=== PATIENT | male | born 1965 | race Caucasian/White ===

== ENCOUNTER → 2020-03-17 08:30 | Outpatient (CLI) | payer OTHER, SELFPAY ==
--- NOTE | ~2020-03-17 | MR_ITS ---
EXAMINATION: MR knee RT wo con DATE: 03/17/2020 09:20 INDICATION: Generalized right knee pain TECHNIQUE: Magnetic resonance imaging (MRI) of the right knee was performed without intravenous contr ast. Sequences included coronal PD-weighted FSE, coronal PD-weighted FS FSE, sagittal T2-weighted FS E, sagittal PD-weighted FS FSE and axial PD weighted fat saturated FSE. COMPARISON: None. FINDINGS: Medial compartment: Complex tear at the posterior body and medial side of the posterior horn of the medial meniscus. Sepa rate small radial tear involving the inner third of the more lateral posterior horn. Chondral surface regularity and shallow fissuring without degenerative subarticular changes at the central aspect of the medial tibial plateau. Cartilage along the weightbearing medial femoral condyle appears normal. Lateral compartment: Partial-thickness chondral fissure extending anteroposteriorly across the central aspect of the later al tibial plateau. Cartilage along the weightbearing lateral femoral condyle appears normal.. Patellofemoral compartment: Deep chondral fissuring which appears near full-thickness without degenerative subarticular changes a t the site of the lateral patellar facet along side the apical ridge. Additional chondral fissuring i nvolving greater than 50% the cartilage thickness at the medial facet. Trochlear cartilage appears no rmal. Ligaments and tendons: Anterior and posterior cruciate ligaments are normal. The medial collateral ligament and fibular adrian ateral ligament complex are normal. The extensor mechanism is normal. The visualized medial and later al hamstring tendons as well as the iliotibial band are normal. Fluid: Minimal right knee joint effusion. No loose osteochondral bodies identified. Small Marie's cyst. Osseous/other: Bone alignment is normal. Normal marrow signal with no fracture or pathologic marrow replacing proces s. There is edema in the superficial suprapatellar fat pad which can be seen with fat pad impingement syndrome. IMPRESSION: 1. Complex medial meniscal tear. 2. Mild tricompartmental osteoarthritis with regions of moderate grade chondromalacia in all 3 compar tments. 3. Edema in the superficial suprapatellar fat pad which can be seen with fat pad impingement syndrome . 4. Minimal right knee joint effusion and small Marie's cyst. Reviewed, dictated and finalized at location A. IMPRESSION: 1. Complex medial meniscal tear. 2. Mild tricompartmental osteoarthritis with regions of moderate grade chondrom alacia in all 3 compartments. 3. Edema in the superficial suprapatellar fat pad which can be seen with fat pa d impingement syndrome. 4. Minimal right knee joint effusion and small Marie's cyst.
== END ==
PROVIDERS: PCP Family Medicine; Visit Provider Nurse Practitioner Family
DX: M25.561 Pain in right knee (principal); M17.11 Unilateral primary osteoarthritis, right knee; S83.231A Complex tear of medial meniscus, current injury, right knee, initial encounter; X58.XXXA Exposure to other specified factors, initial encounter
CPT/HCPCS: 73721

== ENCOUNTER 2020-04-19 12:32 | Outpatient (CLI) | payer OTHER, SELFPAY ==
--- NOTE | 2020-04-19 12:37 | ECG_ITS ---
Measurements Intervals [place] Rate: 78 P: 61 OR: 205 QRS: 71 QRSD: 95 T: 35 QT: 340 QTc: 389 Interpretive Statements SINUS RHYTHM BORDERLINE ST ABNORMALITY- INFERIOR LEADS BORDERLINE ECG Electronically Signed On 04-19-2020 13:07:00 CDT by Naeem Montes D.O.
[2020-04-19 13:21] LABS: Anion Gap 10.8 mmol/L (7-16); Blood Urea Nitrogen 21 mg/dL (9-20); Calcium 9.5 mg/dL (8.4-10.2); Carbon Dioxide 29 mmol/L (22-30); Chloride 100 mmol/L (98-107); Estimated Glomerular Filt Rate > 60; Glucose 104 mg/dL (75-110); Potassium 3.8 mmol/L (3.4-5.0); Sodium 136 mmol/L (137-145)
== END 2020-04-19 12:33 | disposition home or self-care (01) ==
LOC: ANHSURGERY 12:37
PROVIDERS: Anesthesiology; PCP Family Medicine; Visit Provider Orthopaedic Surgery
DX: Z01.818 Encounter for other preprocedural examination (principal); I10 Essential (primary) hypertension
CPT/HCPCS: 36415; 80048; 93005

== ENCOUNTER 2020-04-26 00:27 | Outpatient (CLI) | payer OTHER, SELFPAY ==
[2020-04-26 18:53] LABS: SARS-CoV-2 RNA PCR Negative
== END 2020-04-26 00:28 | disposition home or self-care (01) ==
LOC: ANHCOVIDDT 00:27
PROVIDERS: PCP Family Medicine; Visit Provider Orthopaedic Surgery
DX: Z01.812 Encounter for preprocedural laboratory examination (principal); Z11.59 Encounter for screening for other viral diseases
CPT/HCPCS: 87635; C9803; U0003

== ENCOUNTER 2020-04-28 00:05 | Day surgery (SDC) | payer OTHER, SELFPAY ==
[2020-04-18 10:04] VITALS: BMI 28.6
--- NOTE | 2020-04-20 12:36 | PM.IMHP ---
H&P: HPI History of Present Illness Chief complaint: right medial meniscus tear Narrative: Radames Newell is a 55 year old male Knee Pain Involved knee: right Onset: gradual Location of pain: medial Pain scale (0-10): 8 Character: throbbing, dull ache and shooting Timing of pain: intermittent Exacerbated by: weight bearing, stairs and prolonged activity Relieved by: elevation, ice, rest and NSAIDs Associated symptoms: Reports instability History of occupational/recreational activity with repetitive motion: No History of prior knee injury: No Review of Systems Review of Systems: All systems reviewed & are unremarkable except as noted in HPI and below Constitutional: Constitutional: Denies headache(s) and Denies weakness Eyes: Eyes: Denies blurry vision, Denies change in vision and Denies loss of vision ENT: Denies dizziness, Denies dry mouth, Denies headache(s) and Denies nasal congestion Cardiovascular: Cardiovascular: Denies chest pain, Denies syncope, Denies leg edema and Denies dyspnea on exertion Respiratory: Respiratory: Denies cough and Denies dyspnea on exertion Gastrointestinal: Gastrointestinal: Denies abdominal pain, Denies constipation and Denies diarrhea Genitourinary: Genitourinary: Denies urinary frequency Musculoskeletal: Musculoskeletal: Reports as per HPI and Denies numbness Integumentary/Breasts: Skin/Breast: Reports system reviewed and no additional complaints, except as docu Neurologic: Denies dizziness, Denies syncope, Denies headache(s), Denies loss of vision, Denies numbness and Denies weakness Psychiatric: Psychiatric: Reports no additional psychiatric complaints Endocrine: Endocrine: Reports no additional endocrine complaints Hematologic/Lymphatic: Hematologic/Lymphatic: Reports no additional hematologic/lymphatic complaints [facility] Past Medical History Medical History Depression Fusion of carpal bone, congenital HLD (hyperlipidemia) HTN (hypertension) Medial meniscus tear Right knee pain Vision abnormalities Family History Family History Unknown Cardiovascular disease Diabetes mellitus Hypertension Cancer Nerve disorder Arthritis Social History Social History Smoking packs per day: 1 Smoking cigarettes per day: 20.0 Years smoked: 20 Smoking pack-years: 20.00 Smoking status: Former smoker Tobacco type: cigarettes Additional smoking assessment comments: QUIT 20 YEARS AGO Alcohol intake: current Drinks per week: 3 Substance use: former Substance use type: marijuana 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 [employer] Gender identity (if verbalized by the patient): Male Spiritual care concerns: No Meds Home Medications and Allergies Home Medications Medication Instructions Recorded Confirmed Type amlodipine 10 mg tablet 10 mg PO DAILY 03/20/20 04/18/20 History diazepam 10 mg tablet 20 mg PO HS tablet 03/20/20 04/18/20 History fenofibrate 50 mg capsule 50 mg PO DAILY 03/20/20 04/18/20 History hydrochlorothiazide 12.5 mg tablet 12.5 mg PO DAILY 03/20/20 04/18/20 History omeprazole 20 mg capsule,delayed 20 mg PO DAILY 03/20/20 04/18/20 History release phentermine 37.5 mg capsule 37.5 mg PO DAILY 03/20/20 04/18/20 History trazodone 100 mg tablet 200 mg PO HS PRN tablet 03/20/20 04/18/20 History chlorhexidine gluconate 4 % 1 applic TOPICAL ONCE #237 ml 03/21/20 04/18/20 Rx topical liquid omega 8-quq-rqo-fish oil [Fish Oil] 1 cap PO DAILY 04/18/20 04/18/20 History testosterone cypionate 400 mg IM 2XW 04/18/20 04/18/20 History Allergies Allergy/AdvReac Type Severity Reaction Status Date / Time ESCITALOPRAM OXALATE Allergy Intermediate SEVERE Uncoded 04/18/20 08:49 MOOD SWINGS Exam Narrative: Exam Narrative: Yvan
--- NOTE | 2020-04-27 10:40 | WPDANESEPPF ---
Anes - Initial Pre Proc Eval Procedure: Operation Date: 04/28/20 08:30 Proposed Procedures p Right Knee Arthroscopy, Proceed As Indicated - Travis Hutchinson MD Date/Time: 04/27/20 10:40 Surgeon: Travis Hutchinson MD Pre Op Diagnosis: right medial meniscus tear Patient Data Age: 55 Gender: M Height: 1.85 m Weight: 98.43 kg Allergies Allergy/AdvReac Type Severity Reaction Status Date / Time ESCITALOPRAM OXALATE Allergy Intermediate SEVERE Uncoded 04/28/20 07:00 MOOD SWINGS Home Medications Medication Instructions Recorded Confirmed Type amlodipine 10 mg tablet 10 mg PO DAILY 03/20/20 04/28/20 History diazepam 10 mg tablet 20 mg PO HS tablet 03/20/20 04/28/20 History fenofibrate 50 mg capsule 50 mg PO DAILY 03/20/20 04/28/20 History hydrochlorothiazide 12.5 mg tablet 12.5 mg PO DAILY 03/20/20 04/28/20 History omeprazole 20 mg capsule,delayed 20 mg PO DAILY 03/20/20 04/28/20 History release phentermine 37.5 mg capsule 37.5 mg PO DAILY 03/20/20 04/28/20 History trazodone 100 mg tablet 200 mg PO HS PRN tablet 03/20/20 04/28/20 History chlorhexidine gluconate 4 % 1 applic TOPICAL ONCE #237 ml 03/21/20 04/28/20 Rx topical liquid omega 4-brc-wtl-fish oil [Fish Oil] 1 cap PO DAILY 04/18/20 04/28/20 History testosterone cypionate 400 mg IM 2XW 04/18/20 04/28/20 History Patient hx anesthesia problems: none Family hx anesthesia problems: none PMFSH Past Medical History Medical History (Updated 04/27/20 @ 10:39 by Juan C Verma DO) Anxiety Depression Fusion of carpal bone, congenital HLD (hyperlipidemia) HTN (hypertension) Medial meniscus tear Right knee pain Vision abnormalities Family History Family History Unknown Cardiovascular disease Diabetes mellitus Hypertension Cancer Nerve disorder Arthritis Social History Social History Smoking packs per day: 1 Smoking cigarettes per day: 20.0 Years smoked: 20 Smoking pack-years: 20.00 Smoking status: Former smoker Tobacco type: cigarettes Additional smoking assessment comments: QUIT 20 YEARS AGO Alcohol intake: current Drinks per week: 3 Substance use: former Substance use type: marijuana 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 [employer] Gender identity (if verbalized by the patient): Male Spiritual care concerns: No Anes - Eval Final PreProcedure Day of Procedure 04/27/20 10:40 Patient weight: overweight Heart: regular rate and rhythm Lungs: clear to auscultation and normal air movement Airway: Mallampati scale class II Neurological: alert and oriented Last oral intake: >/= 8 hours ASA classification: III Emergent: no Anesthetic plan: proceed Anesthesia type and monitoring: general LMA and standard monitoring Informed Consent: The patient's anesthetic plan and its attendant risks and benefits were discussed with the patient/family/POA. Questions were solicited and answers provided to the satisfaction of the patient/family/POA.
[2020-04-28] VITALS (9 sets, daily range): BP systolic 130–144; BP diastolic 58–85; PULSE 66–76; RESP 8–20; TEMP 36.1–36.8; O2SAT 95–98
--- NOTE | 2020-04-28 07:27 | WPDHPUPDATE1 ---
History and Physical Update Update Date/Time: 04/28/20 07:27 History and Physical has been reviewed, including an updated exam of the patient. There are NO changes in the patient's condition. Risks, benefits, and alternatives have been discussed and questions answered. Patient agrees to proceed with procedure.
[2020-04-28] MEDS: LACTATED RINGERS 1,000 ML 30 ML IV CONT (07:29)
[2020-04-28] MEDS: CELECOXIB 200 MG CAPSULE PO (07:29)
[2020-04-28] MEDS: ACETAMINOPHEN 500 MG TABLET 1000 MG PO (07:29)
[2020-04-28] MEDS: ceFAZolin 2 GM/D5W 50 ML 2 GM/50 ML BAG IVPB (08:33)
[2020-04-28] MEDS: KETOROLAC 30 MG/ML VIAL (*BKC) 15 MG IV PUSH (09:22)
--- NOTE | 2020-04-28 09:28 | PM.OP ---
Procedure Note - Brief Procedure Note - Brief Date of procedure: 04/28/20 Pre-op diagnosis: right medial meniscus tear Post-op diagnosis: same Procedure performed: R KNEE SCOPE Anesthesia: GLMA Surgeon: Travis Hutchinson MD Estimated blood loss (mL): 5 Complications: No immediate complications Condition: stable Disposition: PACU
--- NOTE | 2020-04-28 10:11 | SUR.PHASEI ---
CRUTCHES ORDERED FOR PT. PT DENIES HAVING CRUTCH TRAINING IN PREOP; PREOP SAYS HE DENIED NEEDING IT.
--- NOTE | 2020-04-28 10:50 | OP_ITS ---
DATE OF PROCEDURE: 04/28/2020 PREOPERATIVE DIAGNOSIS: Right knee medial meniscus tear. POSTOPERATIVE DIAGNOSIS: Right knee medial meniscus tear. PROCEDURE: Right knee arthroscopy with partial medial meniscectomy and major synovectomy. ANESTHESIA: General. COMPLICATIONS: None. INDICATIONS: This is a 55-year-old male who has a large tear of the medial meniscus. He was indicated for right knee arthroscopy. DESCRIPTION OF PROCEDURE: The patient was taken to the operating room in stable condition, placed in the supine position. General anesthesia was induced and then, the right lower extremity was prepped and draped sterilely from the toes to the thigh. Superomedial portal was used for an outflow cannula. Inferolateral portal was used for the camera. The camera was introduced. The patella had grade 2 chondromalacia. The trochlea had minimal chondromalacia. There was significant synovitis in Hoffa synovium and the medial compartment. The medial compartment then was entered. There was a large complex tear of the posterior horn of the medial meniscus. This was approximately 30% of the meniscus involved. A medial portal was established. A biter and shaver were introduced at separate times to resect the medial meniscus tear until that was smoothed down to a stable base. The minimal chondroplasty was performed on the medial femoral condyle and on the tibial plateau. Next, the ACL was identified, it was intact. The lateral compartment was entered. There was no evidence of a lateral meniscus tear and there was no significant chondromalacia. Synovectomy was performed in the lateral compartment due to impinging synovium. Next, Hoffa synovium underwent synovectomy and the superomedial compartment as well. Next, the patella then underwent chondroplasty. The knee joint was irrigated thoroughly. The instruments were removed. The wounds were approximated with 4-0 nylon suture. Sterile dressings were applied. D I MT: Brian
--- NOTE | 2020-04-28 11:35 | SUR.PHASEII ---
PT present for crutch training
== END 2020-04-28 12:09 | disposition home or self-care (01) ==
PROVIDERS: PCP Family Medicine; Visit Provider Orthopaedic Surgery
PROC: (CPT 29870; principal; 2020-04-28 08:30)
DX: M23.321 Other meniscus derangements, posterior horn of medial meniscus, right knee (principal); M22.41 Chondromalacia patellae, right knee; M65.861 Other synovitis and tenosynovitis, right lower leg; I10 Essential (primary) hypertension; E78.5 Hyperlipidemia, unspecified; F41.8 Other specified anxiety disorders; Z87.891 Personal history of nicotine dependence
CPT/HCPCS: 29881; 29876; 87635; 97116; 97161; A9270; J0690; J1100; J1885; J2250; J2405; J2704; J3010; J7120; U0003

== ENCOUNTER 2020-07-04 09:56 | Outpatient (CLI) | payer OTHER, SELFPAY ==
--- NOTE | ~2020-07-04 | US_ITS ---
EXAMINATION: US venous doppler LE RT DATE: 07/04/2020 11:25 INDICATION: Right calf pain. TECHNIQUE: Grayscale ultrasound images without and with compression and Doppler ultrasound images of the right lower extremity veins were obtained. COMPARISON: None. FINDINGS: The visualized portions of right common femoral vein, profunda (deep) femoral vein, femoral vein, pop liteal vein, peroneal veins, posterior tibial veins, and greater saphenous vein outflow are patent. IMPRESSION: 1. No deep venous thrombosis. Reviewed, dictated and finalized at location A.
== END 2020-07-04 09:57 | disposition home or self-care (01) ==
LOC: ANHIMG 09:57
PROVIDERS: PCP Family Medicine; Visit Provider Orthopaedic Surgery
DX: M79.661 Pain in right lower leg (principal)
CPT/HCPCS: 93971

== ENCOUNTER 2022-05-02 14:56 | Emergency (ER) | payer OTHER, SELFPAY ==
--- NOTE | ~2022-05-02 | CT_ITS ---
EXAMINATION: CT abdomen pelvis wo con DATE: 05/02/2022 15:38 INDICATION: Left lower quadrant pain. History of kidney stones. TECHNIQUE: Computed tomography (CT) of the abdomen and pelvis was performed without intravenous contr ast. The dose-length product was 504.86 mGy-cm. Automated exposure control and iterative reconstructi on technique were employed. COMPARISON: CT dated 10/30/2014. FINDINGS: Lung bases are unremarkable. There are calcified right hilar lymph nodes, consistent with c hronic granulomatous disease. No significant pleural or pericardial effusion. There are nonobstructin g bilateral renal stones. There is asymmetric enlargement of the left kidney with moderate perinephri c stranding. There is mild left hydroureteronephrosis with at least 2 stones identified at the left U VJ. Bladder is decompressed. There are multiple pelvic phleboliths. No right ureteral stones or hydro nephrosis. The liver, spleen, pancreas, adrenal glands are unremarkable. Gallbladder is present. Nonobstructive bowel gas pattern. Normal appendix. IMPRESSION: 1. At least 2 partially obstructing left UVJ stones with associated hydroureteronephrosis and perinep hric edema. 2: Nonobstructing bilateral nephrolithiasis. Reviewed, dictated and finalized at location A. IMPRESSION: 1. At least 2 partially obstructing left UVJ stones with associated hydroureter onephrosis and perinephric edema. 2: Nonobstructing bilateral nephrolithiasis.
--- NOTE | ~2022-05-02 | XR_ITS ---
XR abdomen/kub 1V 05/02/2022 15:44 Indication: Left flank pain Procedure: KUB Comparison: CT dated 05/02/2022 Findings: There are bilateral renal stones. There are calcifications in the left pelvis which likely correspond to left UVJ stone seen on CT. Bowel gas pattern nonobstructive. Impression: 1: Left UVJ and bilateral renal stones. Reviewed, dictated and finalized at location A. Impression: 1: Left UVJ and bilateral renal stones.
[2022-05-02 15:01] VITALS: BP 156/88; PULSE 89; RESP 25; O2SAT 99
--- NOTE | 2022-05-02 15:20 | ED.MALEGU ---
HPI - Male Genitourinary General Chief complaint: Urogenital-Male Stated complaint: kidney stones Time Seen by Provider: 05/02/22 15:07 Source: patient and RN notes reviewed Mode of arrival: ambulatory Limitations: no limitations History of Present Illness HPI Narrative: This is a 57 year old male with history of kidney stones who presents for evaluation of left lower abdominal pain since this morning. He has had constant left lower abdominal pain that radiates to his back. He has associate bloating so he has attempted to make himself vomiting. He denies nausea and vomiting. He is also complaining increased urinary urgency and frequency today. He states he had similar episode 1 month ago but he did not seek medical treatment at that time. He had a kidney stone a couple years ago that required lithotripsy. He has appointment with Dr. Mei tomorrow. He took 2 old oxycodone this morning without relief of his pain. He rates his pain 10/10. Related Data Home Medications Medication Instructions Recorded Confirmed amlodipine 10 mg tablet 10 mg PO DAILY 03/20/20 07/06/20 diazepam 10 mg tablet 20 mg PO HS 03/20/20 07/06/20 fenofibrate 50 mg capsule 50 mg PO DAILY 03/20/20 07/06/20 hydrochlorothiazide 12.5 mg tablet 12.5 mg PO DAILY 03/20/20 07/06/20 omeprazole 20 mg capsule,delayed 20 mg PO DAILY 03/20/20 07/06/20 release phentermine 37.5 mg capsule 37.5 mg PO DAILY 03/20/20 07/06/20 trazodone 100 mg tablet 200 mg PO HS PRN insomnia 03/20/20 07/06/20 omega 2-kco-bsr-fish oil 1,000 mg 1 cap PO DAILY 04/18/20 07/06/20 (120 mg-180 mg) capsule (Fish Oil) testosterone cypionate 200 mg/mL 400 mg IM 2XW 04/18/20 07/06/20 intramuscular oil Allergies Allergy/AdvReac Type Severity Reaction Status Date / Time ESCITALOPRAM OXALATE Allergy Intermediate SEVERE Uncoded 07/06/20 10:44 MOOD SWINGS Review of Systems Review of Systems: All systems reviewed & are unremarkable except as noted in HPI and below Constitutional: Constitutional: Denies chills, Denies fatigue and Denies fever(s) Cardiovascular: Cardiovascular: Denies chest pain Respiratory: Respiratory: Denies chest congestion and Denies cough Gastrointestinal: Gastrointestinal: Reports abdominal pain and Reports bloating Genitourinary: Genitourinary: Denies hematuria and Reports urinary frequency Musculoskeletal: Musculoskeletal: Reports back pain [facility] Past Medical History Medical History (Updated 05/02/22 @ 17:44 by Evelin Veronica MD) Anxiety Depression Fusion of carpal bone, congenital HLD (hyperlipidemia) HTN (hypertension) Medial meniscus tear Right knee pain Vision abnormalities Family History Family History Unknown Cardiovascular disease Diabetes mellitus Hypertension Cancer Nerve disorder Arthritis Social History Social History Smoking packs per day: 1 Smoking cigarettes per day: 20.0 Years smoked: 20 Smoking pack-years: 20.00 Smoking status: Former smoker Tobacco type: cigarettes Additional smoking assessment comments: QUIT 20 YEARS AGO Alcohol intake: current Drinks per week: 3 Substance use: former Substance use type: marijuana 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 HENMT: Head: normal to inspection Face and sinus: normal facial exam Eyes: EOM: EOMs intact bilaterally Chest: Chest palpation & inspection: normal inspection of the chest Resp: Effort & Inspection: normal respiratory effort Auscultation: clear to auscultation bilaterally Cardio: Rate: regular rate Rhythm: regular rhythm Heart s
[2022-05-02] MEDS: HYDROmorphone HCL INJ (*CRX) 1 MG/ML SYR IV PUSH (15:26)
[2022-05-02] MEDS: ONDANSETRON INJ 4 MG/2 ML VIAL IV PUSH (15:26)
[2022-05-02 15:29] LABS: Basophils Percent Auto 0.2 % (0.2-1.2); Eosinophils Absolute Auto 0.1 K/mm3 (0-0.3); Eosinophils Percent Auto 0.4 % (0-4.4); Hematocrit 45.5 % (42.0-52.0); Hemoglobin 15.1 g/dL (14.0-18.0); Immature Granulocyte Absolute 0.08 K/mm3 (0.00-0.031); Immature Granulocyte Percent A 0.4 % (0-0.5); Lymphocytes Absolute Auto 2.91 K/mm3 (0.9-3.2); Lymphocytes Percent Auto 14.9 % (18.3-44.2); Mean Corpuscular HGB Conc 33.2 g/dl (32-36); Mean Corpuscular Hemoglobin 30.2 pg (26-34); Mean Platelet Volume 8.9 fl (7.4-10.4); Monocytes Absolute Auto 1.7 K/mm3 (0.1-0.6); Monocytes Percent Auto 8.5 % (2.6-8.5); Neutrophils Absolute Auto 14.8 K/mm3 (1.3-6.7); Neutrophils Percent Auto 75.6 % (45.5-73.1); Platelet Count Result 370 k/mm3 (150-375); Red Cell Distribution Width 14.1 % (11.5-14.5); White Blood Count 19.5 K/mm3 (4.5-10.0)
[2022-05-02 15:39] LABS: Alanine Aminotransferase 40 U/L (6-50); Albumin Level 4.5 g/dL (3.5-5.1); Alkaline Phosphatase 52 U/L (38-126); Anion Gap 7 mmol/L (8-16); Aspartate Amino Transferase 37 U/L (17-59); Bilirubin,Total 0.5 mg/dL (0.2-1.3); Blood Urea Nitrogen 19 mg/dL (9-20); Calcium 9.5 mg/dL (8.4-10.2); Carbon Dioxide 31 mmol/L (22-30); Chloride 97 mmol/L (98-107); Estimated CRCL calculation 62 ml/min; Estimated Glomerular Filt Rate 57; Glucose 125 mg/dL (65-110); Potassium 3.9 mmol/L (3.4-5.0); Sodium 135 mmol/L (137-145)
[2022-05-02] MEDS: SODIUM CHLORIDE 0.9% IV 1,000 ML 999 ML IV CONT (15:40)
[2022-05-02 15:41] LABS: Appearance Urine Cloudy (Clear); Bilirubin Urine Negative (Negative); Color Urine Yellow (Yellow); Glucose Urine UA Negative (Negative); Ketones Urine Negative (Negative); Leukocyte Esterase Ur Negative LEU/UL (Negative); Nitrate Urine Negative (Negative); Protein Urine Negative (Negative); Urobilinogen Urine 0.2 mg/dL (<2.0)
[2022-05-02 15:45] LABS: Add Urine Microscopic? YES; Blood Urine Trace-Intact (Negative)
[2022-05-02 15:47] VITALS: BP 137/79; PULSE 73; RESP 18; O2SAT 95
[2022-05-02 16:03] LABS: Lactic Acid Reflex 0.9 mmol/L (0.7-2.0)
[2022-05-02 16:15] LABS: Amorphous Sediment Urine Few; Bacteria Urine Trace /hpf; Mucus Urine Rare /lpf; Squamous Epithelial Cell Urine Rare /hpf (Few); WBC Urine 0-3 /hpf
[2022-05-02 16:20] VITALS: PULSE 73; RESP 18; O2SAT 98
[2022-05-02 16:28] VITALS: BP 141/76
[2022-05-02] MEDS: TAMSULOSIN HCL 0.4 MG CAPSULE PO (16:51)
[2022-05-02] MEDS: KETOROLAC 30 MG/ML VIAL (*BKC) IV PUSH (16:51)
[2022-05-02 17:43] VITALS: BP 151/55; PULSE 70; TEMP 36.3; O2SAT 100
== END 2022-05-02 18:03 | disposition home or self-care (01) ==
PROVIDERS: Emergency Medicine; Emergency Provider General Practice; PCP Family Medicine
DX: N13.2 Hydronephrosis with renal and ureteral calculous obstruction (principal); E78.5 Hyperlipidemia, unspecified; I10 Essential (primary) hypertension; F32.A Depression, unspecified; F41.9 Anxiety disorder, unspecified; Z87.891 Personal history of nicotine dependence
CPT/HCPCS: 36415; 74018; 74176; 80053; 81001; 83605; 85025; 96361; 96374; 96375; 99284; A9270; J1170; J1885; J2405; J7030

== ENCOUNTER 2022-05-07 09:59 | Outpatient (CLI) | payer OTHER, SELFPAY ==
--- NOTE | ~2022-05-07 | XR_ITS ---
EXAMINATION: XR abdomen/kub 1V INDICATION: Left ureteral stone follow-up TECHNIQUE: Supine views of the abdomen were obtained on 2 radiographs. COMPARISON: 05/02/2022 FINDINGS: There is a stable 8 mm stone at the left ureterovesicular junction. There is a 3 mm stone o f the left kidney. Bowel contents project over the right limiting sensitivity for known renal stones. The bowel gas pattern is normal. There are phleboliths of the pelvis. Mild osteoarthritis is noted i n the hips. IMPRESSION: 1. Stable 8 mm stone at the left ureterovesicular junction. Reviewed, dictated and finalized at location A.
== END 2022-05-07 10:00 | disposition home or self-care (01) ==
PROVIDERS: PCP Family Medicine; Visit Provider Urology
DX: N20.1 Calculus of ureter (principal)
CPT/HCPCS: 74018

== ENCOUNTER 2022-05-10 01:10 | Day surgery (SDC) | payer OTHER, SELFPAY ==
[2022-05-09 09:32] VITALS: BMI 30.3
--- NOTE | 2022-05-09 09:49 | PC.NURSE ---
Report to the Outpatient Waiting Room, entrance under the green pavilion located off [facility], at time ___30____ on date __05/10/22 . OR Time: ___1029 . - You and your visitor will be asked to self-screen and do not enter if you have any COVID symptoms. - Only one visitor and NO children visitors are allowed at this time. - The patient visitor is requested to leave or wait in car when not with patient due to restrictions. - A mask is required within the hospital. Patients may have clear liquids (water, carbonated beverages, clear teas, apple juice) until 3 hours prior to surgery with a maximum of 20 ounces. - No food from midnight until time of surgery Take the following medications with a SIP of water the morning of surgery: ____Amlodipine Medications to discontinue per physician Date to take last dose Please no make-up, nail citizen of [place], hairspray, perfume, deodorant, or body powder the day of surgery. No jewelry (including any body piercings) or valuables the day of surgery, leave them at home. Please take a shower or bath the night before, or the morning of, surgery with an antibacterial soap. Wear comfortable, loose fitting clothing. - Jewelry must be removed prior to entering the operating room. Rings and piercings that are not removed may be cut off. - The hospital will not accept responsibility for valuables. - Please leave all valuables, including medications, at home the day of surgery. If you are going home after surgery, a licensed local company tanker driver must drive you home. - NO public transportation without another adult. - We recommend that an adult stay with you for 24 hours following discharge. - We also recommend that you do not drive, make important decision, drink alcoholic beverages, or take any drugs that were not prescribed by your health care provider for at least 24 hours after your discharge time. Follow any additional instructions given to you from your surgeon. If you or anyone in your household have experienced Covid symptoms in the past week, please notify your surgeon or the nurse liaison at the phone number below for possible testing. Telephone instructions given to ___patient and asked if any additional questions and then verbalized understanding. Patient advised to call surgeon office or pre surgery nurse liaison [phone] if any additional questions.
--- NOTE | 2022-05-09 14:09 | WPDANESEPPF ---
Anes - Initial Pre Proc Eval Procedure: Operation Date: 05/10/22 13:00 Proposed Procedures p Cystoscopy, Left Ureteroscopy, Left Retrograde Pyelogram, Left Stone Extraction, Possible Left Stent Placement, Possible Holmium Laser Procedure - Albin Mei MD Date/Time: 05/09/22 14:09 Surgeon: Albin Mei MD Pre Op Diagnosis: left ureteral kidney stone Patient Data Age: 57 Gender: M Height: 1.85 m Weight: 104.33 kg Allergies Allergy/AdvReac Type Severity Reaction Status Date / Time escitalopram Allergy Intermediate altered Verified 05/10/22 11:48 mood changes Home Medications Medication Instructions Recorded Confirmed Type amlodipine 10 mg tablet 10 mg PO DAILY 03/20/20 05/10/22 History diazepam 10 mg tablet 20 mg PO HS 03/20/20 05/10/22 History fenofibrate 50 mg capsule 50 mg PO DAILY 03/20/20 05/10/22 History hydrochlorothiazide 12.5 mg tablet 12.5 mg PO DAILY 03/20/20 05/10/22 History omeprazole 20 mg capsule,delayed 20 mg PO DAILY 03/20/20 05/10/22 History release phentermine 37.5 mg capsule 37.5 mg PO DAILY 03/20/20 05/10/22 History trazodone 100 mg tablet 200 mg PO HS PRN insomnia 03/20/20 05/10/22 History omega 2-gys-ceu-fish oil 1,000 mg 1 cap PO DAILY 04/18/20 05/10/22 History (120 mg-180 mg) capsule (Fish Oil) hydrocodone 5 mg-acetaminophen 325 1 tablet PO Q6H PRN pain #10 tabs 05/02/22 05/10/22 Rx mg tablet ketorolac 10 mg tablet 10 mg PO Q6H PRN pain #10 tabs 05/02/22 05/10/22 Rx tamsulosin 0.4 mg capsule (Flomax) 0.4 mg PO DAILY #7 caps 05/02/22 05/10/22 Rx Patient hx anesthesia problems: none Family hx anesthesia problems: none Results Review: All pre-operative results and documents have been reviewed as part of the pre-operative evaluation. [facility] Past Medical History Medical History (Updated 05/03/22 @ 00:00 by Background Daemon) Anxiety Depression Fusion of carpal bone, congenital HLD (hyperlipidemia) HTN (hypertension) Medial meniscus tear Right knee pain Vision abnormalities Family History Family History Unknown Cardiovascular disease Diabetes mellitus Hypertension Cancer Nerve disorder Arthritis Social History Social History Smoking packs per day: 1 Smoking cigarettes per day: 20.0 Years smoked: 20 Smoking pack-years: 20.00 Smoking status: Former smoker Tobacco type: cigarettes Smoking end date: 05/09/02 Additional smoking assessment comments: QUIT 20 YEARS AGO Alcohol intake: current Drinks per week: 3 Alcohol use details: RARE Substance use: former Substance use type: marijuana Other substance usage details: [employer] AND [employer] Living arrangements: with family 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 Gender identity (if verbalized by the patient): Male Spiritual care concerns: No Anes - Eval Final PreProcedure Day of Procedure 05/09/22 14:09 Patient weight: obese Heart: regular rate and rhythm Lungs: clear to auscultation Airway: Mallampati scale class II Neurological: alert and oriented Last oral intake: >/= 8 hours ASA classification: III Emergent: no Anesthetic plan: proceed Anesthesia type and monitoring: general LMA and standard monitoring Results Review: All pre-operative results and documents have been reviewed as part of the pre-operative evaluation. Informed Consent: The patient's anesthetic plan and its attendant risks and benefits were discussed with the patient/family/POA. Questions were solicited and answers provided to the satisfaction of the patient/family/POA.
[2022-05-10] VITALS (10 sets, daily range): BP systolic 123–133; BP diastolic 69–82; PULSE 55–73; RESP 12–18; TEMP 36.2–36.5; O2SAT 97–100
--- NOTE | ~2022-05-10 | XR_ITS ---
EXAMINATION: XR retrograde pyelo w/stent LT DATE: 05/10/2022 12:45 INDICATION: Left internal ureteral stent placement TECHNIQUE: Fluoroscopic images from a left internal ureteral stent placement are submitted for review . 24 seconds of fluoroscopy time. 8 fluoroscopic images. FINDINGS: There is a left double-J internal ureteral stent projecting in expected position, with proximal [place] loop at the level of the renal pelvis and distal loop in the pelvis within the bladder lumen. IMPRESSION: 1. Left internal ureteral stent placement. Please refer to real-time procedural findings for detail s. Reviewed, dictated and finalized at location B. IMPRESSION: 1. Left internal ureteral stent placement. Please refer to real-time procedur al findings for details.
--- NOTE | 2022-05-10 08:54 | ECG_ITS ---
Measurements Intervals May Rate: 68 P: 47 SD: 221 QRS: 68 QRSD: 92 T: 42 QT: 362 QTc: 386 Interpretive Statements SINUS RHYTHM WITH FIRST DEGREE AV BLOCK COMPARED TO ECG 04/19/2020 13:15:53 NO SIGNIFICANT DIFFERENCE Electronically Signed On 05-10-2022 12:07:41 CDT by Bong Phillips M.D.
--- NOTE | 2022-05-10 10:57 | WPDHPUPDATE1 ---
History and Physical Update Update Date/Time: 05/10/22 10:57 History and Physical has been reviewed, including an updated exam of the patient. There are NO changes in the patient's condition. Risks, benefits, and alternatives have been discussed and questions answered. Patient agrees to proceed with procedure. Proceed with cystoscopy, left retrograde pyelogram, left ureteroscopy with stone extraction, possible laser, stent placement
[2022-05-10] MEDS: LACTATED RINGERS 1,000 ML 30 ML IV CONT (12:06)
[2022-05-10] MEDS: ceFAZolin 2 GM/D5W 50 ML 2 GM/50 ML BAG IVPB (12:10)
--- NOTE | 2022-05-10 12:43 | P.OP_ITS ---
Procedure Note - Detailed Date of Procedure 05/10/22 Pre-op Diagnosis left ureteral stone 8-9 mm Post-op Diagnosis Same Procedure Performed Cystoscopy, left retrograde pyelogram, left ureteroscopy with holmium laser, stone extraction, left ureteral stent placement 4.8 [place] contour Surgeon Albin Mei MD Anesthesia General Description of Procedure Patient was taken to the operative suite correctly identified. Once anesthesia was obtained was placed in dorsal lithotomy position and prepped and draped usual sterile fashion. Twenty-two Guatemalan scope was inserted the bladder. There was no tumors noted. Left ureteral orifice was cannulated with guidewire. It was dilated with an 8/10 dilator. Rigid ureteral scope was then inserted. The stone was visualized. It was too large to remove in 1 piece. Using a 272 micron fiber we fragmented stone in multiple small pieces. Larger fragments wer e sent for analysis. Pyelogram was then performed to confirm placement of the stent. 4.8 [place] contour stent was then placed with the proximal end coiled in the left renal pelvis and the distal in the bladder. Bladder was drained. 2% viscous lidocaine was inserted into the urethra patient is taken recovery stable condition. He will follow-up in approximately 1 week for cystoscopy with stent removal. Estimated Blood Loss 0 Drains Yes Packing No Pathology Yes Complications No immediate complications Condition Stable Disposition PACU
[2022-05-10] MEDS: LIDOCAINE HCL 2% GEL UROJET 10 ML PKG MUCOUS MEM (12:47)
[2022-05-10] MEDS: oxyCODONE HCL (*CRX) 5 MG TAB IR PO (14:06)
== END 2022-05-10 15:05 | disposition home or self-care (01) ==
PROVIDERS: PCP Family Medicine; Visit Provider Urology
PROC: (CPT 52352; principal; 2022-05-10 13:00)
DX: N20.1 Calculus of ureter (principal); I10 Essential (primary) hypertension; E78.5 Hyperlipidemia, unspecified; F41.9 Anxiety disorder, unspecified; F32.A Depression, unspecified; Z87.891 Personal history of nicotine dependence; E66.9 Obesity, unspecified; Z68.30 Body mass index [BMI] 30.0-30.9, adult
CPT/HCPCS: 52356; 74420; 82365; 88300; 93005; A9270; C1758; C1769; C2617; J0690; J1100; J2405; J2704; J3010; J7120; Q9966

== ENCOUNTER 2024-12-16 20:48 | Observation (INO) | payer BC, SELFPAY ==
--- NOTE | ~2024-12-16 | CT_ITS ---
CT abdomen pelvis w con Ordering provider: Anisa Tiwari MD History: 59 years Male with . R sided flank pain; c/f stones (hx of) . Comparison: Technique: CT abdomen and pelvis with IV and without oral contrast. Automated exposure control and it erative reconstruction technique were employed. The dose-length product was 1050.03 mGy-cm. 100 mL Om nipaque 350 was given IV. Findings: VISUALIZED LOWER CHEST: Normal. UPPER ABDOMINAL ORGANS: Liver: Normal. Gallbladder: Normal. Spleen: Normal. Stomach/duodenum: Normal. Pancreas: Normal. Slightly prominent pancreatic duct. Adrenals: Normal. Kidneys: Stone in the right upper ureter with hydronephrotic changes. This stone measures 8 mm. 4 mm Stone also seen in the may ureter. Tiny stone in the right kidney midpole. PELVIC ORGANS: The bladder shows slightly thickened wall. BOWEL AND MESENTERY: Colon: No evidence of diverticulitis.. Normal appendix. Small Bowel: Normal. No obstruction. Peritoneum/mesentery: No free air or free fluid. No mesenteric lymphadenopathy. RETROPERITONEUM: Mild atheromatous disease of the abdominal aorta. No retroperitoneal lymphadenopat hy. MUSCULOSKELETAL: Superficial soft tissues: 2 Defects are seen in the anterior abdominal wall suggestive of hernia with fat content. Fat stranding is seen in these 2 areas. Otherwise, The superficial soft tissues are nor mal. Bones: Age appropriate degenerative changes of the spine. IMPRESSION: 1. 2 stones in the right ureter with right hydronephrotic changes. Tiny stone in the right kidney mi dpole. 2. No evidence of appendicitis, diverticulitis or intestinal obstruction. Reviewed, dictated and finalized at location A. IMPRESSION: 1. 2 stones in the right ureter with right hydronephrotic changes. Tiny stone in the right kidney midpole. 2. No evidence of appendicitis, diverticulitis or intestinal obstruction.
--- OUTSIDE RECORDS SUMMARY | 2024-12-16 20:50 | XMS_ITS | Clinical Summary ---
Author Organization [facility] Address [address] [place] [address] Care Team Providers Care Truck Manager Name Role Phone Maribel Caceres MD Primary Care Provider + Allergies Active Allergy Reactions Criticality Noted Date Comments Escitalopram Anxiety,Unknown Low 05/25/2024 Fluoxetine Unknown 05/25/2024 Medications diclofenac EC (VOLTAREN) 75 MG tablet Take 1 tablet (75 mg total) by mouth 2 (two) times daily with meals. 4 Active [place]-3 Fatty Acids (OMEGA-3 FISH OIL) 1200 MG Cap Active omeprazole EC 20 MG Tab EC tablet Act yumiko buPROPion XL (WELLBUTRIN XL) 150 MG 24 hr tabletIndications: Moderate episode of recurrent major depressive disorder (CMS/HCC) Take 1 tablet (150 mg total) by mouth daily. 90 tablet 3 4 08/24/20 25 Active prazosin (MINIPRESS) 2 MG capsuleIndications :Sleep terror Take 1 capsule (2 mg total) by mouth nightly at bedtime. 90 capsule 3 5 03/27/20 25 Active sildenafil (VIAGRA) 100 MG tabletIndications: Erectile dysfunction, unspecified erectile dysfunction type Take 1 tablet (100 mg total) by mouth daily as needed. 10 tablet 3 5 Active amLODIPine (NORVASC) 5 MG tabletIndications: Essential hypertension Take 1 tablet (5 mg total) by mouth daily. 90 tablet 1 5 05/21/20 25 Active hydroCHLOROthiazid e (HYDRODIURIL) 25 MG tabletIndications: Essential hypertension Take 1 tablet (25 mg total) by mouth daily. 90 tablet 1 5 05/21/20 25 Active Fenofibrate Micronized (LOFIBRA) 200 MG Cap capsuleIndications :Mixed hyperlipidemia Take 1 capsule (200 mg total) by mouth every morning. 90 capsule 1 5 05/21/20 25 Active lisinopril (PRINIVIL) 40 MG tabletIndications: Essential hypertension Take 1 tablet (40 mg total) by mouth daily. 90 tablet 1 5 05/21/20 25 Active pravastatin (PRAVACHOL) 80 MG tabletIndications: Mixed hyperlipidemia Take 1 tablet (80 mg total) by mouth daily. 90 tablet 1 5 05/21/20 25 Active traZODone (DESYREL) 100 MG tabletIndications: Primary insomnia Take 2 tablets (200 mg total) by mouth nightly at bedtime. 180 tablet 1 5 05/21/20 25 Active diazePAM (VALIUM) 5 MG tabletIndications: Primary insomnia Take 1 tablet (5 mg total) by mouth nightly as needed. 90 tablet 5 Active Fenofibrate Micronized (LOFIBRA) 200 MG Cap capsuleIndications :Mixed hyperlipidemia Take 1 capsule (200 mg total) by mouth every morning. 90 capsule 1 4 11/23/19 25 Discontin ued(Reord er) diazePAM (VALIUM) 5 MG tabletIndications: Primary insomnia Take 1 tablet (5 mg total) by mouth nightly as needed. May fill 09/11/24 90 tablet 4 11/23/19 25 Discontin ued(Reord er) lisinopril (PRINIVIL) 40 MG tabletIndications: Essential hypertension Take 1 tablet (40 mg total) by mouth daily. 90 tablet 1 5 11/23/19 25 Discontin ued(Reord er) hydroCHLOROthiazid e (HYDRODIURIL) 25 MG tabletIndications: Essential hypertension Take 1 tablet (25 mg total) by mouth daily. 90 tablet 1 5 11/23/19 25 Discontin ued(Reord er) pravastatin (PRAVACHOL) 80 MG tabletIndications: Mixed hyperlipidemia Take 1 tablet (80 mg total) by mouth daily. 90 tablet 1 5 11/23/19 25 Discontin ued(Reord er) amLODIPine (NORVASC) 5 MG tabletIndications: Essential hypertension Take 1 tablet (5 mg total) by mouth daily. 90 tablet 1 5 11/23/19 25 Discontin ued(Reord er) traZODone (DESYREL) 100 MG tabletIndications: Primary insomnia Take 2 tablets (200 mg total) by mouth nightly at bedtime. 180 tablet 1 5 11/23/19 25 Discontin ued(Reord er) diazePAM (VALIUM) 5 MG tabletIndications: Primary insomnia Take 1 tablet (5 mg total) by mouth nightly as needed. 90 tablet 5 11/27/19 25 Discontin ued(Reord er) Active Problems Problem Noted Date Diagnosed Date Moderate episode of recurrent major depressive d isorder 08/24/2024 Overview (09/28/2024): Reports symptoms are doing much better, but still notes panic attacks which recur his PTSD symptoms. He did notice improvement with prazosin and wonders about an adjustment. He continues with diazepam 5 mg nightly and every once in a while he will take an extra dose but prefers not to since it does cause significant lethargy the following day. He would like to continue reducing the dose but does note some increased stress with work recently which may prevent him from being able to do so. Assessment & Plan (09/28/2024 9:05 AM PIECE WORKER): Chronic. Relatively controlled though PTSD symptoms are not. We will increase his prazosin to 2 mg nightly. He will continue with the diazepam 5 mg as needed. Encouraged him to periodically trial 2.5 mg during the day and if necessary could take an extra 2.5 mg in the evening instead of full dose which may help with the lethargy side effects the following morning. Assessment & Plan (08/24/2024 12:09 PM PIECE WORKER): Not previously formally identified or diagnosed. Suspect this will be chronic but manageable with medication and counseling. 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 Discussed options of medication management as well. Will trial Wellbutrin 150 mg daily. Essential hypertension 05/25/2024 Overview (05/25/2024): Takes lisinopril, HCTZ, amlodipine. Recently lisinopril was increased to 40 mg. Was drinking propel- 5000 mg sodium daily. Has been told potassium is high. Assessment & Plan (05/25/2024 1:21 PM CDT): Could well. Continue lisinopril, hydrochlorothiazide, amlodipine. Ordered CMP. Mixed hyperlipidemia 05/25/2024 Overview (11/22/2024): Takes pravastatin and fenofibrate. Patient discontinued the high meat diet and has started a high-fiber diet. He reports feeling much better on this. Assessment & Plan (11/22/2024 11:40 AM PIECE WORKER): He would like to see what changes to cholesterol since making dietary changes. Ordered lipid panel. Continue fenofibrate and pravastatin for now. Assessment & Plan (05/25/2024 1:21 PM CDT): Ordered lipid panel. Discussed lifestyle changes which would improve cholesterol perhaps reducing the need for 2 medications to help manage. Gastroesophageal reflux disease 05/25/2024 Overview (05/25/2024): Patient takes omeprazole. Insomnia 05/25/2024 Overview (11/22/2024): Takes trazodone and diazepam. A lot of trauma, night terrors. Has tried ambien. Had a sleep study. Night terrors improved with prazosin. He is no longer having these. He has been able to slowly reduce diazepam and is down to 5 mg nightly but reports that when he is traveling he often uses a second 5 mg tablet. Most recently 90 tablets lasted 2 months which was surprising to him. Assessment & Plan (11/22/2024 11:39 AM PIECE WORKER): Recommend reducing diazepam to 2.5 mg nightly when he is at home and may continue 5 mg with occasional extra 5 mg dose while traveling. UDS and contract today. Assessment & Plan (05/25/2024 1:24 PM CDT): Discussed concerns over long-term diazepam use. He is also interested in reducing or even eliminating diazepam but is concerned about how to go about this. He has been able to reduce diazepam down from 20 mg down to 10 mg. For now we will leave his diazepam and trazodone at current doses but we will slowly work on titrating down. He will trial taking 7.5 mg of diazepam along with his trazodone and we will add prazosin to see if this helps with some of his night terrors. Erectile dysfunction 01/30/2023 Type 2 diabetes mellitus wit hout complication, without long-term current use of insulin ([facility]) 01/24/2023 Overview (11/22/2024): Diet controlled. He is improved his diet substantially. Reports that now he is eating a vegan/primarily [employer] plant-based diet. A1c today 6.4%. Tried ozempic and wegovy. Terrible acid reflux. Assessment & Plan (11/22/2024 11:41 AM PIECE WORKER): Controlled. Continue with diet changes alone. Reviewed dietary recommendations. Foot exam completed 11/2024. Repeat A1c in 6 months. Assessment & Plan (05/25/2024 1:27 PM CDT): A1c 6.1%. For now we will remain off medication. He is controlled. Will check urine micro. Discussed increasing high-fiber foods which will help not only his diabetes but also his cholesterol. Encounters Date Type Department Care Team Description 11/26/2024 Telephone [facility] Family [facility] [address] [place] [address] Maribel Caceres MD Medication 11/22/2024 9:10 AM PIECE WORKER Office Visit [facility] - [place] [address] [place] [address] Maribel Caceres MD Medication Check (Here to for med ck. He is decreasing his diazapam dose. Last dose was 9 pm yest. ) 11/22/2024 Travel 11/08/[address] [place] [address] Maribel Caceres MD Refill Request 10/12/2024 MyChart Message Enc [address] [place] [address] Maribel Caceres MD PSA result 09/28/2024 7:50 AM PIECE WORKER Office Visit [address] [place] [address] Maribel Caceres MD Follow Up (1 month follow up) 09/28/2024 Travel 09/24/[address] [place] [address] Maribel Caceres MD Refill Request from Last 3 Months Immunizations Name Administration Dates Next Due Shingrix 07/05/2020,11/22/2019 Tdap (Boostrix) 06/22/2024 Tdap (Generic) 12/27/2014 Family History Medical History Relation Comments Alcohol Abuse Brother 1 Asthma Brother 1 Drug Abuse Brother 1 Early Brother 1 Hypertension Brother 1 Mental Health Brother 1 Alcohol Abuse Brother 2 Depression Brother 2 Drug Abuse Brother 2 Hypertension Brother 2 Alcohol Abuse Father Arthritis Father Cancer Father Diabetes Father Heart Disease Father Hypertension Father Stroke Father Alcohol Abuse Mother Cancer Mother Depression Mother Hypertension Mother Mental Health Mother Vision loss Paternal Grandmother Immaculate degeneration Relation Status Comments Brother 1 Brother 2 Father Mother Paternal Grandmother Social History Tobacco Use Types Packs/Day Years Used Date Smoking Tobacco: Former Cigarettes 2 20 1 977 - 1996 Smokeless Tobacco: Never Tobacco Cessation:Counseling Given: No Comments:I quit over 20 years ago Alcohol Use Standard Drinks/Week Comments Yes 0 (1 standard drink = 0.6 oz pur e alcohol) rare/occasional PHQ-2 Answer Date Recorded Patient Health Questionnaire-2 Score 0 11/22/2024 Sex and Gender Information Value Date Recorded Sex Assigned at Not on file Legal Sex Male 7:54 PM CDT Gender Identity Not on file Sexual Orientation Not on file Last Filed Vital Signs Vital Sign Reading Time Taken Comments Blood Pressure 111/76 11/22/2024 9:14 AM PIECE WORKER Pulse 73 11/22/2024 9:14 AM PIECE WORKER Temperature 36.3 C (97.4 F) 11/22/2024 9:14 AM PIECE WORKER Respiratory Rate 16 09/28/2024 8:00 AM PIECE WORKER Oxygen Saturation 97% 11/22/2024 9:14 AM PIECE WORKER Inhaled Oxygen Concentration - - Weight 103.7 kg (228 lb 9.6 oz) 11/22/2024 9:14 AM PIECE WORKER Height 182.9 cm (6') 11/22/2024 9:14 AM PIECE WORKER Body Mass Index 31 11/22/2024 9:14 AM PIECE WORKER Plan of Treatment Upcoming Encounters Date Type Department Care Team (Late st Contact Info) Description 05/24/2025 7:40 AM CDT Allied Health/Nurse Visit [facility] Family Medicine [address] [address] Maribel Caceres MD [address] [address] 05/27/2025 9:30 AM CDT Office Visit [facility] - [address] [address] Maribel Caceres MD [address] [address] Health Maintenance Due Date Last Done Comments Pneumococcal Vaccine: Pediatrics (0 to 5 Years) and At-Risk Patients (6 to 64 Years) (1 of 2 - PCV) 1969 Diabetes: Retinopathy Eye Exam 1981 Hepatitis C 1981 COVID-19 Vaccine ( - 2023-2 5 season) 2024 Influenza Adult (#1) 2024 Hemoglobin A1C 05/25/2025 11/22/2024, 05/25/2024 Kidney Health Evaluation 05/28/2025 05/28/2024 Annual Physical 06/22/2025 06/22/2024 Lipid Panel 11/22/2025 11/22/2024, 05/28/2024 Colorectal Cancer Screening Colonoscopy (10 Years) 02/22/2029 02/22/2019 DTaP, Tdap and Td Vaccines ( 3 - Td or Tdap) 06/22/2034 06/22/2024, 12/27/2014 RSV Immunization or 60+ Years (1 - 1-dose 75+ series) 2038 Zoster Vaccines Completed 07/05/2020, 11/22/2019 PHQ-2 (Physician [place]) Completed 11/22/2024 Meningococcal B Vaccine Aged Out No l onger eligible based on patient's age to complete this topic Meningococcal Vaccine Aged Out No yossi kevin eligible based on patient's age to complete this topic RSV Immunizations Under 20 Months Aged Out No longer eligible b ased on patient's age to complete this topic Procedures Procedure Name Priority Date/Time Associated Diagnosis Comments MG/PCCL UDS SCREEN Routine 11/22/2024 10 :33 AM PIECE WORKER Medication management Therapeutic drug monitoring COLLECTION VENOUS BLOOD VENIPUNCTURE Routine 11/22/2024 10:15 AM PIECE WORKER Essential hypertension Mixed hyperlipidemia Type 2 diabetes mellitus without complication, without long-term current use of insulin ([facility]) LIPID PANEL Routine 11/22/2024 10:15 AM PIECE WORKER Mixed hyperlipidemia HEMOGLOBIN, GLYCOSYLATED Routine 11/22/2024 Type 2 diabetes mellitus without complication, without long-term current use of insulin ([facility]) PROSTATE SPECIFIC ANTIGEN,SCREENING Today 10/11/2024 10:15 AM PIECE WORKER Special screening for malignant neoplasm of prostate POTASSIUM, SERUM Routine 10/11/2024 10:1 3 AM PIECE WORKER Hyperkalemia TESTOSTERONE, FREE & TOTAL Routine 09/23/2024 8:44 AM PIECE WORKER Other fatigue COMPREHENSIVE METABOLIC PANEL Today 09/23/2024 8:44 AM PIECE WORKER Other fatigue CBC W/DIFF AUTOMATED Routine 09/23/2024 8:44 AM PIECE WORKER Other fatigue TSH W/REFLEX Today 09/23/2024 8:44 AM PIECE WORKER Other fatigue COLONOSCOPY GENERIC (SCAN ORDER) 02/22/2019 from Last 3 Months or Most Recently Relevant to Health Maintenance Results * (ABNORMAL) MG/PCCL UDS SCREEN (11/22/2024 10:33 AM PIECE WORKER) FENTANYL SCREEN (U) NEGATIVE <0.5 ng/mL [facility] Comment: See Note A See Note A MORPHINE (U) NEGATIVE <10 ng/mL [facility] Comment: See Note A See Note A AMPHETAMINES PM NEGATIVE <500 ng/mL [facility] Comment: See Note A See Note A BARBITURATES PM (U) NEGATIVE <300 ng/mL [facility] Comment: See Note A See Note A BENZODIAZEPINES PM (U) POSITIVE(A) <100 ng/mL [facility] Comment: See Note A See Note A COCAINE METABOLITE PM (U) NEGATIVE <150 ng/mL [facility] Comment: See Note A See Note A MARIJUANA METABOLITE PM (U) NEGATIVE <20 ng/mL [facility] Comment: See Note A See Note A METHADONE PM (U) NEGATIVE <100 ng/mL [facility] Comment: See Note A See Note A OPIATES PM (U) NEGATIVE <100 ng/mL [facility] Comment: See Note A See Note A OXYCODONE PM (U) NEGATIVE <100 ng/mL [facility] Comment: See Note A See Note A CREATININE RANDOM (U) 51.5 > or = 20.0 mg/dL [facility] pH PM (U) 7.2 4.5 - 9.0 [facility] OXIDANT NEGATIVE <200 mcg/mL [facility] NOTE [facility] Comment: This drug testing is for medical treatment only. Analysis was performed as non-forensic testing and these results should be used only by healthcare providers to render diagnosis or treatment, or to monitor progress of medical conditions. Note A: The results are presumptive; based only on screening methods, and they have not been confirmed by a definitive method. LDT Notes: Confirmation tests were developed and their analytical performance characteristics have been determined by [facility]. It has not been cleared or approved by the FDA. This assay has been validated pursuant to the CLIA regulations and is used for clinical purposes. Healthcare Providers needing Interpretation assistance, please contact us at [phone] ( ) M-F, 8am to 10pm EST URINE SPECIMEN / Unknown 11/22/2024 10:33 AM PIECE WORKER 11/23/2024 1:13 AM PIECE WORKER Narrative Resulting Agency Comment Performing Organization Information: Site ID: [id number] [facility] Address: [address] [place] [address] Director: Cash Holley Site ID: [id number] Name: [facility] Address: [id number] [place] [phone] Director: Sherwin Hillman MD Maribel Caceres MD URINE ORDERABLES Final R esult [facility] Patient Feed [facility] [address] [place] [address] Patient Feed [facility] [address] [place], [place] [address] * LIPID PANEL (11/22/2024 10:15 AM PIECE WORKER) CHOLESTEROL 171 <200 MG/DL 11/22/2024 3:45 PM PIECE WORKER [facility] TRIGLYCERIDES 137 <150 MG/DL 11/22/2024 3:45 PM PIECE WORKER [facility] HDL 57 >40 MG/DL 11/22/2024 3:45 PM PIECE WORKER [facility] LDL-C 87 <100 MG/DL 11/22/2024 3:45 PM PIECE WORKER [facility] VLDL CALCULATION 27 5 - 28 MG/DL 11/22/2024 3:45 PM PIECE WORKER [facility] CHOL/HDL RATIO 3.0 0.0 - 4.0 11/22/2024 3:45 PM PIECE WORKER [facility] LDL/HDL 1.5 0.41 - 2.13 11/22/2024 3:45 PM PIECE WORKER [facility] NON HDL CHOLESTEROL 114 <140 MG/DL 11/22/2024 3:45 PM PIECE WORKER [facility] 11/22/2024 10:1 5 AM PIECE WORKER Maribel Caceres MD LABORATORY Final Re sult [facility] [address] [place] [address], * A1C (BACK OFFICE) (11/22/2024) HGB A1C 6.4 % [address] [place] 11/22/2024 Maribel Caceres MD LABORATORY Final Re sult [address] [place] [address] [place] [address], * (ABNORMAL) PROSTATE SPECIFIC ANTIGEN,SCREENING (10/11/2024 10:15 AM PIECE WORKER) PSA TOTAL 2.68(H) < OR = 2.50 ng/mL Patient Feed [facility] Comment: The total PSA value from this assay system is standardized against the WHO standard. The test result will be approximately 20% lower when compared to the equimolar-standardized total PSA (Marie Sarah). Comparison of serial PSA results should be interpreted with this fact in mind. This test was performed using the Siemens chemiluminescent method. Values obtained from different assay methods cannot be used interchangeably. PSA levels, regardless of value, should not be interpreted as absolute evidence of the presence or absence of disease. 10/11/2024 10:1 5 AM PIECE WORKER 10/11/2024 10:16 AM PIECE WORKER Narrative Resulting Agency Comment Performing Organization Information: Site ID: [place] Name: [facility] Address: [address] [place] [phone] Director: Sherwin Hillman MD us Maribel Caceres MD LABORATORY Final Re sult [facility] [address] [place] [address], [place] * POTASSIUM, SERUM (10/11/2024 10:13 AM PIECE WORKER) POTASSIUM S/P/B 4.8 3.5 - 5.3 mmol/L [facility] 10/11/2024 10:1 3 AM PIECE WORKER 10/11/2024 10:14 AM PIECE WORKER Narrative Resulting Agency Comment Performing Organization Information: Site ID: [id number] Name: [facility] Address: [address] [place] [phone] Director: Sherwin Hillman MD us Maribel Caceres MD LABORATORY Final Re sult Performing Organization Address [facility]/ZIP Co de Phone Number [facility] [id number] [place] [address], [place] * TSH W/REFLEX (09/23/2024 8:44 AM PIECE WORKER) TSH 1.63 0.40 - 4.50 mIU/L [facility] 09/23/2024 8:44 AM PIECE WORKER 09/23/2024 8:45 AM PIECE WORKER Narrative Resulting Agency Comment Performing Organization Information: Site ID: [id number] Name: [facility] Address: [address] [place] [phone] Director: Sherwin Hillman MD us Maribel Caceres MD LABORATORY Final Re sult [facility] [id number] [place] [address], [place] * TESTOSTERONE, FREE & TOTAL (09/23/2024 8:44 AM PIECE WORKER) Pathologist [facility] TESTOSTERONE TOTAL 464 250 - 1,100 ng/dL [facility] Comment: For additional information, please refer to https://education.[employer]/faq/NRO941 (This link is being provided for informational/educational purposes only.) (Note) This test was developed and its analytical performance characteristics have been determined by [employer]. It has not been cleared or approved by the FDA. This assay has been validated pursuant to the CLIA regulations and is used for clinical purposes. TESTOSTERONE FREE 81.5 35.0 - 155.0 pg/mL [facility] Comment: (Note) This test was developed and its analytical performance characteristics have been determined by [employer]. It has not been cleared or approved by the FDA. This assay has been validated pursuant to the CLIA regulations and is used for clinical purposes. [facility] [address] [place] [address],[place] [address] Raegan Guerrero MD, PhD 09/23/2024 8:44 AM PIECE WORKER 09/23/2024 8:45 AM PIECE WORKER Narrative Resulting Agency Comment Performing Organization Information: Site ID: [id number] Name: [facility] Address: [address] [place] [address], [address] [phone] Director: Raegan Guerrero MD,PhD us Maribel Caceres MD LABORATORY Final Re sult [facility] [facility] [address] [place] [address], [place] [phone], * (ABNORMAL) COMPREHENSIVE METABOLIC PANEL (09/23/2024 8:44 AM PIECE WORKER) [facility] GLUCOSE 128(H) 65 - 99 mg/dL Patient Feed [facility] Comment: Fasting reference interval For someone without known diabetes, a glucose value >125 mg/dL indicates that they may have diabetes and this should be confirmed with a follow-up test. BUN 29(H) 7 - 25 mg/dL Patient Feed [facility] CREATININE S/P/B 1.10 0.70 - 1.35 mg/dL [facility] GFR ESTIMATE 76 > OR = 60 mL/min/1.7 3m2 Patient Feed [facility] BUN CREATININE RATIO 26(H) 6 - 22 (calc) Patient Feed [facility] SODIUM S/P/B 139 135 - 146 mmol/L Patient Feed [facility] POTASSIUM S/P/B 5.4(H) 3.5 - 5.3 mmol/L Patient Feed [facility] CHLORIDE S/P/B 104 98 - 110 mmol/L Patient Feed [facility] CO2 31 20 - 32 mmol/L Patient Feed [facility] CALCIUM S/P/B 10.0 8.6 - 10.3 mg/dL Patient Feed [facility] TOTAL PROTEIN S/P/B 6.5 6.1 - 8.1 g/dL Patient Feed [facility] ALBUMIN S/P/B 4.3 3.6 - 5.1 g/dL Patient Feed [facility] GLOBULIN 2.2 1.9 - 3.7 g/dL (calc) Patient Feed [facility] ALBUMIN/GLOBULIN RATIO 2.0 1.0 - 2.5 (calc) Patient Feed [facility] BILIRUBIN TOTAL S/P/B 0.3 0.2 - 1.2 mg/dL Patient Feed [facility] ALKALINE PHOSPHATASE S/P/B 43 35 - 144 U/L Patient Feed [facility] AST 13 10 - 35 U/L Patient Feed [facility] ALT 15 9 - 46 U/L Patient Feed [facility] 09/23/2024 8:44 AM PIECE WORKER 09/23/2024 8:45 AM PIECE WORKER Narrative Resulting Agency Comment Performing Organization Information: Site ID: [place] Name: [facility] Address: [address] [place] [address] Director: Sherwin Hillman MD us Maribel Caceres MD LABORATORY Final Re sult [facility] [address] [place] [address], * CBC W/DIFF AUTOMATED (09/23/2024 8:44 AM PIECE WORKER) WBC 6.7 3.8 - 10.8 Thousand/u L Patient Feed [facility] RBC 4.50 4.20 - 5.80 Million/uL [facility] HGB 13.9 13.2 - 17.1 g/dL [facility] HCT 42.1 38.5 - 50.0 % [facility] MCV 93.6 80.0 - 100.0 fL [facility] MCH 30.9 27.0 - 33.0 pg [facility] MCHC 33.0 32.0 - 36.0 g/dL [facility] Comment: For adults, a slight decrease in the calculated MCHC value (in the range of 30 to 32 g/dL) is most likely not clinically significant; however, it should be interpreted with caution in correlation with other red cell parameters and the patient's clinical condition. RDW 12.4 11.0 - 15.0 % [facility] PLT 316 140 - 400 Thousand/u L [facility] MPV 9.7 7.5 - 12.5 fL [facility] ABS. NEUTROPHILS 2,660 1,500 - 7,800 cells/uL [facility]. LYMPHOCYTES 3,223 850 - 3,900 cells/uL [facility]. MONOCYTES 590 200 - 950 cells/uL [facility]. EOSINOPHILS 181 15 - 500 cells/uL [facility]. BASOPHILS 47 0 - 200 cells/uL [facility] SEG NEUTROPHILS 39.7 % [facility] LYMPHOCYTES 48.1 % [facility] MONOCYTES 8.8 % [facility] EOSINOPHILS 2.7 % [facility] BASOPHILS 0.7 % [facility] 09/23/2024 8:44 AM PIECE WORKER 09/23/2024 8:45 AM PIECE WORKER Narrative Resulting Agency Comment Performing Organization Information: Site ID: [place] Name: [facility] Address: [address] [id number] Director: Sherwin Hillman MD Maribel Caceres MD LABORATORY Final Re sult [facility] Newsle [facility] [address] [address], [place] * COLONOSCOPY GENERIC (SCAN ORDER) (02/22/2019) 02/22/2019 [facility] Scanned SCANNING Final Resu lt from Last 3 Months or Most Recently Relevant to Health Maintenance Insurance [facility] Care Teams Truck Manager Relationship Specialty Start Date End Date Maribel Caceres MD [address] [place] [id number] PCP - General FAMILY PRACTICE 05/19/24
--- OUTSIDE RECORDS SUMMARY | 2024-12-16 20:50 | XMS_ITS | CONTINUITY OF CARE DOCUMENT ---
Author Name chelle corbett Address Unknown Organization [facility] Address [address] [place] [address] [address] [place] [address] Phone [phone] Care Team Providers Care Rug Repairer Name Role Phone Pan CARUSO, Evelyn Unavailable [phone] PHYLLIS CARUSO, RUNDA Unavailable PHYLLIS CARUSO, RUNDA Unavailable PROBLEMS Condition Status Date Provider Notes SHORTNESS OF BREATH active Chyna Stephen CHEST PAIN-11/30 CATH NEG EF 60 active ? Josh ucrrie RN ABNORMAL STRESS ECHO active - KEVIN RICO NP ABNORMAL ROUTINE STRESS-11/30 active ? Josh barry RN HYPERCHOLESTEROLEMIA SARAH L HYPERTRIGLYCERIDEMIA active Evelyn Perla MD ENCOUNTERS Date Type Provider Location Encounter Diag nosis - In-person encounter Office Visit Evelyn Perla MD [facility] - In-person encounter Office Visit Evelyn Perla MD [facility] HYPERCHOLESTEROLEMIA FAMILIAL HYPERTRIGLYCERIDEMIA - In-person encounter Office Visit Evelyn Perla MD [facility] Office ABNORMAL STRESS ECHOABNORMAL ROUTINE STRESS-11/30 - In-person encounter Office Visit Evelyn Perla MD [facility] CHEST PAIN-11/30 CATH NEG EF 60 VITAL SIGNS Date Observation Value Provider blood pressure, diastolic 86 mm[Hg] Daniel Montano RN blood pressure, systolic 126 mm[Hg] Josh Montano RN pulse rate 68 /min Josh Montano RN oxygen saturation, oximetry 97 % Josh Montano RN respiratory rate E&M 18 /min Josh pembertonbreonna PADILLA Body Mass Index (Ratio) 34.30 kg/m2 Josh Montano RANDY weight in kilograms E&M 114.55 kg Josh Montano RANDY height in centimeters E&M 182.88 cm Daniel lebron Montano RANDY weight E&M 252 [lb_av] Josh Montano RANDY height E&M 72 [in_i] Josh Montano RANDY blood pressure, diastolic 69 mm[Hg] Mcgarry blood pressure, systolic 126 mm[Hg] Nigel Collado pulse rate 86 /min Isaías Collado oxygen saturation, oximetry 98 % Isaías Collado respiratory rate E&M 16 /min Isaías Collado weight E&M 233 [lb_av] Isaías Collado blood pressure, diastolic, left arm 87 mm [Hg] Loly Whitehorn MA blood pressure, systolic, left arm 128 mm [Hg] Loly Whitehorn MA blood pressure, diastolic, right arm 90 m m[Hg] Loly Whitehorn MA blood pressure, systolic, right arm 126 m m[Hg] Loly Whitehorn ME blood pressure, diastolic 90 mm[Hg] florence Smithhorn ME blood pressure, systolic 126 mm[Hg] Kayla Smithkel ME pulse rate 64 /min Tyshawnkarlee Doty rn MA oxygen saturation, oximetry 94 % Loly Whitehorn MA respiratory rate E&M 16 /min Loly Whitehorn ME weight E&M 243 [lb_av] Loly Lalitha padilla MA blood pressure, diastolic 84 mm[Hg] Ca rodgerace Dionne blood pressure, systolic 123 mm[Hg] Can dace Dionne blood pressure, diastolic 85 mm[Hg] Gonzalez Collado blood pressure, systolic 131 mm[Hg] Nigel gomez [place] pulse rate 86 /min [facility] oxygen saturation, oximetry 95 % [facility] [place] respiratory rate E&M 16 /min [facility] [place] weight E&M 244 [lb_av] [facility] RESULTS Date Observation Value Provider Reference Range Interpretation Location 0 anion gap, serum 10.0 [facility] 0 Estimated Glomerular Filtration Rate (calc) 74 mL/min/{1 .73_m2} [facility] 0 calcium, serum 9.8 mg/dL [facility] 0 blood glucose, fasting 108 mg/dL [facility] 0 creatinine, serum 1.13 mg/dL [facility] 0 urea nitrogen, blood 19 mg/dL [facility] 0 carbon dioxide, serum, total 28 mmol/L [facility] 0 chloride, serum 102 mmol/L [facility] 0 potassium, serum 4.0 mmol/L [facility] 0 sodium, serum 136 mmol/L [facility] 0 triglyceride, serum, fasting 199 mg/dL [facility] 0 HDL cholesterol, serum 38 mg/dL [facility] 0 LDL cholesterol, serum 139 mg/dL [facility] 0 cholesterol, serum 217 mg/dL [facility] 0 prothrombin time (patient) 13.3 s [facility] 0 international normalized ratio (INR) 0.99 [facility] 0 platelet count 434 10*3/uL [facility] 0 red blood cell distribution width 12.5 % [facility] 0 mean corpuscular hemoglobin concentration, RBC 35.0 g/dL [facility] 0 mean corpuscular hemoglobin, RBC 31.4 pg Yoselin Alvarado 0 mean corpuscular volume, RBC 89.5 fL Yoselin Alvarado 0 hematocrit, blood 43.7 % Yoselin Alvarado 0 hemoglobin, blood 15.3 g/dL Yoselin Alvarado 0 erythrocyte (RBC) count 4.88 10*6/mm3 Yoselin Alvarado 0 monocyte count, blood 0.63 10*3/mm3 Yoselin Alvarado 0 lymphocyte count, blood 4.57 10*3/mm3 Yoselin Alvarado 0 monocytes as percent of blood leukocytes 7.6 % Yoselin Alvarado 0 lymphocytes as percent of blood leukocytes 55.4 % Yoselin Alvarado 0 leukocyte count, blood 8.25 10*3/mm3 Yoselin Alvarado HISTORY OF MEDICATION USE Medication Status Instructions Dates Provider Indications Com ments LOVAZA 1 GM ORAL CAPSULE active Take 2 caps twice daily Josh Sarkar RN TRILIPIX 135 MG ORAL CAPSULE DELAYED RELEASE active 1 tab by mouth daily Christy O'Jeovany DIAZEPAM 10 MG ORAL TABLET active 15 mg tab by mouth daily as needed Josh Montano RN DIOVAN 320 MG ORAL TABLET active 1 tab by mouth daily Christy O'Jeovany AMLODIPINE BESYLATE 5 MG ORAL TABLET active 1 tab by mouth daily Christy O'Jeovany METOPROLOL SUCCINATE ER 50 MG ORAL TABLET EXTENDED RELEASE 24 HOUR active 1 tab by mouth daily Christy O'Jeovany HYDROCHLOROTHIAZIDE 25 MG ORAL TABLET active 1 tab by mouth daily Christy O'Jeovany SM ASPIRIN LOW DOSE 81 MG ORAL TABLET DELAYED RELEASE active 1 tab by mouth daily Christy O'Jeovany SW OMEPRAZOLE 20 MG ORAL TABLET DELAYED RELEASE active 1 tab by mouth daily Christy O'Jeovany SOCIAL HISTORY Date Observation Value Provider social history reviewed E&M reviewed Evelyn Perla MD drug use none Evelyn Perla MD passive cigarette sm hallie exposure no Josh Montano RN smoking history, tot al pack/year 30 Josh Montano RN smoking, year quit 1998 Josh ravi RN smoking status former smoker Josh Whalen social history reviewed E&M reviewed Evelyn Perla MD social history reviewed E&M reviewed KEVIN RICO NP social history E&M Marital Statu s: Andrzej kay with family/friends E thnicity: Evelyn Perla MD drug use none Evelyn Perla MD social history reviewed E&M reviewed Evelyn Perla MD physical exercise, frequency, days per week yes [employer] caffeine use, averag e drinks per day yes [facility] alcohol use, average drinks per day social basis only [employer] number of years as a smoker 10 years or m ore [facility] smoking status Quit [facility] FUNCTIONAL STATUS Date Observation Value Provider periodic limb movement index absent (0) Sadie Truong MENTAL STATUS Date Observation Value Provider assessment of judgme nt and insight E&M Alert and oriented to time, place and person. Mood and affect are normal. Evelyn Perla MD assessment of judgme nt and insight E&M Alert and oriented to time, place and person. Mood and affect are normal. Evelyn Perla MD assessment of judgme nt and insight E&M Alert and oriented to time, place and person. Mood and affect are normal. KEVIN RICO NP assessment of judgme nt and insight E&M Alert and oriented to time, place and person. Mood and affect are normal. Evelyn Perla MD INSURANCE PROVIDERS Payer name Policy type / Coverage type [facility] libertarian ID [facility] [id number] TREATMENT PLAN Date Name Performer routine: H is updated medication list for this problem includes: Sm Aspirin Low Dose 81 Mg Tbec (Aspirin) ..... 1 tab by mouth daily Hydrochlorothiazide 25 Mg Tabs (Hydrochlorothiazide) ..... 1 tab by mouth daily Metoprolol Succinate 50 Mg [id number] (Metoprolol succinate) ..... 1 tab by mouth daily Amlodipine Besylate 5 Mg Tabs (Amlodipine besylate) ..... 1 tab by mouth daily BP today: 126/86 Prior BP: 126/69 (01/08/2011) H gb: 15.3 (11/29/2010) HCT: 43.7 (11/29/2010) RBC: 4.88 (11/29/2010) WBC: 8.25 (11/29/2010) B UN: 19 (11/29/2010) Creat: 1.13 (11/29/2010) Glucose: 108 (11/29/2010) N a+: 136 (11/29/2010) K+: 4.0 (11/29/2010) Cl: 102 (11/29/2010) Anion Gap: 10.0 (11/29/2010) Calcium: 9.8 (11/29/2010) Cardiac Cath: Normal coronary arteries. Normal left ventricular systolic function. EF 60%. (11/30/2010) Evelyn Perla MD routine: H is updated medication list for this problem includes: Sm Aspirin Low Dose 81 Mg Tbec (Aspirin) ..... 1 tab by mouth daily Hydrochlorothiazide 25 Mg Tabs (Hydrochlorothiazide) ..... 1 tab by mouth daily Metoprolol Succinate 50 Mg [id number] (Metoprolol succinate) ..... 1 tab by mouth daily Amlodipine Besylate 5 Mg Tabs (Amlodipine besylate) ..... 1 tab by mouth daily Diovan 320 Mg Tabs (Valsartan) ..... 1 tab by mouth daily Orders: E KG ([id number]) BP today: 126/86 Prior BP: 126/69 (01/08/2011) C ardiac Cath: Normal coronary arteries. Normal left ventricular systolic function. EF 60%. (11/30/2010) H gb: 15.3 (11/29/2010) HCT: 43.7 (11/29/2010) RBC: 4.88 (11/29/2010) WBC: 8.25 (11/29/2010) B UN: 19 (11/29/2010) Creat: 1.13 (11/29/2010) Glucose: 108 (11/29/2010) N a+: 136 (11/29/2010) K+: 4.0 (11/29/2010) Cl: 102 (11/29/2010) Evelyn Perla MD routine: H is updated medication list for this problem includes: Sm Aspirin Low Dose 81 Mg Tbec (Aspirin) ..... 1 tab by mouth daily Metoprolol Succinate 50 Mg [id number] (Metoprolol succinate) ..... 1 tab by mouth daily Amlodipine Besylate 5 Mg Tabs (Amlodipine besylate) ..... 1 tab by mouth daily BP today: 126/86 Prior BP: 126/69 (01/08/2011) C ardiac Cath: Normal coronary arteries. Normal left ventricular systolic function. EF 60%. CH (11/30/2010) C HOL: 217 (11/29/2010) LDL: 139 (11/29/2010) HDL: 38 (11/29/2010) T (11/29/2010) H gb: 15.3 (11/29/2010) HCT: 43.7 (11/29/2010) RBC: 4.88 (11/29/2010) WBC: 8.25 (11/29/2010) B UN: 19 (11/29/2010) Creat: 1.13 (11/29/2010) Glucose: 108 (11/29/2010) N a+: 136 (11/29/2010) K+: 4.0 (11/29/2010) Cl: 102 (11/29/2010) PT: 13.3 (11/29/2010) INR: 0.99 (11/29/2010) Evelyn Perla MD routine: H is updated medication list for this problem includes: Trilipix 135 Mg Cpdr (Choline fenofibrate) ..... 1 tab by mouth daily Lovaza 1 Gm Caps (Rehdt-6-uxjf ethyl esters) ..... Take 2 caps twice daily BP today: 126/86 Prior BP: 126/69 (01/08/2011) C HOL: 217 (11/29/2010) LDL: 139 (11/29/2010) HDL: 38 (11/29/2010) T (11/29/2010) Evelyn Perla MD follow up: H is updated medication list for this problem includes: Trilipix 135 Mg Cpdr (Choline fenofibrate) ..... 1 tab by mouth daily Lovaza 1 Gm Caps (Ioaab-5-zgsg ethyl esters) ..... Take 2 caps twice daily BP today: 126/69 Prior BP: 126/90 (11/29/2010) C HOL: 217 (11/29/2010) LDL: 139 (11/29/2010) HDL: 38 (11/29/2010) T (11/29/2010) Evelyn Perla MD follow up: H is updated medication list for this problem includes: Sm Aspirin Low Dose 81 Mg Tbec (Aspirin) ..... 1 tab by mouth daily Hydrochlorothiazide 25 Mg Tabs (Hydrochlorothiazide) ..... 1 tab by mouth daily Metoprolol Succinate 50 Mg Zq43a-cal (Metoprolol succinate) ..... 1 tab by mouth daily Amlodipine Besylate 5 Mg Tabs (Amlodipine besylate) ..... 1 tab by mouth daily Diovan 320 Mg Tabs (Valsartan) ..... 1 tab by mouth daily BP today: 126/69 Prior BP: 126/90 (11/29/2010) E chocardiogram: There is hypokinesis in the mid to distal anteroseptal wall and apical septal wall. Normal left ventricular size. Normal left ventricular wall thickness. There is E to A wave reversal consistent with impaired LV relaxation. Normal E/E` 5.6. Left ventricular ejection fraction is estimated at 50%. There is trace mitral valve regurgitation. There is trace tricuspid valve regurgitation. The IVC is not well visualized. Unable to adequately assess the RVSP. C NE (11/28/2010) C ardiac Cath: Normal coronary arteries. Normal left ventricular systolic function. EF 60%. CH (11/30/2010) H gb: 15.3 (11/29/2010) HCT: 43.7 (11/29/2010) RBC: 4.88 (11/29/2010) WBC: 8.25 (11/29/2010) B UN: 19 (11/29/2010) Creat: 1.13 (11/29/2010) Glucose: 108 (11/29/2010) N a+: 136 (11/29/2010) K+: 4.0 (11/29/2010) Cl: 102 (11/29/2010) Evelyn Perla MD follow up: H is updated medication list for this problem includes: Sm Aspirin Low Dose 81 Mg Tbec (Aspirin) ..... 1 tab by mouth daily Hydrochlorothiazide 25 Mg Tabs (Hydrochlorothiazide) ..... 1 tab by mouth daily Metoprolol Succinate 50 Mg [id number]-[id number] (Metoprolol succinate) ..... 1 tab by mouth daily Amlodipine Besylate 5 Mg Tabs (Amlodipine besylate) ..... 1 tab by mouth daily Diovan 320 Mg Tabs (Valsartan) ..... 1 tab by mouth daily BP today: 126/69 P rior BP: 126/90 (11/29/2010) Prior 10 Yr Risk Heart Disease: Not enough information (11/28/2010) Labs Reviewed: C reat: 1.13 (11/29/2010) C hol: 217 (11/29/2010) HDL: 38 (11/29/2010) LDL: 139 (11/29/2010) T (11/29/2010) Evelyn Perla MD follow up: H is updated medication list for this problem includes: Sm Aspirin Low Dose 81 Mg Tbec (Aspirin) ..... 1 tab by mouth daily Metoprolol Succinate 50 Mg Bu71v-pbd (Metoprolol succinate) ..... 1 tab by mouth daily Amlodipine Besylate 5 Mg Tabs (Amlodipine besylate) ..... 1 tab by mouth daily BP today: 126/69 Prior BP: 126/90 (11/29/2010) C ardiac Cath: Normal coronary arteries. Normal left ventricular systolic function. EF 60%. CH (11/30/2010) C HOL: 217 (11/29/2010) LDL: 139 (11/29/2010) HDL: 38 (11/29/2010) T (11/29/2010) H gb: 15.3 (11/29/2010) HCT: 43.7 (11/29/2010) RBC: 4.88 (11/29/2010) WBC: 8.25 (11/29/2010) B UN: 19 (11/29/2010) Creat: 1.13 (11/29/2010) Glucose: 108 (11/29/2010) N a+: 136 (11/29/2010) K+: 4.0 (11/29/2010) Cl: 102 (11/29/2010) PT: 13.3 (11/29/2010) INR: 0.99 (11/29/2010) E chocardiogram: There is hypokinesis in the mid to distal anteroseptal wall and apical septal wall. Normal left ventricular size. Normal left ventricular wall thickness. There is E to A wave reversal consistent with impaired LV relaxation. Normal E/E` 5.6. Left ventricular ejection fraction is estimated at 50%. There is trace mitral valve regurgitation. There is trace tricuspid valve regurgitation. The IVC is not well visualized. Unable to adequately assess the RVSP. CNE (11/28/2010) Evelyn Perla MD follow up Evelyn Perla MD follow up: H is updated medication list for this problem includes: Sm Aspirin Low Dose 81 Mg Tbec (Aspirin) ..... 1 tab by mouth daily Hydrochlorothiazide 25 Mg Tabs (Hydrochlorothiazide) ..... 1 tab by mouth daily Metoprolol Succinate 50 Mg [id number] (Metoprolol succinate) ..... 1 tab by mouth daily Amlodipine Besylate 5 Mg Tabs (Amlodipine besylate) ..... 1 tab by mouth daily R eviewed previous routine stress results. Discussed w/ pt the choice of either Nuclear stress or left heart cath. Risks vs. benefits were discussed and pt would like to undergo left heart cath w/ possible intervention. Pt will be scheduled for left heart cath. KEVIN RICO NP follow up: H is updated medication list for this problem includes: Sm Aspirin Low Dose 81 Mg Tbec (Aspirin) ..... 1 tab by mouth daily Hydrochlorothiazide 25 Mg Tabs (Hydrochlorothiazide) ..... 1 tab by mouth daily Metoprolol Succinate 50 Mg [id number]-vhr (Metoprolol succinate) ..... 1 tab by mouth daily Amlodipine Besylate 5 Mg Tabs (Amlodipine besylate) ..... 1 tab by mouth daily Diovan 320 Mg Tabs (Valsartan) ..... 1 tab by mouth daily Orders: C ardiac Cath - CNE (*) KEVIN RICO NP follow up: H is updated medication list for this problem includes: Sm Aspirin Low Dose 81 Mg Tbec (Aspirin) ..... 1 tab by mouth daily Hydrochlorothiazide 25 Mg Tabs (Hydrochlorothiazide) ..... 1 tab by mouth daily Metoprolol Succinate 50 Mg [id number]-[id number] (Metoprolol succinate) ..... 1 tab by mouth daily Amlodipine Besylate 5 Mg Tabs (Amlodipine besylate) ..... 1 tab by mouth daily Diovan 320 Mg Tabs (Valsartan) ..... 1 tab by mouth daily KEVIN RICO NIKO follow up: H is updated medication list for this problem includes: Sm Aspirin Low Dose 81 Mg Tbec (Aspirin) ..... 1 tab by mouth daily Hydrochlorothiazide 25 Mg Tabs (Hydrochlorothiazide) ..... 1 tab by mouth daily Metoprolol Succinate 50 Mg [id number]-las (Metoprolol succinate) ..... 1 tab by mouth daily Amlodipine Besylate 5 Mg Tabs (Amlodipine besylate) ..... 1 tab by mouth daily Discussed w/ pt the choice of either Nuclear stress or left heart cath. Risks vs. benefits were discussed and pt would like to opt for left heart c ath. Pt will be scheduled for left heart cath. KEVIN RICO NIKO FOLLOW UP: H is updated medication list for this problem includes: Aspirin Low Dose 81 Mg Tbec (Aspirin) ..... 1 tab by mouth daily Metoprolol Succinate 50 Mg [id number]-glm (Metoprolol succinate) ..... 1 tab by mouth daily Amlodipine Besylate 5 Mg Tabs (Amlodipine besylate) ..... 1 tab by mouth daily BP today: 131/85 Prior BP: / () Evelyn Perla MD FOLLOW UP: H is updated medication list for this problem includes: Sm Aspirin Low Dose 81 Mg Tbec (Aspirin) ..... 1 tab by mouth daily Hydrochlorothiazide 25 Mg Tabs (Hydrochlorothiazide) ..... 1 tab by mouth daily Metoprolol Succinate 50 Mg [id number]-[id number] (Metoprolol succinate) ..... 1 tab by mouth daily Amlodipine Besylate 5 Mg Tabs (Amlodipine besylate) ..... 1 tab by mouth daily Diovan 320 Mg Tabs (Valsartan) ..... 1 tab by mouth daily Orders: Narayan GAONA ([id number]) BP today: 131/85 Prior BP: / () Evelyn Perla MD FOLLOW UP: H is updated medication list for this problem includes: Sm Aspirin Low Dose 81 Mg Tbec (Aspirin) ..... 1 tab by mouth daily Hydrochlorothiazide 25 Mg Tabs (Hydrochlorothiazide) ..... 1 tab by mouth daily Metoprolol Succinate 50 Mg [id number]-[id number] (Metoprolol succinate) ..... 1 tab by mouth daily Amlodipine Besylate 5 Mg Tabs (Amlodipine besylate) ..... 1 tab by mouth daily Diovan 320 Mg Tabs (Valsartan) ..... 1 tab by mouth daily BP today: 131/85 Evelyn Perla MD Date Name Cardiac Cath - CNE HISTORY OF PROCEDURES Procedure Date Procedure Name Provider Procedure Notes S tatus EKG Evelyn Perla MD completed EKG Evelyn Perla MD completed
--- OUTSIDE RECORDS SUMMARY | 2024-12-16 20:50 | XMS_ITS | Data Portability ---
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 Shots of cortisone worked for him previously he would like another 1 today therefore under sterile conditions I injected the patient's right knee joint in the office with 4 cc of 0.5% bupivacaine and 20 mg of Kenalog. Patient tolerated the procedure well. 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 The hardware appears to be well-maintained he does have osteoarthritic wear around the portions of the wrist that are not fused. I have advised him to avoid heavy weightlifting or repetitive motion with the wrist to help with his pain however he states he loves to work out and gets by with a wrist brace. I offered him a referral to a hand surgeon to talk about further surgical intervention however he declined for now. I have also recommended he start back up on diclofenac 75 mg b.i.d. with food he is going to do this. I will see him back in 3 months if necessary for another shot of cortisone in the knee if he needs it he voiced understanding agrees above plan call for any further problems difficulties or questions. Not available 02/19/2024 09:54:20 04/01/2024 04/01/2024 The patient has right elbow triceps tendinitis. We talked about treatment options today he was wondering about a shot of cortisone however I have told him we can not inject this area is it may weaken the tendon he does heavy workouts we do not want to risk him rupturing this area. He is going to back off on the amount of weight he does for awhile continue with stretching icing when necessary. He is taking diclofenac currently he will stop that for short course and we will prescribe a course of oral prednisone. We will give it a month or 2 see how he does if his symptoms continue to be significant an MRI scan may be indicated. I am going to see him back in a month for his knee we can talk about his elbow again at that time. He voiced understanding agrees above plan he will call for any further problems difficulties or questions. 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 We talked about treatment options today in detail he wanted proceed with cortisone this has worked well for him in the past his last shot was 3 months ago. Under sterile conditions I injected the patient's right knee joint in the office with for cc 0.5% bupivacaine and 20 mg of Kenalog. Patient tolerated procedure well. I will see him back as necessary we can do that again in 3 months if needed he voiced understanding and agrees with the above plan he will call for any further problems difficulties or questions. 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 We talked about treatment options today we spent a lot of time talking about knee arthroplasty, we went through knee arthroplasty options in detail including risks benefits limitations alternatives and the procedure options and what those entail, as well as the recovery time and what is involved in that. There is a slight chance he could get by with a uni-arthroplasty of the knee but it does appear he has some significant changes in the patellofemoral articulation as well likely would need a total knee arthroplasty. He wanted to see someone who does the uni-arthroplastie s just in case this might be an option for him we will have him see Dr. Holloway for consultation to discuss his surgical options. In the meantime today he did want to try to get some pain relief as it will be a few months before he could potentially get in for his surgical procedure. Therefore under sterile conditions I injected the patient's right knee joint at his request with 4 cc of 0.5% bupivacaine and 20 mg of Kenalog. Patient tolerated the procedure well. He was given the information to set up his appointment to see the surgeon. He voiced understanding agrees above plan call for any further problems difficulties or questions. Not available 08/05/2024 09:40:27 Plan of Treatment Reminders Order Date Submit Date Provider Last Modified By Organization Details Last Modified Time Details Appointments None recorded. Lab HbA1c (hemoglobin A1c), blood 2023 024 [email or web address] 2 [employer] [facility], [facility] Andre Ricci, [address] , [place], [address], 08:16:38 Referral None recorded. Procedures injection/a spiration joint/bursa (PROC) 2023 024 [email or web address] In-Office Order, Internal Use Only DO Not Attach Compendium DO Not Attach Compendium, Do Not Delete/merge, [id number] 09:02:39 injection/a spiration joint/bursa (PROC) 2023 024 [email or web address] In-Office Order, Internal Use Only DO Not Attach Compendium DO Not Attach Compendium, Do Not Delete/merge, [id number] 14:02:38 injection/a spiration joint/bursa (PROC) 2023 024 [email or web address] In-Office Order, Internal Use Only DO Not Attach Compendium DO Not Attach Compendium, Do Not Delete/merge, [id number] 09:25:03 Surgeries None recorded. Imaging XR, knee 2023 024 [email or web address] [facility] [place], [address], [place], [address], 4 11:20:57 XR, wrist 2023 024 [email or web address] [facility] [place], [address], [place], [address], 4 11:20:57 Medication Orders bupivacaine HCl 0.5 % (5 mg/mL) injection solution 2023 024 [email or web address] [address] [facility] #03489, [address] [facility] [address] [place] [address], [id number], 4 09:41:12 Kenalog 10 mg/mL suspension for injection 2023 024 [place] [address] [facility] #11741, [address] [place] [address], [id number], 4 09:41:12 bupivacaine HCl 0.5 % (5 mg/mL) injection solution 2023 024 [place] [address] [facility] #30190, [address] [facility] [address] [place] [address], [id number], 4 15:00:22 Kenalog 10 mg/mL suspension for injection 2023 024 [place] [address] [facility] #02369, [address] [place] [address], [id number], 4 15:00:22 prednisone 10 mg tablets in a dose pack 2023 024 [place] [address] [facility] #53672, [address] [address] [place] [address], [id number], 4 11:13:53 amlodipine 5 mg tablet 2023 024 [facility] #34393, [address] [facility], [place], [place], [id number], 4 16:10:18 hydrochloro thiazide 25 mg tablet 2023 024 [facility] #04428, [address] [place] [address], [id number], 4 16:10:15 lisinopril 40 mg tablet 2023 024 [email or web address] [address] [facility] #07754, [address] [facility], [place], [place], [id number], 4 19:44:05 bupivacaine HCl 0.5 % (5 mg/mL) injection solution 2023 024 [email or web address] [facility] #53873, [address] [place] [address], [id number], 4 11:20:57 Kenalog 10 mg/mL suspension for injection 2023 024 [email or web address] [facility] #65663, [address] [place] [address], [id number], 4 11:20:57 Patient TargetsNo targets recorded. Patient Instructions Encounter Date Encounter Id Patient Instructions Last Modified By Organization Details Last Modified Time 03/02/2024 [id number] recheck BP here free in 7 days [email or web address] Not available 03/18/2024 20:14:15 Reason for Referral None Reported. Results Created Date Observation Date Name Description Value Unit Range Abnormal Flag Note LastModifiedBy Organization Detail LastModifiedTime 03/02/20 24 03/03/2024 HEMOG LOBIN A1C hemoglobin A1C 6.1 %_of_ total _HGB <5.7 high For someo ne witho ut known diabe iban, a hemog lobin A1c value betwe en 5.7% and 6.4% is consi stent with predi abete s and shoul d be confi rmed with a follo w-up test. For someo ne with known diabe iban, a value <7% indic ates that their diabe iban is well contr olled . A1c targe ts shoul d be indiv idual ized based on durat ion of diabe iban, age, comor bid condi tions , and other consi derat ions. This assay resul t is consi stent with an incre ased risk of diabe iban. Curre ntly, no conse nsus exist s regar trip use of hemog lobin A1c for diagn osis of diabe iban for child rosio. This test was perfo rmed on the [employer] kierra c503 platf orm. Effec tive , a sanchez persaud in test platf orms from the [employer] to the [employer] kierra c503 may have shift ed HbA1c resul ts montserrat red to histo rical resul ts. Based on labor atory valid ation testi ng condu cted at [employer] , the [employer] platf orm relat yumiko to the [employer] platf orm had an avera ge incre ase in HbA1c value of < or = 0.3%. This diffe rence is withi n accep mason varia bilit y estab lishe d by the [facility] hemog lobin [facility] at[facility] Pro[facility] am. Note that not all indiv idual s will have had a shift in their resul ts and direc t montserrat rison s betwe en histo rical and curre nt resul ts for testi ng condu cted on diffe rent platf orms is not recom riley d. Not Available [facility] [address], [place], [address], 03/03/2024 01:17:29 02/19/20 24 XR, knee No observ ation record ed. [email or web address] [facility] [place] [address] [address], [place], [address], 02/19/2024 09:55:17 02/19/20 24 XR, wrist No observ ation record ed. [email or web address] [facility] [place] [address], [place], [address], 02/19/2024 09:56:48 Result Notes None recorded. Problems Name Problem SNOMED Code Status Onset Date Resolution Date Notes Provider Name and Address Organization Details Recorded Time Testostero ne level below reference range 838850821 Active Not Available [facility] 3 06:59:11 Acute sinusitis 57325781 Active Not Available [facility] 3 06:59:11 Wrist joint pain 543535876 Active Not Available [facility] 3 06:59:11 Sacroiliac disorder 155355631 Active Not Available [facility] 3 06:59:11 Plantar fasciitis 422766892 Active Not Available [facility] 3 06:59:11 Undifferen tiated attention deficit disorder 84862912 Active Not Available [facility] 3 06:59:11 Gastroesop hageal reflux disease 981750049 Active Not Available [facility] 3 06:59:11 Headache 58607196 Active Not Available [facility] 3 06:59:11 Uric acid renal calculus 844380778 Active Not Available [facility] 3 06:59:11 Low back pain 092564373 Active Not Available [facility] 3 06:59:11 Chest pain 44857045 Active Not Available [facility] 3 06:59:11 Otitis externa 6119947 Active Not Available [facility] 3 06:59:11 Hypertensi ve disorder 75304419 Active Not Available [facility] 3 06:59:11 Sleep disorder 31154819 Active Not Available [facility] 3 06:59:11 Obesity 739837387 Active Not Available [facility] 3 06:59:11 Anxiety 91455240 Active Not Available [facility] 3 06:59:11 Upper respirator y infection 56122616 Active Not Available [facility] 3 06:59:12 Hyperlipid emia 05447766 Active Not Available [facility] 3 06:59:12 Essential hypertensi on 62662740 Active Not Available [facility] 3 06:59:12 Bacterial overgrowth syndrome 06744650 Active Not Available [facility] 3 06:59:12 Hyperglyce steve 71536316 Active Not Available [facility] 3 06:59:12 Tinea corporis 81548223 Active Not Available [facility] 3 06:59:12 Kidney stone 83377901 Active Not Available [facility] 3 06:59:12 Pain of right knee joint 5088567499664 00 Active 2022 Not Available [facility] 3 06:59:11 Type 2 diabetes mellitus without complicati on 233517589 Active 2022 Not Available [facility] 3 06:59:11 Erectile dysfunctio n 598343046 Active 2022 Not Available [facility] 3 06:59:12 Nausea 131280472 Active 2022 Not Available [facility] 3 06:59:11 High hemoglobin A1c level 972934005 Active 2022 Not Available [facility] 3 06:59:11 Osteoarthr itis of right knee joint 3184643926207 00 Active 2022 Not Available [facility] 3 06:59:11 Acid reflux 309736844 Active 2022 Not Available [facility] 3 06:59:12 Bradycardi a 00522475 Active 2022 Not Available [facility] 3 06:59:12 Overweight 551064045 Active 2022 Not Available [facility] 3 06:59:11 Pain of right elbow joint 9503358531742 9109 Active 2023 Domi Ramirez RN null, [place] [facility] 4 10:10:48 Pain of right shoulder region Active [address]23 [address] [place] [address], [facility] [address], [place], [address] , [facility] 4 16:17:23 Lateral epicondyli tis of right humerus 5781523842493 07 Active 2023 AUDIE Austin [address], [place], [address] , [facility] 4 15:30:42 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 4 09:22:23 Osteoarthr itis of joint of right wrist 9227165714022 02 Active 2023 AUDIE Austin [address], [place], [address] , [facility] 4 09:57:05 Triceps tendinitis 196824999 Active 2023 AUDIE Austin [address], [place], [address] , [facility] 4 09:59:24 Labyrinthi tis 82298175 Active 2023 AUDIE Joe [address], [place], [address] , [facility] 4 11:53:04 Arthritis 3252337 Active 2023 REDD Gold, [facility] 4 14:10:58 Problem Notes None recorded. Procedures Surgical History Date Name Laterality Status Provider Name and Address Organization Details Recorded Time Meniscal trnspl knee w/scpe completed Not Available [facility] 11/20/2022 07:26:14 Hand completed Not Available [facility] 09/2022 07:26:14 Imaging Results Imaging Date Name Status LastModified by Organiz ation Details LastModified Time 02/19/2024 XR, knee completed [email or web address] [facility] [place] [address], [place], [address], 02/19/2024 09:55:17 02/19/2024 XR, wrist completed [email or web address] [facility] [place] [address], [place], [address], 02/19/2024 09:56:48 Procedure Notes None recorded. Medical Equipment None Reported. Allergies Allergen ID Allergen Name Allergen Category Reaction Reaction Severity Criticality Documentation Date Start Date Code Code System Note Provider Name and Address Organization Details Recorded Time 74147 Prozac medicatio n Not available Not available Not available 11/20/2022 76500 RxNorm Not Available [facility] 3 07:36:31 08674 Lexapro medicatio n Not available Not available Not available 11/20/2022 94696 1 RxNorm mood probl ems RAVIN [place], [place] [facility] 4 09:18:19 Medications Name Sig Start Date Stop Date Status Note LastModified by Organization Details LastModified Time Prescriptio n - Prior Authorizati on Request 03/05 completed Not Available Not Available Not Available cyclobenzap rine 10 mg tablet TAKE 1 TABLET BY MOUTH AT BEDTIME NEEDED. 02/18 completed Not Available Not Available Not Available prednisone 10 mg tablet active Not Available Not Available Not Available trazodone 50 mg tablet TK 1 T PO QD HS 03/11 completed Not Available Not Available Not Available sildenafil 50 mg tablet Take 1 tablet every day by oral route. 08/06 completed Not Available Not Available Not Available azithromyci n 250 mg tablet TAKE 2 TABLETS BY MOUTH FOR 1 DAY THEN TAKE 1 TABLET BY MOUTH DAILY FOR 4 DAYS active Not Available Not Available No t Available pravastatin 40 mg tablet Take 1 tablet by mouth once daily 03/20 completed Not Available Not Available Not Available metoprolol succinate ER 50 mg tablet,exte nded release 24 hr TK 1 T PO QD 02/02 completed Not Available Not Available Not Available hydrocodone 5 mg-acetamin ophen 325 mg tablet TAKE 1 TABLET BY MOUTH EVERY 6 HOURS NEEDED FOR PAIN 01/24 completed Not Available Not Available Not Available prazosin 1 mg capsule active Not Available Not Available N ot Available lisinopril 20 mg tablet TAKE 1 TABLET BY MOUTH DAILY active Not Available Not Available No t Available bupivacaine HCl 0.5 % (5 mg/mL) injection solution Take 20 mg by injection route. 2023 active Not Available Not Available Not Avai lable meclizine 12.5 mg tablet Take 1 tablet 3 times a day by oral route as needed for 30 days. 2023 active Not Available Not Available Not Avai lable phentermine 37.5 mg tablet TAKE 1 AND 1/2 TABLETS BY MOUTH EVERY DAY IN THE MORNING active Not Available Not Available No t Available amlodipine 5 mg tablet Take 1 tablet by mouth once daily 2023 active Not Available Not Available Not Avai lable ciprofloxac in 500 mg tablet active Not Available Not Available Not Available sulfamethox azole 800 mg-trimetho prim 160 mg tablet TAKE 1 TABLET BY MOUTH TWICE DAILY 01/24 completed Not Available Not Available Not Available hydrocodone 10 mg-acetamin ophen 325 mg tablet TAKE ONE TO TWO TABLETS BY MOUTH EVERY 4 TO 6 HOURS NEEDED active Not Available Not Available No t Available fenofibrate micronized 200 mg capsule TAKE 1 CAPSULE BY MOUTH EVERY DAY IN THE MORNING active Not Available Not Available No t Available tramadol 50 mg tablet TAKE 1 TABLET BY MOUTH EVERY 6 HOURS NEEDED 11/25 completed Not Available Not Available Not Available sildenafil 100 mg tablet TAKE 1 TABLET BY MOUTH DAILY NEEDED active Not Available Not Available No t Available ketorolac 10 mg tablet TAKE 1 TABLET BY MOUTH EVERY 6 HOURS NEEDED FOR PAIN 01/24 completed Not Available Not Available Not Available prednisone 10 mg tablets in a dose pack Take 1 tab by mouth, 3 times a day for 3 daysTake 1 tab by mouth 2 times a day for 2 daysTake 1 tab by mouth once a day for 1 day 2023 active Not Available Not Available Not Avai lable pravastatin 80 mg tablet Take 1 tablet(s) every day by oral route. active Not Available Not Available No t Available tamsulosin 0.4 mg capsule TAKE 1 CAPSULE BY MOUTH ONCE DAILY 30 min after dinner 01/26 completed Not Available Not Available Not Available trazodone 100 mg tablet TAKE 2 TABLETS BY MOUTH EVERY DAY AT BEDTIME 2023 active Not Available Not Available Not Avai lable Kenalog 10 mg/mL suspension for injection Take 20 mg by injection route. 2023 active [facility]: [phone]- [phone] Not Available Not Available Not Available meclizine 25 mg tablet TAKE 1 TABLET BY MOUTH THREE TIMES DAILY 01/29 completed Not Available Not Available Not Available oseltamivir 75 mg capsule Take 1 capsule every day by oral route for 10 days. active Not Available Not Available No t Available clotrimazol e-betametha sone 1 %-0.05 % topical cream APPLY TO THE AFFECTED AND SURROUNDI NG AREAS OF SKIN BY TOPICAL ROUTE 2 TIMES PER DAY IN THE MORNING AND EVENING FOR 2 WEEKS active Not Available Not Available No t Available lidocaine 5 % topical patch Apply by topical route for 30 days. 01/24 completed Not Available Not Available Not Available omeprazole 20 mg capsule,del ayed release TAKE 1 CAPSULE BY MOUTH EVERY DAY active Not Available Not Available No t Available diclofenac sodium 75 mg tablet,mayela yed release TAKE 1 TABLET BY MOUTH TWICE DAILY WITH FOOD 2023 active Not Available Not Available Not Avai lable hydrocodone 5 mg-acetamin ophen 500 mg tablet Take 1-2 TABLET EVERY 4-[address] oral rout prn. active Not Available Not Available No t Available hydrochloro thiazide 25 mg tablet TAKE 1 TABLET BY MOUTH DAILY active Not Available Not Available No t Available diazepam 10 mg tablet TAKE 1 TABLET BY MOUTH TWICE DAILY NEEDED active Not Available Not Available No t Available Cipro HC 0.2 %-1 % ear drops,suspe nsion INSTILL 3 DROPS INTO AFFECTED EARS Q 12 H active Not Available Not Available No t Available oxycodone-a cetaminophe n 7.5 mg-325 mg tablet Take 1 tablet every 4-6 hours by oral route as needed for pain. active Not Available Not Available No t Available zolpidem 10 mg tablet Take 1 tablet every day by oral route for 30 days. active Not Available Not Available No t Available lisinopril 40 mg tablet TAKE 1 TABLET BY MOUTH EVERY DAY IN THE MORNING FOR 90 DAYS active Not Available Not Available No t Available ondansetron 4 mg disintegrat ing tablet PLACE 1 TABLET 3 TIMES A DAY BY TRANSLING UAL ROUTE NEEDED FOR 30 DAYS. 01/26 completed Not Available Not Available Not Available diazepam 5 mg tablet active Not Available Not Available No t Available Asprin Ec Low Dose 81 mg tablet,mayela yed release Take 1 tablet every day by oral route. 2012 active Not Available Not Available Not Avai lable bupropion HCl XL 150 mg 24 hr tablet, extended release active Not Available Not Available Not Available Cialis 20 mg tablet TAKE 1 TABLET BY MOUTH A 1/2 HOUR BEFORE INTERCOUR SE 08/06 completed Not Available Not Available Not Available sildenafil (pulmonary hypertensio n) 20 mg tablet TAKE 1 TABLET BY MOUTH ONCE DAILY NEEDED 09/25 completed Not Available Not Available Not Available multivitami n 04/25 completed Not Available Not Available Not Available ketorolac 30 mg/mL injection solution Inject 1 mL every 6 hours by intraveno us route. active [facility]# [id number] [phone]- 01 Not Available Not Available Not Available Suprep Bowel Prep Kit 17.5 gram-3.13 gram-1.6 gram oral solution USE DIRECTED 09/10 completed Not Available Not Available Not Available Androderm 4 mg/24 hr transdermal 24 hour patch active Not Available Not Available Not Available OneTouch Verio test strips USE TO CHECK BLOOD SUGARS TWICE DAILY 02/18 completed Not Available Not Available Not Available Virtussin AC 10 mg-100 mg/5 mL oral liquid Take 10 mL every 4 hours by oral route. active Not Available Not Available No t Available ID NOW COVID-19 Test Kit TEST DIRECTED TODAY 01/24 completed Not Available Not Available Not Available Wegovy 0.25 mg/0.5 mL subcutaneou s pen injector INJECT 0.25 MG EVERY WEEK BY SUBCUTANE OUS ROUTE. 02/28 completed Not Available Not Available Not Available Wegovy 0.5 mg/0.5 mL subcutaneou s pen injector Inject 0.5 mg every week by subcutane ous route. 02/28 completed Not Available Not Available Not Available Ozempic 0.25 mg or 0.5 mg (2 mg/3 mL) subcutaneou s pen injector Inject 0.5 mg every week by subcutane ous route. 02/28 completed Not Available Not Available Not Available Vitals Date Recorded Body height Body mass index (BMI) Body weight Provider Name and Address Organization Details Last Updated DateTime 02/19/2024 182.88 cm 29.8 kg/m2 04185.32 g Heide Rodriguez [facility] [employer] [facility] 02/19/2024 09:17:37 Date Recorded Body height Body mass index (BMI) Body weight Body temperature Heart rate Oxygen saturation Oxygen saturation in Arterial blood by Pulse oximetry Respiratory rate Systolic blood pressure Diastolic blood pressure Provider Name and Address Organization Details Last Updated DateTime 182.88 cm 29.3 kg/m2 06048.9 5 g 98.3 [degF] 85 /min 95 % 95 % 16 /min 150 mm[Hg] 90 mm[Hg] Denise Perea RN [facility] 15:51:27 Date Recorded Body height Body mass index (BMI) Body weight Provider Name and Address Organization Details Last Updated DateTime 04/01/2024 182.88 cm 29.2 kg/m2 97630.36 g ROBIN Subramanian [facility] [employer] [facility] 04/01/2024 09:34:10 Date Recorded Body height Body mass index (BMI) Body weight Pain severity - 0-10 verbal numeric rating [Score] - Reported Provider Name and Address Organization Details Last Updated DateTime 05/21/2024 182.88 cm 30.5 kg/m2 357723.28 g REDD Flores [facility] [employer] [facility] 05/21/2024 13:46:54 Date Recorded Body height Body mass index (BMI) Body weight Provider Name and Address Organization Details Last Updated DateTime 08/05/2024 182.88 cm 29.8 kg/m2 62494.32 g Heide Rodriguez CNA [place] [facility] [employer] [facility] 08/05/2024 09:00:42 Social History Question Answer Notes LastModified by Organizat ion Details LastModified Time Tobacco Smoking Status Former Smoker 1.5 ppd Not Available [facility] 11/20/2022 07:26:00 What Is Your Level Of Alcohol Consumption? Occasional [id number] Information not available 11/20/2022 What Is Your Level Of Caffeine Consumption? Moderate [id number] Information not available 11/20/2022 In The 14 Days Before Symptom Onset, Have You Had Close Contact With A Laboratory-confir med COVID-19 While That Case Was Ill? No MIGRATION.[id number] Information not available 11/20/2022 In The 14 Days Before Symptom Onset, Have You Had Close Contact With A Person Who Is Under Investigation For COVID-19 While That Person Was Ill? No MIGRATION.26634 [id number] Information not available 11/20/2022 What Type Of Diet Are You Following? REGULAR High Protein MIGRATION.[id number] Information not available 11/20/2022 When Did You Quit Smoking? 16+yearssince lastcigarette 25 Yrs Ago [email or web address] Information not available 02/19/2024 At What Age Did You Start Smoking Tobacco? 10 MIGRATION.54470 [id number] Information not available 11/20/2022 Do You Feel Stressed (tense, Restless, Nervous, Or Anxious, Or Unable To Sleep At Night)? [email or web address] Information not available 02/25/2023 Do You Use Any Illicit Or Recreational Drugs? No MIGRATION.31365 87827 Information not available 11/20/2022 How Many Years Have You Smoked Tobacco? 11 MIGRATION.02382 41013 Information not available 11/20/2022 Have You Recently Traveled Abroad? No MIGRATION.01612 24612 Information not available 11/20/2022 How Many Days In The Past Year Have You Consumed 5 Or More Drinks? 0 MIGRATION.15391 04597 Information not available 11/20/2022 Sex: Unknown Functional Status Question Answer Note LastModified by Organizat ion Details LastModified Time What is your exercise level? Heavy [id number] Information not available 11/20/2022 Mental Status None recorded. Family History Relationship Description Onset Age of this Age Resolved Age Notes LastModified by Organization Details LastModified Time Brother Hypertensive disorder [id number] [id number] Not available 11/20/2022 07:26:16 Brother Hypertensive disorder MIGRATION.214 [id number] Not available 11/20/2022 07:26:16 Brother Hypertensive disorder MIGRATION.553 [id number] Not available 11/20/2022 07:26:16 Brother Hypercholest erolemia MIGRATION.124 [id number] Not available 11/20/2022 07:26:16 Brother Hypercholest erolemia MIGRATION.903 [id number] Not available 11/20/2022 07:26:16 Brother Hypercholest erolemia MIGRATION.973 [id number] Not available 11/20/2022 07:26:16 Brother Intracranial aneurysm MIGRATION.611 [id number] Not available 11/20/2022 07:26:16 Father Hypertensive disorder MIGRATION.815 [id number] Not available 11/20/2022 07:26:16 Father Hypercholest erolemia MIGRATION.319 [id number] Not available 11/20/2022 07:26:16 Father Family history of stroke MIGRATION.162 [id number] Not available 11/20/2022 07:26:16 Sister Hypertensive disorder MIGRATION.499 [id number] Not available 11/20/2022 07:26:16 Sister Hypercholest erolemia MIGRATION.116 [id number] Not available 11/20/2022 07:26:16 Paternal Aunt Diabetes mellitus MIGRATION.709 [id number] Not available 11/20/2022 07:26:16 Maternal Uncle Diabetes mellitus MIGRATION.333 [id number] Not available 11/20/2022 07:26:16 Paternal Uncle Diabetes mellitus MIGRATION.305 [id number] Not available 11/20/2022 07:26:16 Brother Heart disease [email or web address] Not available 2023 09:20:51 Mother Family history of malignant neoplasm [email or web address] Not available 2023 09:21:03 Medical History Condition Response ARTHRITIS Y DIABETES, TYPE Y HYPERTENSION Y Immunizations Vaccine Type Date Status Note Provider Nam e and Address Organization Details Recorded Time zoster recombinant 0 completed Not Available [facility] 07/09/2023 06:59:12 zoster recombinant 0 completed Not Available [facility] 07/09/2023 06:59:12 Tdap 5 completed Not Available [facility] 07/09/2023 06:59:12 Past Encounters Encounter ID Performer Location Encounter Start Date Encounter Closed Date Diagnosis/Indication Diagnosis SNOMED-CT Code Diagnosis ICD10 Code Diagnosis Note [id number] [facility] Jessica calvin [address] [facility] [place] [address] 2021 00:00:00 2021 10:38:19 [id number] [facility] [address] [place] [address] [place] [address] 07/11/2021 00:00:00 07/12/2021 08:57:51 [id number] [facility] [address] [place] [address] [place] [address] 01/31/2022 00:00:00 01/31/2022 10:10:08 [id number] Kale Suazo MD [address] [place] [address] 12/12/2022 09:32:04 12/12/2022 10:27:54 Acute sinusitis 21812267 J01.90 Pain of ri ght knee joint 2173116981 95987 M25.561 Consider PT. Essential hypertension 41759622 I10 Continue monitoring and watch salt in diet. Recheck BP 132/86 Obesity 054701461 E66.9 F/u in 1-2 months. Adult [facility] th examination 510599676 Z00.00 [facility] [place]. [id number] Kale Suazo MD [address] [place] [address] 01/24/2023 12:24:03 01/24/2023 13:14:06 Type 2 diabetes mellitus without complication 057456263 E11.9 A1C is 6.8% pamphlets given on DM. Hyperlipidemia 30391788 E78.5 May double up dose of pravastati n to 80 mg and check cholestero l in 3 months. Pain of ri ght knee joint 8893973876 56700 M25.561 [address] PT. [id number] August Holloway [facility] [place] [address] [place] [address] 01/29/2023 10:19:20 02/06/2023 15:11:27 Pain of right knee joint 9500745552 51710 M25.561 [id number] AUDIE Joe [address] [place] [address] 02/25/2023 12:18:57 02/25/2023 12:52:58 Kidney stone 98481939 N20.0 Low back pain 663094429 M54.50 Nausea 668283392 R11.0 High hemog lobin A1c level 610574992 R73.09 Essential hypertension 59592007 I10 Gastroesop hageal reflux disease 098800984 K21.9 Hyperlipidemia 84850736 E78.5 Type 2 kaila betes mellitus without complication 926484994 E11.9 [id number] AUDIE Durán [facility] [place] [address] [place] [address] 02/28/2023 10:56:12 02/28/2023 12:54:26 Osteoarthritis of right knee joint 9753069016 51366 M17.11 [id number] Kale Suazo MD [address] [place] [address] 03/26/2023 09:18:47 03/26/2023 10:22:27 Type 2 diabetes mellitus without complication 989045394 E11.9 A1C is 6.8% pamphlets given on DM. Hyperlipidemia 92873752 E78.5 [id number] Kale Suazo MD [address] [place] [address] 07/03/2023 12:19:56 07/03/2023 12:58:50 Hyperlipidemia 54708925 E78.5 Bradycardia 81386742 R00 .1 By hx. Overweight 921073861 E66 .3 Call for refills to 1 1/2 tabs daily #45 Type 2 kaila betes mellitus without complication 190884617 E11.9 A1C is 6.1% Continue watching carbs. Adult heal th examination 907889458 Z00.00 Pending lab work results. [id number] AUDIE Austin [facility] [place] [address] [place] [address] 10/07/2023 14:49:53 10/07/2023 15:26:47 Pain of right elbow joint 5985287701 8512722 M25.521 Lateral ep icondylitis of right humerus 8577854833 43839 M77.11 [id number] AUDIE Austin [facility] [place] [address] [place] [address] 11/20/2023 09:17:52 11/20/2023 09:43:17 Osteoarthritis of right knee joint 3119101659 90581 M17.11 Pain of ri ght elbow joint 2104812921 5379225 M25.521 Pain of ri ght knee joint 7326334383 05961 M25.561 Lateral ep icondylitis of right humerus 6342474440 29119 M77.11 Osteochond ritis dissecans of the medial femoral condyle 312606759 M93.728 [id number] AUDIE Joe [facility] Jessica hung [id number] [facility] [address] 01/27/2024 08:50:53 01/27/2024 09:23:33 Type 2 diabetes mellitus without complication 419004009 E11.9 Overweight 442205949 E66 .3 Essential hypertension 49568580 I10 Anxiety 76294387 F41.9 Gastroesop hageal reflux disease 299306521 K21.9 Hyperlipidemia 26596628 E78.5 Lateral ep icondylitis of right humerus 0137678799 41430 M77.11 Osteoarthr itis of right knee joint 6077702584 05633 M17.11 Osteochond ritis dissecans of the medial femoral condyle 276409779 M93.410 [id number] AUDIE Austin [facility] [place] [address] [place] [address] 02/19/2024 08:59:55 02/19/2024 10:08:15 Osteoarthritis of right knee joint 3959314961 13491 M17.11 Pain of ri ght knee joint 5288107127 57105 M25.561 Osteochond ritis dissecans of the medial femoral condyle 518627896 M93.261 Pain of right wrist 3169 388775 59860 M25.531 Osteoarthr itis of joint of right wrist 0372408442 06693 M19.349 [id number] AUDIE Joe [facility] Jessica calvin [address] [facility] [place] [address] 03/02/2024 15:30:45 03/02/2024 16:29:27 Essential hypertension 62237524 I10 High hemog lobin A1c level 133171449 R73.09 Anxiety 71914565 F41.9 Gastroesop hageal reflux disease 150394244 K21.9 Hyperlipidemia 45771764 E78.5 Low back pain 379084864 M54.50 Type 2 kaila betes mellitus without complication 615714815 E11.9 Overweight 810382409 E66 .3 [id number] AUDIE Austin [facility] [place] [address] [place] [address] 04/01/2024 09:30:26 04/01/2024 10:22:17 Pain of right elbow joint 8025653299 7523176 M25.521 Triceps tendinitis 79408 7003 M67.88 right elbow [id number] AUDIE Austin [facility] [place] [address] [place] [address] 05/21/2024 13:43:51 05/21/2024 14:37:23 Pain of right knee joint 5359760430 98740 M25.561 Osteoarthr itis of right knee joint 4339343395 99816 M17.11 Osteochond ritis dissecans of the medial femoral condyle 607473239 M93.261 Pain of right wrist 3169 288457 32140 M25.531 Osteoarthr itis of joint of right wrist 4236622816 33706 M19.629 [id number] AUDIE Austin [facility] [place] [address] [place] [address] 08/05/2024 08:58:13 08/05/2024 11:00:04 Osteochondritis dissecans of the medial femoral condyle 244621126 M93.261 Osteoarthr itis of right knee joint 8893400102 75379 M17.11 Pain of ri ght knee joint 0996387889 51007 M25.561 Health Concerns Section Related Observation LastModified by Organization Detai ls LastModified Time None Recorded Concern Status LastModified by Organization Details LastModified Time None Recorded Advance Directives Directive None Recorded Payers Encounter Date Sequence Insurance Name Policy Number Policy Rico Covered Member ID Rico Member ID Guarantor Name 02/19/2024 1 [place] [id number] [place] [id number] Radames C Newell 03/02/2024 1 [place] [id number] [place] B [place] [id number] Radames C Newell 04/01/2024 1 [place] [id number] [place] B [place] [id number] Radames C [place]ell 05/21/2024 1 [place] [id number] [place] B [place] [id number] Radames C Newell 08/05/2024 1 [place] [id number] [place] B [place] [id number] Radames C Newell Notes Date Note Type Note Provider Name and Address Organization Details Recorded Time 02/19/2024 text/html patient returns with right knee pain and a new problem with his right wrist as well. The wrist problem is actually chronic in nature many years ago he had a fusion of the carpal joints of the wrist he has a lot of pain with certain motions of the wrist. 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 not only due to the fact that his wrist is stiff from the previous fusion but also because of the pain. He does wear wrist brace for support when he is doing heavy weights otherwise denies any new trauma or injury. Has some tenderness at the radiocarpal joint region otherwise no deformity he does have a little bit of flexion extension in the radial carpal joint. He has not had a full wrist fusion. 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 He comes in today requesting x-rays and to talk about his wrist pain. 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 A shot of cortisone 3 months ago gave him excellent relief he would like another shot there today as well. Denies any new problems with his right knee. New past medical history sheet was reviewed and signed on the intake sheet of today's date drug allergies current medications family social history previous surgical history 10 point review of systems was reviewed and discussed in detail today with the patient. The patient has taken diclofenac previously although he has not taking it now. AUDIE Austin [address], [place], [address], [employer] 02/19/2024 09:58:04 03/02/2024 text/html AUDIE Alvarez [address], [place], [address], [employer] 03/18/2024 20:14:25 04/01/2024 text/html patient returns with right elbow pain this time in a different location. He did have lateral epicondylitis of the right humerus cortisone injection to care that previously. He is now complaining of triceps pain. 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 He works out on his own +with other people training them and this has started to aggravate his posterior elbow. He points to the distal triceps region denies any specific trauma or injury sounds like an overuse type injury however. He can pinpoint the spot with 1 finger in the distal triceps region not yet at the olecranon attachment. There is no effusion or swelling he denies any weakness no numbness or tingling. He has full range of motion of his elbow and no pain over the lateral epicondylar region anymore after previous treatment. He comes in today to talk about treatment options for his triceps tendinitis.Recent previous x-rays were reviewed today in detail today with the patient he has no osteoarthritis of the elbow joint no spurring off the olecranon joint space is well-maintained no chronic bony abnormalities noted. AUDIE Austin [address], [place], [address], [employer] [facility] 04/01/2024 10:00:46 05/21/2024 text/html patient returns for his right knee. 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 Shot of cortisone has worked well for him in the past he had 1 3 months ago although recently he did 6-7 miles of walking in today for his job this has aggravated his symptoms. Denies any new problems with the knee no effusion or swelling no erythema heat or other signs of infection no mechanical symptoms he has a mild varus deformity with crepitation aching pain that limits his activities he states the pain is about a 5 on a scale of 1-10 he would like to repeat a shot of cortisone today. AUDIE Austin [address], [place], [address], [employer] 05/21/2024 14:12:41 08/05/2024 text/html Patient returns with right knee pain. He states he is getting to the point where he is about done with conservative measures he has pain anywhere from a 7 to a 10 on a scale of 1-10 most days. Almost anything he does aggravates his symptoms. He has previous x-rays which shows significant narrowing in the medial compartment and has an OCD lesion of the medial femoral condyle with near iczs-hu-whdo changes in the medial compartment. He has coexisting primary osteoarthritis medially and in the patellofemoral articulation with small marginal osteophytes. He is quite active walks his dog every day for several miles and likes to workout. He is getting to the point where he is miserable all the time he comes in today to talk about treatment options from here. His pain is mostly localized medially, he has gotten some relief from previous cortisone injections but lately not so much. We have also tried gel shots activity modification and oral anti-inflammatories currently is on diclofenac 75 mg b.i.d.. AUDIE Austin [address], [place], [address], [employer] [facility] 08/05/2024 09:40:40
--- NOTE | 2024-12-16 20:51 | ED.MALEGU ---
HPI - Male Genitourinary General Chief complaint: Urogenital-Male Stated complaint: flank pain Time Seen by Provider: 12/16/24 20:50 Source: patient and family Mode of arrival: ambulatory Limitations: no limitations History of Present Illness HPI Narrative: Patient presents with sudden-onset right flank pain radiating into abdomen/right groin. This started 2 hours prior to arrival. He has a history of kidney stones that have required with stent and lithotripsy. He denies any fevers or chills. No dysuria, hematuria, urgency or frequency. He has been nauseated and dry heaving. He took 10 mg neb Valium at 6:30 p.m.. No allergies to analgesic medication. Related Data Home Medications ?Medication ?Instructions ?Recorded ?Confirmed ?Last Taken ?Type amlodipine 10 mg tablet 10 mg PO DAILY 03/20/20 05/10/22 05/09/22 History diazepam 10 mg tablet 20 mg PO HS 03/20/20 05/10/22 05/09/22 History fenofibrate 50 mg capsule 50 mg PO DAILY 03/20/20 05/10/22 05/09/22 History hydrochlorothiazide 12.5 mg tablet 12.5 mg PO DAILY 03/20/20 05/10/22 05/09/22 History omeprazole 20 mg capsule,delayed 20 mg PO DAILY 03/20/20 05/10/22 05/09/22 History release phentermine 37.5 mg capsule 37.5 mg PO DAILY 03/20/20 05/10/22 05/09/22 History trazodone 100 mg tablet 200 mg PO HS PRN insomnia 03/20/20 05/10/22 05/09/22 History omega 9-bhb-gvh-fish oil 1,000 mg 1 cap PO DAILY 04/18/20 05/10/22 05/09/22 History (120 mg-180 mg) capsule (Fish Oil) Allergies Allergy/AdvReac Type Severity Reaction Status Date / Time escitalopram Allergy Intermediate altered Verified 12/16/24 20:49 mood changes [facility] Past Medical History Medical History (Updated 12/16/24 @ 22:38 by Anisa Tiwari MD) Left ureteral stone April 2022 Anxiety Medial meniscus tear Fusion of carpal bone, congenital HTN (hypertension) HLD (hyperlipidemia) Vision abnormalities Right knee pain Depression Surgical History Surgical History H/O ureteroscopy 05/10/2022; left; Dr Mei H/O cystoscopy 05/10/22; Dr Mei Family History Family History Unknown Cardiovascular disease Diabetes mellitus Hypertension Cancer Nerve disorder Arthritis Social History Social History Smoking packs per day: 1 Smoking cigarettes per day: 20.0 Years smoked: 20 Smoking pack-years: 20.00 Smoking status: Former smoker Tobacco type: cigarettes Smoking end date: 05/09/02 Additional smoking assessment comments: QUIT 20 YEARS AGO Alcohol intake: current Drinks per week: 3 Alcohol use details: RARE Substance use: former Substance use type: marijuana Other substance usage details: MULTIPLE DRUGS 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 Restless, pacing in room and standing over stretcher grabbing railing. HEAD: Normocephalic, atraumatic. EYES: Non injected, non icteric ENT: Nares clear, no rhinorrhea or epistaxis. NECK: Supple. CHEST: Speaking in full sentences. No respiratory distress. HEART: Regular rate and rhythm. . ABDOMEN: Soft, nondistended. EXTREMITIES: Normal range of motion. No lower extremity edema. SKIN: Warm, dry, no rash. NEURO: No focal deficits. Alert and oriented x3. PSYCH: Normal mood and affect. Course Vital Signs Vital signs: Vital Signs Temperature 98.3 F 12/16/24 20:52 Pulse Rate 76 12/16/24 20:52 Respiratory Rate 18 12/16/24 20:52 Blood Pressure 177/92 H 12/16/24 20:52 Pulse Oximetry 97 12/16/24 20:52 Oxygen Delivery Room Air 12/16/24 20:52 Temperature 98.3 F 12/16/24 20:52 Pulse Rate 68 12/16/24 21:57 Respiratory Rate 17 12/16/24 21:57 Blood Pressure 167/93 H 12/16/24 21:57 Pulse Oximetry 92 12/16/24 22:00 Oxygen Delivery Room Air 12/16/24 20:52 MDM - Male Genitourinary MDM Narrative Medical decision making narrative: Patient presents with sudden-onset right flank pain radiating to low abdomen and right groin that started 2 hours prior to arrival. He has a history of kidney stones with history of stent and lithotripsy. Denies any urinary symptoms or fevers or chills. He is having nausea. In the emergency department he is afebrile with vital signs notable for hypertension. His urologist appears to be Sigifredo per review of the EMR. Dilaudid and ondansetron ordered. Patient still complaining of pain. Another order of Dilaudid. Hematuria on urinalysis but otherwise without infectious signs. Patient has remained hemodynamically stable with appropriate (although hypertensive) vital signs. Patient informed of CT findings at 10:35 p.m. and he states his pain had been 10/10 severity is now 0/10 after 2nd dose of Dilaudid. Within 15 minutes, RN reassess patient and his pain has returned. Fentanyl ordered. Discussed with extrusion supervisor urologist who recommends NPO at midnight, straining all urine, admitting to the hospitalist with p.r.n. pain control and they will assess in the morning for consideration of intervention. Discussed this with the patient and his . Patient's is apprised as she notes that previously he has always been able to be discharged home. We discussed the fact that patient is having issues controlling his pain and the likelihood that he would be requiring a procedure in the morning. Discussed with on-call hospitalist SCOTT Watkins. Admitted in stable condition. Differential Diagnosis Differential diagnosis: Likely urinary tract infection, urethritis, epididymitis, acute retention of urine, inguinal hernia and other (renal calculus/ureteral calculus; pyelonephritis; testicular torsion; constipation; small bowel obstruction) Lab Data Attestation: I reviewed the patient's lab results. Lab results narrative: No leukocytosis 12/16/24 21:11 12/16/24 21:11 Labs: Lab Results 12/16/24 12/16/24 Range/Units 21:11 22:18 WBC 9.1 (4.5-10.0) K/mm3 RBC 4.62 (4.6-6.20) M/mm3 Hgb 14.1 (14.0-18.0) g/dL Hct 41.0 L (42.0-52.0) % MCV 88.7 (80-100) fl MCH 30.5 (26-34) pg MCHC 34.4 (32-36) g/dl RDW 12.6 (11.5-14.5) % Plt Count 329 (150-375) k/mm3 MPV 9.3 (7.4-10.4) fl Immature Gran % (Auto) 0.2 (0-0.5) % Neut % (Auto) 48.2 (45.5-73.1) % Lymph % (Auto) 40.0 (18.3-44.2) % [place] % (Auto) 9.1 H (2.6-8.5) % Eos % (Auto) 2.1 (0-4.4) % Baso % (Auto) 0.4 (0.2-1.2) % Lymph # (Auto) 3.65 H (0.9-3.2) K/mm3 [place] # (Auto) 0.8 H (0.1-0.6) K/mm3 Eos # (Auto) 0.2 (0-0.3) K/mm3 Baso # (Auto) 0.0 (0.0-0.1) K/mm3 Abs Immat Gran (auto) 0.02 (0.00-0.031) K/mm3 Absolute Neuts (auto) 4.4 (1.3-6.7) K/mm3 Absolute Nucleated RBC 0.000 (0.0-0.012) K/mm3 Nucleated RBC % 0.0 (0.0-0.2) % PT 12.6 (11.1-14.7) Seconds INR 0.9 APTT 29.6 (22.3-36.8) Seconds Sodium 141 (137-145) mmol/L Potassium 4.1 (3.4-5.0) mmol/L Chloride 105 (98-107) mmol/L Carbon Dioxide 24 (22-30) mmol/L Anion Gap 12 (4-12) mmol/L BUN 21 H (9-20) mg/dL Creatinine 1.01 (0.7-1.3) mg/dL Estim Creat Clear Calc 77 ml/min Estimated GFR > 60 (59 - ) Glucose 117 H (65-110) mg/dL Calcium 9.9 (8.4-10.2) mg/dL Total Bilirubin 0.4 (0.2-1.3) mg/dL AST 23 (17-59) U/L ALT 24 (6-50) U/L Alkaline Phosphatase 56 (38-126) U/L Total Protein 7.0 (6.3-8.2) g/dL Albumin 4.5 (3.5-5.1) g/dL Urine Color Yellow (Yellow) Urine Appearance Cloudy H (Clear) Urine pH 7.0 (5.0-9.0) Ur Specific [place] 1.035 (1.001-1.035) Urine Protein Negative (Negative) mg/dL Urine Glucose (UA) Negative (Negative) mg/dL Urine Ketones Negative (Negative) mg/dL Ur Blood (Man) 2+ H (Negative) Urine Nitrate Negative (Negative) Urine Bilirubin Negative (Negative) Urine Urobilinogen 1.0 (<2.0) mg/dL Leukocyte Esterase Rfl Negative (Negative) JEANETTE/UL Urine RBC 21-50 H (0-2) /hpf Urine WBC 0-5 (0-3) /hpf Ur Squamous Epith Cells None seen (Few) /hpf Urine Bacteria None seen /hpf Urine Casts 0-2 Imaging Data Radiologist's impression: Impressions Abdomen/Pelvis CT 12/16/24 22:00 IMPRESSION: 1. 2 stones in the right ureter with right hydronephrotic changes. Tiny stone in the right kidney midpole. 2. No evidence of appendicitis, diverticulitis or intestinal obstruction. Discharge Plan Discharge Clinical Impression: Right ureteral calculus Patient Disposition: Still a Patient Condition: Stable Instructions: Antibiotic Form Patient Language: Wolof Prescriptions: No Action phentermine 37.5 mg capsule 37.5 mg PO DAILY Patient Comments: NEEDED Rx Instructions: must administer 30 minutes before or 1-2 hours after breakfast trazodone 100 mg tablet 200 mg PO HS PRN (Reason: insomnia) diazepam 10 mg tablet 20 mg PO HS Patient Comments: NEEDED amlodipine 10 mg tablet 10 mg PO DAILY fenofibrate 50 mg capsule 50 mg PO DAILY hydrochlorothiazide 12.5 mg tablet 12.5 mg PO DAILY omeprazole 20 mg capsule,delayed release(DR/EC) 20 mg PO DAILY omega 3-aas-hau-fish oil [Fish Oil] 1,000 mg (120 mg-180 mg) Capsule 1 cap PO DAILY Patient Comments: 2 TABS DAILY tamsulosin [Flomax] 0.4 mg capsule 0.4 mg PO DAILY Qty: 7 0RF hydrocodone-acetaminophen 5-325 mg tablet 1 tablet PO Q6H PRN (Reason: pain) Qty: 10 0RF ketorolac 10 mg tablet 10 mg PO Q6H PRN (Reason: pain) Qty: 10 0RF Follow-up/Referrals: UNKNOWN,DOCTOR [Primary Care Provider] -
[2024-12-16 20:52] VITALS: BP 177/92; PULSE 76; RESP 18; TEMP 36.8; O2SAT 97
--- OUTSIDE RECORDS SUMMARY | 2024-12-16 21:10 | XMS_ITS | CONTINUITY OF CARE DOCUMENT ---
Author Name chelle corbett Address Unknown Organization [facility] Address [id number] [place] [address] [address] [place] [address] Phone [phone] Care Team Providers Care Program Director Scouting Name Role Phone Pan CARUSO, Evelyn Unavailable PHYLLIS CARUSO, RUNDA Unavailable PHYLLIS CARUSO, RUNDA Unavailable PROBLEMS Condition Status Date Provider Notes SHORTNESS OF BREATH active Chyna Stephen CHEST PAIN-11/30 CATH NEG EF 60 active ? Josh currie RN ABNORMAL STRESS ECHO active - KEVIN RICO NP ABNORMAL ROUTINE STRESS-11/30 active ? Josh barry RN HYPERCHOLESTEROLEMIA SARAH L HYPERTRIGLYCERIDEMIA active Evelyn Perla MD ENCOUNTERS Date Type Provider Location Encounter Diag nosis - In-person encounter Office Visit Evelyn Perla MD [facility] - In-person encounter Office Visit Evelyn Perla MD [facility] HYPERCHOLESTEROLEMIA FAMILIAL HYPERTRIGLYCERIDEMIA - In-person encounter Office Visit Evelyn Perla MD [facility] ABNORMAL STRESS ECHOABNORMAL ROUTINE STRESS-11/30 - In-person encounter Office Visit Evelyn Perla MD [facility] CHEST PAIN-11/30 CATH NEG EF 60 [...] right arm 126 m m[Hg] Loly Whitehorn MS blood pressure, diastolic 90 mm[Hg] florence Smithhorn MS blood pressure, systolic 126 mm[Hg] Kayla Smithkel MS pulse rate 64 /min Tyshawnkarlee Doty rn MA oxygen saturation, oximetry 94 % Loly Whitehorn MA respiratory rate E&M 16 /min Loly Whitehorn MS weight E&M 243 [lb_av] Loly Lalitha padilla MA blood pressure, diastolic 84 mm[Hg] Ca rodgerace Dionne blood pressure, systolic 123 mm[Hg] Can dace Dionne blood pressure, diastolic 85 mm[Hg] Gonzalez Collado blood pressure, systolic 131 mm[Hg] Nigel gomez [place] pulse rate 86 /min [facility] saturation, oximetry 95 % [facility] [place] respiratory rate E&M 16 /min [facility] [place] weight E&M 244 [lb_av] [facility] RESULTS Date Observation Value Provider Reference Range Interpretation Location 0 anion gap, serum 10.0 [facility] 0 Estimated Glomerular Filtration Rate (calc) 74 mL/min/{1 .73_m2} [facility] 0 calcium, serum 9.8 mg/dL [facility] 0 blood glucose, fasting 108 mg/dL [facility] 0 creatinine, serum 1.13 mg/dL [facility] 0 urea nitrogen, blood 19 mg/dL [facility] 0 carbon dioxide, serum, total 28 mmol/L [facility] 0 chloride, serum 102 mmol/L [facility] 0 potassium, serum 4.0 mmol/L [facility] 0 sodium, serum 136 mmol/L [facility] 0 triglyceride, serum, fasting 199 mg/dL [facility] 0 HDL cholesterol, serum 38 mg/dL [facility] 0 LDL cholesterol, serum 139 mg/dL [facility] 0 cholesterol, serum 217 mg/dL [facility] 0 prothrombin time (patient) 13.3 s [facility] 0 international normalized ratio (INR) 0.99 [facility] 0 platelet count 434 10*3/uL [facility] 0 red blood cell distribution width 12.5 % [facility] 0 mean corpuscular hemoglobin concentration, RBC 35.0 g/dL [facility] 0 mean corpuscular hemoglobin, RBC 31.4 pg [...] use, averag e drinks per day yes [facility] alcohol use, average drinks per day social basis only [employer] number of years as a smoker 10 years or m ore [facility] smoking status Quit [facility] FUNCTIONAL STATUS Date Observation Value Provider periodic [...] Payer name Policy type / Coverage type [facility] green party ID [facility] [id number] TREATMENT PLAN Date Name Performer routine: H is updated medication list for this problem includes: Sm Aspirin Low Dose 81 Mg Tbec (Aspirin) ..... 1 tab by mouth daily Hydrochlorothiazide 25 Mg Tabs (Hydrochlorothiazide) ..... 1 tab by mouth daily Metoprolol Succinate 50 Mg [id number] (Metoprolol succinate) ..... 1 tab by mouth [...] by mouth daily Metoprolol Succinate 50 Mg Ow01z-nuc (Metoprolol succinate) ..... 1 tab by mouth daily Amlodipine Besylate 5 Mg Tabs (Amlodipine besylate) ..... 1 tab by mouth daily Diovan 320 Mg Tabs (Valsartan) ..... 1 tab by mouth daily Orders: E KG ([id number]) BP today: 126/86 Prior BP: 126/69 (01/08/2011) [...] by mouth daily Metoprolol Succinate 50 Mg [id number] (Metoprolol succinate) ..... 1 tab by mouth [...] by mouth daily Lovaza 1 Gm Caps (Ltzrl-4-zldl ethyl esters) ..... Take 2 caps twice daily BP today: 126/86 Prior BP: 126/69 (01/08/2011) C HOL: 217 (11/29/2010) LDL: 139 (11/29/2010) HDL: 38 (11/29/2010) T (11/29/2010) Evelyn Perla MD follow up: H is updated medication list for this problem includes: Trilipix 135 Mg Cpdr (Choline fenofibrate) ..... 1 tab by mouth daily Lovaza 1 Gm Caps (Oirzi-0-rpob ethyl esters) ..... Take 2 caps twice [...] by mouth daily Metoprolol Succinate 50 Mg [id number]-[id number] (Metoprolol succinate) ..... 1 tab by mouth [...] by mouth daily Metoprolol Succinate 50 Mg [id number]-[id number] (Metoprolol succinate) ..... 1 tab by mouth [...] by mouth daily Metoprolol Succinate 50 Mg [id number]-egb (Metoprolol succinate) ..... 1 tab by mouth [...] by mouth daily Metoprolol Succinate 50 Mg [id number]-[id number] (Metoprolol succinate) ..... 1 tab by mouth [...] by mouth daily Metoprolol Succinate 50 Mg [id number]-pze (Metoprolol succinate) ..... 1 tab by mouth [...] by mouth daily Metoprolol Succinate 50 Mg [id number]-dxf (Metoprolol succinate) ..... 1 tab by mouth [...] by mouth daily Metoprolol Succinate 50 Mg [id number]-yay (Metoprolol succinate) ..... 1 tab by mouth [...] by mouth daily Metoprolol Succinate 50 Mg [id number]-[id number] (Metoprolol succinate) ..... 1 tab by mouth [...] by mouth daily Metoprolol Succinate 50 Mg [id number]-dwg (Metoprolol succinate) ..... 1 tab by mouth daily Amlodipine Besylate 5 Mg Tabs (Amlodipine besylate) ..... 1 tab by mouth daily Diovan 320 Mg Tabs (Valsartan) ..... 1 tab by mouth daily Orders: Narayan GAONA ([id number]) BP today: 131/85 Prior BP: / () Evelyn Perla MD FOLLOW UP: H is updated medication list for this problem includes: Sm Aspirin Low Dose 81 Mg Tbec (Aspirin) ..... 1 tab by mouth daily Hydrochlorothiazide 25 Mg Tabs (Hydrochlorothiazide) ..... 1 tab by mouth daily Metoprolol Succinate 50 Mg [id number]-ucl (Metoprolol succinate) ..... 1 tab by mouth [...]
--- OUTSIDE RECORDS SUMMARY | 2024-12-16 21:10 | XMS_ITS | Clinical Summary ---
Author Organization [facility] Address [address] [place] [address] Care Team Providers Care Batching Operator Name Role Phone Maribel Caceres MD Primary Care Provider + Allergies Active Allergy Reactions Criticality Noted Date Comments Escitalopram Anxiety,Unknown Low 05/25/2024 Fluoxetine Unknown 05/25/2024 Medications diclofenac EC (VOLTAREN) 75 MG tablet Take 1 tablet (75 mg total) by mouth 2 (two) times daily with meals. 4 Active Enterprise-3 Fatty Acids (OMEGA-3 FISH OIL) 1200 MG [...] so. Assessment & Plan (09/28/2024 9:05 AM ART MUSEUM AIDE): Chronic. Relatively controlled though PTSD symptoms are [...] morning. Assessment & Plan (08/24/2024 12:09 PM ART MUSEUM AIDE): Not previously formally identified or diagnosed. Suspect this will be chronic but manageable with medication and counseling. 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 Discussed options of [...] this. Assessment & Plan (11/22/2024 11:40 AM ART MUSEUM AIDE): He would like to see what changes [...] him. Assessment & Plan (11/22/2024 11:39 AM ART MUSEUM AIDE): Recommend reducing diazepam to 2.5 mg nightly [...] complication, without long-term current use of insulin ([facility]) 01/24/2023 Overview (11/22/2024): Diet controlled. He is improved his diet substantially. Reports that now he is eating a vegan/primarily [employer] plant-based diet. A1c today 6.4%. Tried ozempic and wegovy. Terrible acid reflux. Assessment & Plan (11/22/2024 11:41 AM ART MUSEUM AIDE): Controlled. Continue with diet changes alone. Reviewed [...] Type Department Care Team Description 11/26/2024 Telephone [facility] Family Medicine [facility] [address] [place] [address] Maribel Caceres MD Medication 11/22/2024 9:10 AM ART MUSEUM AIDE Office Visit [facility] Family Medicine - [place] [address] [place] [address] Maribel Caceres MD Medication Check (Here to for med ck. He is decreasing his diazapam dose. Last dose was 9 pm yest. ) 11/22/2024 Travel 11/08/[address] [place] [address] Maribel Caceres MD Refill Request 10/12/2024 MyChart Message Enc [address] [place] [address] Maribel Caceres MD PSA result 09/28/2024 7:50 AM ART MUSEUM AIDE Office Visit [address] [place] [address] Maribel Caceres MD Follow Up (1 month follow up) 09/28/2024 Travel 09/24/[address] [place] [address] Maribel Caceres MD Refill Request from Last [...] Comments Blood Pressure 111/76 11/22/2024 9:14 AM ART MUSEUM AIDE Pulse 73 11/22/2024 9:14 AM ART MUSEUM AIDE Temperature 36.3 C (97.4 F) 11/22/2024 9:14 AM ART MUSEUM AIDE Respiratory Rate 16 09/28/2024 8:00 AM ART MUSEUM AIDE Oxygen Saturation 97% 11/22/2024 9:14 AM ART MUSEUM AIDE Inhaled Oxygen Concentration - - Weight 103.7 kg (228 lb 9.6 oz) 11/22/2024 9:14 AM ART MUSEUM AIDE Height 182.9 cm (6') 11/22/2024 9:14 AM ART MUSEUM AIDE Body Mass Index 31 11/22/2024 9:14 AM ART MUSEUM AIDE Plan of Treatment Upcoming Encounters Date Type Department Care Team (Late st Contact Info) Description 05/24/2025 7:40 AM CDT Allied Health/Nurse Visit [facility] Family Medicine [address] [address] Maribel Caceres MD [address] [address] 05/27/2025 9:30 AM CDT Office Visit [facility] - [address] [address] Maribel Caceres MD [address] [address] Health Maintenance Due Date Last Done Comments [...] Zoster Vaccines Completed 07/05/2020, 11/22/2019 PHQ-2 (Physician [place]) Completed 11/22/2024 Meningococcal B Vaccine Aged Out [...] UDS SCREEN Routine 11/22/2024 10 :33 AM ART MUSEUM AIDE Medication management Therapeutic drug monitoring COLLECTION VENOUS BLOOD VENIPUNCTURE Routine 11/22/2024 10:15 AM ART MUSEUM AIDE Essential hypertension Mixed hyperlipidemia Type 2 diabetes mellitus without complication, without long-term current use of insulin ([facility]) LIPID PANEL Routine 11/22/2024 10:15 AM ART MUSEUM AIDE Mixed hyperlipidemia HEMOGLOBIN, GLYCOSYLATED Routine 11/22/2024 Type 2 diabetes mellitus without complication, without long-term current use of insulin ([facility]) PROSTATE SPECIFIC ANTIGEN,SCREENING Today 10/11/2024 10:15 AM ART MUSEUM AIDE Special screening for malignant neoplasm of prostate POTASSIUM, SERUM Routine 10/11/2024 10:1 3 AM ART MUSEUM AIDE Hyperkalemia TESTOSTERONE, FREE & TOTAL Routine 09/23/2024 8:44 AM ART MUSEUM AIDE Other fatigue COMPREHENSIVE METABOLIC PANEL Today 09/23/2024 8:44 AM ART MUSEUM AIDE Other fatigue CBC W/DIFF AUTOMATED Routine 09/23/2024 8:44 AM ART MUSEUM AIDE Other fatigue TSH W/REFLEX Today 09/23/2024 8:44 AM ART MUSEUM AIDE Other fatigue COLONOSCOPY GENERIC (SCAN ORDER) 02/22/2019 from Last 3 Months or Most Recently Relevant to Health Maintenance Results * (ABNORMAL) MG/PCCL UDS SCREEN (11/22/2024 10:33 AM ART MUSEUM AIDE) FENTANYL SCREEN (U) NEGATIVE <0.5 ng/mL [facility] NOTE [facility] Comment: This drug testing is for medical [...] analytical performance characteristics have been determined by [employer]. It has not been cleared or approved by the FDA. This assay has been validated pursuant to the CLIA regulations and is used for clinical purposes. Healthcare Providers needing Interpretation assistance, please contact us at [phone] ( ) M-F, 8am to 10pm EST URINE SPECIMEN / Unknown 11/22/2024 10:33 AM ART MUSEUM AIDE 11/23/2024 1:13 AM ART MUSEUM AIDE Narrative Resulting Agency Comment Performing Organization Information: Site ID: [id number] [facility]: [facility] Address: [address] [place] [address] Director: Cash Holley Site ID: [id number] Name: [facility] Address: [id number] [place] [phone] Director: Sherwin Hillman MD Maribel Caceres MD URINE ORDERABLES Final R esult [facility] - Private Location App [place] [address] [place] [address] Wave - Private Location App [facility] [address] [place], [place] [address] * LIPID PANEL (11/22/2024 10:15 AM ART MUSEUM AIDE) CHOLESTEROL 171 <200 MG/DL 11/22/2024 3:45 PM ART MUSEUM AIDE [facility] TRIGLYCERIDES 137 <150 MG/DL 11/22/2024 3:45 PM ART MUSEUM AIDE [facility] HDL 57 >40 MG/DL 11/22/2024 3:45 PM ART MUSEUM AIDE [facility] LDL-C 87 <100 MG/DL 11/22/2024 3:45 PM ART MUSEUM AIDE [facility] VLDL CALCULATION 27 5 - 28 MG/DL 11/22/2024 3:45 PM ART MUSEUM AIDE [facility] CHOL/HDL RATIO 3.0 0.0 - 4.0 11/22/2024 3:45 PM ART MUSEUM AIDE [facility] LDL/HDL 1.5 0.41 - 2.13 11/22/2024 3:45 PM ART MUSEUM AIDE [facility] NON HDL CHOLESTEROL 114 <140 MG/DL 11/22/2024 3:45 PM ART MUSEUM AIDE [facility] 11/22/2024 10:1 5 AM ART MUSEUM AIDE Maribel Caceres MD LABORATORY Final Re sult [facility] [place] [address] [place] [address], * A1C (BACK OFFICE) (11/22/2024) HGB A1C 6.4 % [address] [place] 11/22/2024 Maribel Caceres MD LABORATORY Final Re sult [address] [place] [address] [place] [address], * (ABNORMAL) PROSTATE SPECIFIC ANTIGEN,SCREENING (10/11/2024 10:15 AM ART MUSEUM AIDE) PSA TOTAL 2.68(H) < OR = 2.50 ng/mL [facility] - Private Location [facility] Comment: The total PSA value from this [...] absence of disease. 10/11/2024 10:1 5 AM ART MUSEUM AIDE 10/11/2024 10:16 AM ART MUSEUM AIDE Narrative Resulting Agency Comment Performing Organization Information: Site ID: [id number] Name: [facility] Address: [address] [place] [phone] Director: Sherwin Hillman MD us Maribel Caceres MD LABORATORY Final Re sult [facility] [address] [place] [address], [place] * POTASSIUM, SERUM (10/11/2024 10:13 AM ART MUSEUM AIDE) POTASSIUM S/P/B 4.8 3.5 - 5.3 mmol/L [facility] 10/11/2024 10:1 3 AM ART MUSEUM AIDE 10/11/2024 10:14 AM ART MUSEUM AIDE Narrative Resulting Agency Comment Performing Organization Information: Site ID: [id number] Name: [facility] Address: [address] [place] [phone] Director: Sherwin Hillman MD us Maribel Caceres MD LABORATORY Final Re sult Performing Organization Address [facility]/ZIP Co de Phone Number [facility] [place] [id number] [place] [address], [place] * TSH W/REFLEX (09/23/2024 8:44 AM ART MUSEUM AIDE) TSH 1.63 0.40 - 4.50 mIU/L [facility] 09/23/2024 8:44 AM ART MUSEUM AIDE 09/23/2024 8:45 AM ART MUSEUM AIDE Narrative Resulting Agency Comment Performing Organization Information: Site ID: [id number] Name: [facility] Address: [address] [place] [phone] Director: Sherwin Hillman MD us Maribel Caceres MD LABORATORY Final Re sult [facility] [id number] [place] [address], [place] * TESTOSTERONE, FREE & TOTAL (09/23/2024 8:44 AM ART MUSEUM AIDE) Pathologist [facility] TESTOSTERONE TOTAL 464 250 - 1,100 ng/dL [facility] Comment: For additional information, please refer to https://education.[employer]/faq/WOI845 (This link is being provided for informational/educational purposes only.) (Note) This test was developed and its analytical performance characteristics have been determined by [employer]. It has not been cleared or approved by the FDA. This assay has been validated pursuant to the CLIA regulations and is used for clinical purposes. TESTOSTERONE FREE 81.5 35.0 - 155.0 pg/mL [facility] Comment: (Note) This test was developed and its analytical performance characteristics have been determined by [employer]. It has not been cleared or approved by the FDA. This assay has been validated pursuant to the CLIA regulations and is used for clinical purposes. [facility] [address] [place] [address],[place] [address] Raegan Guerrero MD, PhD 09/23/2024 8:44 AM ART MUSEUM AIDE 09/23/2024 8:45 AM ART MUSEUM AIDE Narrative Resulting Agency Comment Performing Organization Information: Site ID: [id number] Name: [facility] Address: [address] [place] [address], [address] [phone] Director: Raegan Guerrero MD,PhD us Maribel Caceres MD LABORATORY Final Re sult [facility] [address] [place] [address], [place] [phone], * (ABNORMAL) COMPREHENSIVE METABOLIC PANEL (09/23/2024 8:44 AM ART MUSEUM AIDE) [facility] GLUCOSE 128(H) 65 - 99 mg/dL Wave - Private Location App [facility] Comment: Fasting reference interval For someone without known diabetes, a glucose value >125 mg/dL indicates that they may have diabetes and this should be confirmed with a follow-up test. BUN 29(H) 7 - 25 mg/dL [facility] - Private Location App [facility] CREATININE S/P/B 1.10 0.70 - 1.35 mg/dL [facility] GFR ESTIMATE 76 > OR = 60 mL/min/1.7 3m2 [facility] - Private Location App [facility] BUN CREATININE RATIO 26(H) 6 - 22 (calc) [facility] - Private Location App [facility] SODIUM S/P/B 139 135 - 146 mmol/L [facility] - Private Location [facility] POTASSIUM S/P/B 5.4(H) 3.5 - 5.3 mmol/L Wave - Private Location App [facility] CHLORIDE S/P/B 104 98 - 110 mmol/L Wave - Private Location App [place] CO2 31 20 - 32 mmol/L Wave - Private Location App [facility] CALCIUM S/P/B 10.0 8.6 - 10.3 mg/dL Wave - Private Location App [facility] TOTAL PROTEIN S/P/B 6.5 6.1 - 8.1 g/dL Wave - Private Location App [facility] ALBUMIN S/P/B 4.3 3.6 - 5.1 g/dL [facility] - Private Location [facility] GLOBULIN 2.2 1.9 - 3.7 g/dL (calc) Wave - Private Location App [facility] ALBUMIN/GLOBULIN RATIO 2.0 1.0 - 2.5 (calc) Wave - Private Location App [facility] BILIRUBIN TOTAL S/P/B 0.3 0.2 - 1.2 mg/dL Wave - Private Location App [facility] ALKALINE PHOSPHATASE S/P/B 43 35 - 144 U/L Wave - Private Location App [facility] AST 13 10 - 35 U/L [facility] - Private Location App [facility] ALT 15 9 - 46 U/L [facility] - Private Location [facility] 09/23/2024 8:44 AM ART MUSEUM AIDE 09/23/2024 8:45 AM ART MUSEUM AIDE Narrative Resulting Agency Comment Performing Organization Information: Site ID: [place] Name: [facility] Address: [address] [place] [address] Director: Sherwin Hillman MD us Maribel Caceres MD LABORATORY Final Re sult [facility] [address] [place] [address], * CBC W/DIFF AUTOMATED (09/23/2024 8:44 AM ART MUSEUM AIDE) WBC 6.7 3.8 - 10.8 Thousand/u L [facility] - Private Location [facility] RBC 4.50 4.20 - 5.80 Million/uL [facility] [...] condition. RDW 12.4 11.0 - 15.0 % [facility] [place] PLT 316 140 - 400 Thousand/u L [facility] [place] MPV 9.7 7.5 - 12.5 fL [facility] [place] ABS. NEUTROPHILS 2,660 1,500 - 7,800 cells/uL [facility] [place] ABS. LYMPHOCYTES 3,223 850 - 3,900 cells/uL [facility] [place] ABS. MONOCYTES 590 200 - 950 cells/uL [facility] [place] ABS. EOSINOPHILS 181 15 - 500 cells/uL [facility] [place] ABS. BASOPHILS 47 0 - 200 cells/uL [facility] [place] SEG NEUTROPHILS 39.7 % [facility] LYMPHOCYTES 48.1 % [facility] [place] MONOCYTES 8.8 % [facility] [place] EOSINOPHILS 2.7 % [facility] [place] BASOPHILS 0.7 % [facility] 09/23/2024 8:44 AM ART MUSEUM AIDE 09/23/2024 8:45 AM ART MUSEUM AIDE Narrative Resulting Agency Comment Performing Organization Information: Site ID: [place] Name: [facility] Address: [address] [place] [phone] Director: Sherwin Hillman MD Maribel Caceres MD LABORATORY Final Re sult [facility] [address] [place] [place] [address], [place] * COLONOSCOPY GENERIC (SCAN ORDER) (02/22/2019) 02/22/2019 [facility] Scanned SCANNING Final Resu lt from Last 3 Months or Most Recently Relevant to Health Maintenance Insurance [facility] Care Teams Batching Operator Relationship Specialty Start Date End Date Maribel Caceres MD [address] [place] [id number] PCP - General FAMILY PRACTICE 05/19/24
[2024-12-16 21:16] LABS: Basophils Percent Auto 0.4 % (0.2-1.2); Eosinophils Absolute Auto 0.2 K/mm3 (0-0.3); Eosinophils Percent Auto 2.1 % (0-4.4); Hemoglobin 14.1 g/dL (14.0-18.0); Immature Granulocyte Absolute 0.02 K/mm3 (0.00-0.031); Immature Granulocyte Percent A 0.2 % (0-0.5); Lymphocytes Absolute Auto 3.65 K/mm3 (0.9-3.2); Mean Corpuscular HGB Conc 34.4 g/dl (32-36); Mean Corpuscular Hemoglobin 30.5 pg (26-34); Mean Corpuscular Volume 88.7 fl (80-100); Mean Platelet Volume 9.3 fl (7.4-10.4); Monocytes Absolute Auto 0.8 K/mm3 (0.1-0.6); Monocytes Percent Auto 9.1 % (2.6-8.5); Neutrophils Absolute Auto 4.4 K/mm3 (1.3-6.7); Neutrophils Percent Auto 48.2 % (45.5-73.1); Platelet Count Result 329 k/mm3 (150-375); Red Blood Count 4.62 M/mm3 (4.6-6.20); Red Cell Distribution Width 12.6 % (11.5-14.5); White Blood Count 9.1 K/mm3 (4.5-10.0)
[2024-12-16] MEDS: ONDANSETRON INJ 4 MG/2 ML VIAL IV PUSH (21:21)
[2024-12-16] MEDS: HYDROmorphone HCL INJ (*CRX) 1 MG/ML SYR IV PUSH ×2 (21:21→22:22)
[2024-12-16 21:25] LABS: Alanine Aminotransferase 24 U/L (6-50); Albumin Level 4.5 g/dL (3.5-5.1); Alkaline Phosphatase 56 U/L (38-126); Anion Gap 12 mmol/L (4-12); Aspartate Amino Transferase 23 U/L (17-59); Bilirubin,Total 0.4 mg/dL (0.2-1.3); Blood Urea Nitrogen 21 mg/dL (9-20); Calcium 9.9 mg/dL (8.4-10.2); Carbon Dioxide 24 mmol/L (22-30); Chloride 105 mmol/L (98-107); Estimated CRCL calculation 77 ml/min; Estimated Glomerular Filt Rate > 60; Glucose 117 mg/dL (65-110); Potassium 4.1 mmol/L (3.4-5.0); Sodium 141 mmol/L (137-145)
[2024-12-16 21:35] LABS: INR 0.9; Prothrombin Time 12.6 Seconds (11.1-14.7)
[2024-12-16 21:36] LABS: Partial Thromboplastin Time 29.6 Seconds (22.3-36.8)
[2024-12-16 21:57] VITALS: BP 167/93; PULSE 68; RESP 17; O2SAT 97
[2024-12-16 22:00] VITALS: O2SAT 92
[2024-12-16 22:17] VITALS: BP 152/79; PULSE 61; RESP 15; O2SAT 93
--- NOTE | 2024-12-16 22:25 | PC.NURSE ---
Assumed care of pt from RANDY Martinez at this time. Pt lying in bed with call light within reach, family member at bedside.
[2024-12-16 22:31] VITALS: BP 129/74; PULSE 69; RESP 16
[2024-12-16 22:31] LABS: Add Urine Microscopic? YES; Appearance Urine Cloudy (Clear); Bacteria Urine None Seen /hpf; Bilirubin Urine Negative (Negative); Blood Urine 2+ (Negative); Color Urine Yellow (Yellow); Glucose Urine UA Negative (Negative); Ketones Urine Negative (Negative); Leukocyte Esterase Ur Negative LEU/UL (Negative); Nitrate Urine Negative (Negative); Non Pathogenic Casts 0-2; Protein Urine Negative (Negative); RBC Urine 21-50 /hpf (0-2); Specific Grav Ur 1.035 (1.001-1.035); Squamous Epithelial Cell Urine None Seen /hpf (Few); WBC Urine 0-5 /hpf (0-3)
[2024-12-16 23:00] VITALS: BP 141/76; PULSE 77; RESP 12; O2SAT 95
[2024-12-16] MEDS: fentaNYL CITRATE INJ (*CRX) 100 MCG/2 ML VIAL 50 MCG IV PUSH (23:06)
[2024-12-17] VITALS (12 sets, daily range): BP systolic 102–154; BP diastolic 50–83; PULSE 49–78; RESP 12–20; TEMP 35.8–36.6; O2SAT 95–100; BMI 29.8
[2024-12-17] MEDS: SODIUM CHLORIDE 0.9% IV 1,000 ML 125 ML IV CONT ×2 (00:58→10:13)
[2024-12-17] MEDS: fentaNYL CITRATE INJ (*CRX) 100 MCG/2 ML VIAL 50 MCG IV PUSH ×5 (01:01→20:01)
--- NOTE | 2024-12-17 02:52 | P.HP_ITS ---
H&P: HPI History of Present Illness Date/Time: 12/17/24 02:52 Chief Complaint: flank pain Narrative: This is a 59-year-old male with a significant past medical history of anxiety, kidney stones, hypertension, hyperlipidemia, depression, GERD, diabetes anxiety, posttraumatic stress disorder former smoker who presented to the hospital with complaints of right flank pain that radiates to the abdomen and right groin. Workup in the hospital included an abdomen/pelvis CT with contrast which shown 2 mm stone in the right ureter with right hydronephrotic changes, tiny stone in the right kidney midpole, no evidence of appendicitis, diverticulitis or intestinal obstruction. Initial labs showed a normal white blood cell count of 9.1, blood sugar 117, otherwise unremarkable. UA showed cloudy urine appearance, 2+ urine blood, 21-50 urine RBC otherwise negative. Patient was given Zofran and pain medication while in the ED. He was started on normal saline at 125 mL/hour and Urology was consulted. Review of Systems Review of Systems: All systems reviewed & are unremarkable except as noted in HPI and below PMFSH Past Medical History Medical History Diabetes GERD (gastroesophageal reflux disease) Posttraumatic stress disorder Left ureteral stone April 2022 Anxiety Medial meniscus tear Fusion of carpal bone, congenital HTN (hypertension) HLD (hyperlipidemia) Vision abnormalities Right knee pain Depression Surgical History Surgical History H/O right wrist surgery H/O umbilical hernia repair H/O ureteroscopy 05/10/2022; left; Dr Mei H/O cystoscopy 05/10/22; Dr Mei Family History Family History Unknown Cardiovascular disease Diabetes mellitus Hypertension Cancer Nerve disorder Arthritis Social History Social History Smoking packs per day: 1 Smoking cigarettes per day: 20.0 Years smoked: 20 Smoking pack-years: 20.00 Smoking status: Former smoker Second hand tobacco smoke exposure: No Additional smoking assessment comments: QUIT 20 YEARS AGO Alcohol intake: current Drinks per week: 1 Alcohol use details: RARE Substance use: former Substance use type: marijuana Other substance usage details: MULTIPLE DRUGS TEENAGER AND YOUNG ADULT Do You Feel Safe in your Home?: Yes Lack of Transportation: No Lack of Food: Never True Current Housing: I Have Housing Concerned About Future Housing: No Difficulty Paying Gas/Electric Bills: No Difficulty Paying for Meds: No Currently Unemployed: No Education: Bachelor's Degree Difficulty w/ Childcare or Family Care: No Living arrangements: with family Occupation/Education: retired 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 [employer] Gender identity (if verbalized by the patient): Male Sexual Orientation (if Verbalized by the Patient): Straight or Heterosexual Spiritual care concerns: No Agree to blood products: Yes Meds Home Medications and Allergies Home Medications ?Medication ?Instructions ?Recorded ?Confirmed ?Type amlodipine 10 mg tablet 10 mg PO DAILY 03/20/20 12/17/24 History fenofibrate 50 mg capsule 50 mg PO DAILY 03/20/20 12/17/24 History omeprazole 20 mg capsule,delayed 20 mg PO DAILY 03/20/20 12/17/24 History release trazodone 100 mg tablet 200 mg PO HS PRN insomnia 03/20/20 12/17/24 History omega 0-oxh-loe-fish oil 1,000 mg 1 cap PO DAILY 04/18/20 12/17/24 History (120 mg-180 mg) capsule (Fish Oil) tamsulosin 0.4 mg capsule (Flomax) 0.4 mg PO DAILY #7 caps 05/02/22 12/17/24 Rx diazepam 5 mg tablet 2.5 mg PO HS 12/17/24 12/17/24 History hydrochlorothiazide 25 mg tablet 25 mg PO DAILY 12/17/24 12/17/24 History lisinopril 40 mg tablet 20 mg PO DAILY 12/17/24 12/17/24 History pravastatin 80 mg tablet 80 mg PO HS 12/17/24 12/17/24 History prazosin 2 mg capsule 2 mg PO HS 12/17/24 12/17/24 History Allergies Allergy/AdvReac Type Severity Reaction Status Date / Time escitalopram Allergy Intermediate altered Verified 12/16/24 20:49 mood changes Vital Signs Vital Signs - 24 hr 12/16/24 20:52 12/16/24 21:57 12/16/24 22:00 Temperature 98.3 F Pulse Rate 76 68 Respiratory Rate 18 17 Blood Pressure 177/92 H 167/93 H Pulse Oximetry 97 97 92 Oxygen Delivery Room Air 12/16/24 22:17 12/16/24 22:31 12/16/24 23:00 Temperature Pulse Rate 61 69 77 Respiratory Rate 15 16 12 Blood Pressure 152/79 H 129/74 141/76 H Pulse Oximetry 93 95 Oxygen Delivery 12/17/24 00:25 12/17/24 01:48 Temperature 96.4 F L Pulse Rate 78 Respiratory Rate 16 Blood Pressure 129/66 Pulse Oximetry 98 Oxygen Delivery Room Air Exam Narrative: General: In no acute distress, well nourished Head: atraumatic, no encephalopathy Eyes: PERRLA, sclera clear ENT: moist mucous membranes, nasal passages clear Neck: supple, no JVD, no adenopathy, trachea midline Cardiac: Normal S1 and S2. RRR, No murmur, gallops or friction rubs, peripheral pulses intact. Respiratory: Lungs clear to auscultation, no adventitious lung sounds, currently on room air Gastrointestinal: soft, non-distended, non-tender, normoactive bowel sounds. : reporting right flank pain that radiates to the abdomen and extends to the groin. Extremities: moves all extremities well, no edema Skin: clean, dry, intact. No wounds or lesions. Neuro: Alert and oriented x4, cranial nerves intact, no neuro deficits. Psych: normal mood, normal affect, interactive H&P: Results Labs Labs: Short CBC 12/16/24 Range/Units 21:11 WBC 9.1 (4.5-10.0) K/mm3 Hgb 14.1 (14.0-18.0) g/dL Hct 41.0 L (42.0-52.0) % Plt Count 329 (150-375) k/mm3 BMP 12/16/24 21:11 Sodium 141 Potassium 4.1 Chloride 105 Carbon Dioxide 24 BUN 21 H Creatinine 1.01 Glucose 117 H Calcium 9.9 Liver Function 12/16/24 Range/Units 21:11 Total Bilirubin 0.4 (0.2-1.3) mg/dL AST 23 (17-59) U/L ALT 24 (6-50) U/L Alkaline Phosphatase 56 (38-126) U/L Albumin 4.5 (3.5-5.1) g/dL Urine 12/16/24 Range/Units 22:18 Urine Color Yellow (Yellow) Urine Appearance Cloudy H (Clear) Urine pH 7.0 (5.0-9.0) Ur Specific [place] 1.035 (1.001-1.035) Urine Protein Negative (Negative) mg/dL Urine Glucose (UA) Negative (Negative) mg/dL Imaging Abdomen/pelvis CT: Radiologist's impression: CT abdomen pelvis w con Ordering provider: Anisa Tiwari MD History: 59 years Male with . R sided flank pain; c/f stones (hx of) . Comparison: Technique: CT abdomen and pelvis with IV and without oral contrast. Automated exposure control and iterative reconstruction technique were employed. The dose- length product was 1050.03 mGy-cm. 100 mL Omnipaque 350 was given IV. Findings: VISUALIZED LOWER CHEST: Normal. UPPER ABDOMINAL ORGANS: Liver: Normal. Gallbladder: Normal. Spleen: Normal. Stomach/duodenum: Normal. Pancreas: Normal. Slightly prominent pancreatic duct. Adrenals: Normal. Kidneys: Stone in the right upper ureter with hydronephrotic changes. This stone measures 8 mm. 4 mm Stone also seen in the may ureter. Tiny stone in the right kidney midpole. PELVIC ORGANS: The bladder shows slightly thickened wall. BOWEL AND MESENTERY: Colon: No evidence of diverticulitis.. Normal appendix. Small Bowel: Normal. No obstruction. Peritoneum/mesentery: No free air or free fluid. No mesenteric lymphadenopathy. RETROPERITONEUM: Mild atheromatous disease of the abdominal aorta. No retroperitoneal lymphadenopathy. MUSCULOSKELETAL: Superficial soft tissues: 2 Defects are seen in the anterior abdominal wall suggestive of hernia with fat content. Fat stranding is seen in these 2 areas. Otherwise, The superficial soft tissues are normal. Bones: Age appropriate degenerative changes of the spine. IMPRESSION: 1. 2 stones in the right ureter with right hydronephrotic changes. Tiny stone in the right kidney midpole. 2. No evidence of appendicitis, diverticulitis or intestinal obstruction. Reviewed, dictated and finalized at location A. Assessment and Plan Assessment and plan (1) Right ureteral calculus: Code(s): N20.1 - Calculus of ureter Status: Acute Assessment and Plan: * Abdomen/pelvis CT showed 2 stones in the right ureter with right hydronephrotic changes, tiny stone in the right kidney midpole, no evidence of appendicitis, diverticulitis or intestinal obstruction * Initial labs and UA were essentially unremarkable. * Urology consulted * Continue IV fluids at 125 mL/hour * Keep NPO for potential cystoscopy today * Order to Strain urine * Continue pain and nausea control * Continue tamsulosin (2) HTN (hypertension): Code(s): I10 - Essential (primary) hypertension Status: Acute Assessment and Plan: * Blood pressure ranging 129/66 to 177/92 * Continue lisinopril, amlodipine, and hydrochlorothiazide (3) HLD (hyperlipidemia): Code(s): E78.5 - Hyperlipidemia, unspecified Status: Acute Assessment and Plan: * Continue [place] 3, pravastatin and fenofibrate (4) Diabetes: Code(s): E11.9 - Type 2 diabetes mellitus without complications Status: Acute Assessment and Plan: * Blood sugar 117 * Hgb A1C ordered * Accu checks q.6 hour while NPO * Moderate SSI ordered * hypoglycemic protocol in place * Currently NPO * Not currently on any home medications Quality VTE Prophylaxis VTE prophylaxis: mechanical ordered Hospitalist MIPS Advance Care Plan I have confirmed that the patient's Advanced Care Plan is present, code status is documented, or surrogate decision maker is listed in patient medical record.: Yes Medication Reconciliation I have utilized all available resources to obtain, update and review the patients current medications (includes all prescriptions, OTC, herbals, cannabis, and nutritional supplements).: Yes
[2024-12-17 06:07] LABS: Basophils Percent Auto 0.4 % (0.2-1.2); Eosinophils Absolute Auto 0.2 K/mm3 (0-0.3); Eosinophils Percent Auto 1.8 % (0-4.4); Hematocrit 36.5 % (42.0-52.0); Hemoglobin 12.5 g/dL (14.0-18.0); Immature Granulocyte Absolute 0.02 K/mm3 (0.00-0.031); Immature Granulocyte Percent A 0.2 % (0-0.5); Lymphocytes Absolute Auto 3.25 K/mm3 (0.9-3.2); Lymphocytes Percent Auto 34.9 % (18.3-44.2); Mean Corpuscular HGB Conc 34.2 g/dl (32-36); Mean Corpuscular Hemoglobin 30.9 pg (26-34); Mean Corpuscular Volume 90.1 fl (80-100); Mean Platelet Volume 9.4 fl (7.4-10.4); Monocytes Absolute Auto 0.8 K/mm3 (0.1-0.6); Monocytes Percent Auto 8.3 % (2.6-8.5); Neutrophils Absolute Auto 5.1 K/mm3 (1.3-6.7); Neutrophils Percent Auto 54.4 % (45.5-73.1); Platelet Count Result 284 k/mm3 (150-375); Red Blood Count 4.05 M/mm3 (4.6-6.20); Red Cell Distribution Width 12.6 % (11.5-14.5); White Blood Count 9.3 K/mm3 (4.5-10.0)
[2024-12-17 06:14] LABS: Alanine Aminotransferase 20 U/L (6-50); Albumin Level 3.9 g/dL (3.5-5.1); Alkaline Phosphatase 54 U/L (38-126); Anion Gap 6 mmol/L (4-12); Aspartate Amino Transferase 21 U/L (17-59); Bilirubin,Total 0.2 mg/dL (0.2-1.3); Blood Urea Nitrogen 21 mg/dL (9-20); Calcium 9.3 mg/dL (8.4-10.2); Carbon Dioxide 26 mmol/L (22-30); Chloride 108 mmol/L (98-107); Estimated CRCL calculation 83 ml/min; Estimated Glomerular Filt Rate > 60; Glucose 113 mg/dL (65-110); Sodium 140 mmol/L (137-145)
[2024-12-17 06:17] LABS: Glucose Point of Care 127 mg/dl (65-105)
[2024-12-17 06:24] LABS: Hemoglobin A1C 6.3 % (<5.7)
--- NOTE | 2024-12-17 08:09 | WPDURCON ---
Assessment and Plan Assessment and plan (1) Right ureteral calculus: Code(s): N20.1 - Calculus of ureter Status: Acute Assessment and Plan: - 12/16/24 CT AP WO CON: Two right obstructing ureteral stones (8mm proximal, 4mm mid), right hydronephrosis, slight bladder wall thickening - UA neg for infection, renal function stable, afebrile Plan - Keep NPO for cystoscopy, right ureteroscopy, laser lithotripsy, right ureteral stent placement in the OR with Dr. Mei today. Patient aware and agreeable. Urology Consult Note HPI Date Seen: 12/17/24 Requesting Physician: Дмитрий Cortes MD Primary Care Provider: UNKNOWN,DOCTOR Consult Narrative Reason for consult: Obstructing right ureteral stones Narrative: Radames Newell is a 59 year old male with a history of stones who presented to the ER overnight with sudden-onset left flank pain and nausea. CT imaging reveals two right obstructing ureteral stones (8mm proximal, 4mm mid), right hydronephrosis, slight bladder wall thickening. Urinalysis with 2+blood, negative for infection. Renal function stable, Cr 0.9. Afebrile. He has been NPO overnight for surgical intervention with Dr. Mei today. Patient comfortable on exam this morning. No distress. He underwent left ureteroscopy/stent April 2022. Other medical history significant for HTN, DM. Transitioned to vegan diet 09/2024. Former smoker. No PSA on file. Review of Systems Review of Systems: All systems reviewed & are unremarkable except as noted in HPI and below (Right flank tenderness, nausea) [facility] Past Medical History Medical History Diabetes GERD (gastroesophageal reflux disease) Posttraumatic stress disorder Left ureteral stone April 2022 Anxiety Medial meniscus tear Fusion of carpal bone, congenital HTN (hypertension) HLD (hyperlipidemia) Vision abnormalities Right knee pain Depression Surgical History Surgical History H/O right wrist surgery H/O umbilical hernia repair H/O ureteroscopy 05/10/2022; left; Dr Mei H/O cystoscopy 05/10/22; Dr Mei Family History Family History Unknown Cardiovascular disease Diabetes mellitus Hypertension Cancer Nerve disorder Arthritis Social History Social History Smoking packs per day: 1 Smoking cigarettes per day: 20.0 Years smoked: 20 Smoking pack-years: 20.00 Smoking status: Former smoker Second hand tobacco smoke exposure: No Additional smoking assessment comments: QUIT 20 YEARS AGO Alcohol intake: current Drinks per week: 1 Alcohol use details: RARE Substance use: former Substance use type: marijuana Other substance usage details: MULTIPLE DRUGS TEENAGER AND YOUNG ADULT Do You Feel Safe in your Home?: Yes Lack of Transportation: No Lack of Food: Never True Current Housing: I Have Housing Concerned About Future Housing: No Difficulty Paying Gas/Electric Bills: No Difficulty Paying for Meds: No Currently Unemployed: No Education: Bachelor's Degree Difficulty w/ Childcare or Family Care: No Living arrangements: with family Occupation/Education: retired 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 [employer] Gender identity (if verbalized by the patient): Male Sexual Orientation (if Verbalized by the Patient): Straight or Heterosexual Spiritual care concerns: No Agree to blood products: Yes Meds Home Medications and Allergies Home Medications ?Medication ?Instructions ?Recorded ?Confirmed ?Type amlodipine 10 mg tablet 10 mg PO DAILY 03/20/20 12/17/24 History fenofibrate 50 mg capsule 50 mg PO DAILY 03/20/20 12/17/24 History omeprazole 20 mg capsule,delayed 20 mg PO DAILY 03/20/20 12/17/24 History release trazodone 100 mg tablet 200 mg PO HS PRN insomnia 03/20/20 12/17/24 History omega 0-flu-lar-fish oil 1,000 mg 1 cap PO DAILY 04/18/20 12/17/24 History (120 mg-180 mg) capsule (Fish Oil) tamsulosin 0.4 mg capsule (Flomax) 0.4 mg PO DAILY #7 caps 05/02/22 12/17/24 Rx diazepam 5 mg tablet 2.5 mg PO HS 12/17/24 12/17/24 History hydrochlorothiazide 25 mg tablet 25 mg PO DAILY 12/17/24 12/17/24 History lisinopril 40 mg tablet 20 mg PO DAILY 12/17/24 12/17/24 History pravastatin 80 mg tablet 80 mg PO HS 12/17/24 12/17/24 History prazosin 2 mg capsule 2 mg PO HS 12/17/24 12/17/24 History Allergies Allergy/AdvReac Type Severity Reaction Status Date / Time escitalopram Allergy Intermediate altered Verified 12/16/24 20:49 mood changes Vital Signs Vital Signs - 24 hr 12/16/24 20:52 12/16/24 21:57 12/16/24 22:00 Temperature 98.3 F Pulse Rate 76 68 Respiratory Rate 18 17 Blood Pressure 177/92 H 167/93 H Pulse Oximetry 97 97 92 Oxygen Delivery Room Air 12/16/24 22:17 12/16/24 22:31 12/16/24 23:00 Temperature Pulse Rate 61 69 77 Respiratory Rate 15 16 12 Blood Pressure 152/79 H 129/74 141/76 H Pulse Oximetry 93 95 Oxygen Delivery 12/17/24 00:25 12/17/24 01:48 12/17/24 04:10 Temperature 96.4 F L 96.8 F L Pulse Rate 78 65 Respiratory Rate 16 20 Blood Pressure 129/66 102/50 L Pulse Oximetry 98 95 Oxygen Delivery Room Air Exam Const: General: no acute distress HENMT: Face/Nose/Sinus: Normal nares present Eyes: General: appearance normal, both eyes and all related structures Resp: Effort & Inspection: normal respiratory effort GI: Other: RLQ tender : Other: Right flank tenderness Skin: General skin exam: normal color Neuro: Speech: normal speech Psych: Speech and movement: Normal speech and movement present Results Labs 12/17/24 05:39 12/17/24 05:39 Labs: Short CBC 12/16/24 12/17/24 Range/Units 21:11 05:39 WBC 9.1 9.3 (4.5-10.0) K/mm3 Hgb 14.1 12.5 L (14.0-18.0) g/dL Hct 41.0 L 36.5 L (42.0-52.0) % Plt Count 329 284 (150-375) k/mm3 BMP 12/16/24 12/17/24 21:11 05:39 Sodium 141 140 Potassium 4.1 4.0 Chloride 105 108 H Carbon Dioxide 24 26 BUN 21 H 21 H Creatinine 1.01 0.93 Glucose 117 H 113 H Calcium 9.9 9.3 Liver Function 12/16/24 12/17/24 Range/Units 21:11 05:39 Total Bilirubin 0.4 0.2 (0.2-1.3) mg/dL AST 23 21 (17-59) U/L ALT 24 20 (6-50) U/L Alkaline Phosphatase 56 54 (38-126) U/L Albumin 4.5 3.9 (3.5-5.1) g/dL Urine 12/16/24 Range/Units 22:18 Urine Color Yellow (Yellow) Urine Appearance Cloudy H (Clear) Urine pH 7.0 (5.0-9.0) Ur Specific [place] 1.035 (1.001-1.035) Urine Protein Negative (Negative) mg/dL Urine Glucose (UA) Negative (Negative) mg/dL
--- NOTE | 2024-12-17 08:52 | P.PNIM_ITS ---
Progress Note: A&P Assessment and Plan (1) Right ureteral calculus: Code(s): N20.1 - Calculus of ureter Status: Acute Assessment and Plan: * Abdomen/pelvis CT showed 2 stones in the right ureter with right hydro nephrotic changes, tiny stone in the right kidney midpole, no evidence of appendicitis, diverticulitis or intestinal obstruction * Initial labs and UA were essentially unremarkable. * Urology consulted * Continue IV fluids at 125 mL/hour * Underwent Cystoscopy, right retrograde, right ureteroscopy with holmium laser, stone extraction, right ureteral stent placement 4.8 * Order to Strain urine * Continue pain and nausea control * Continue tamsulosin (2) HTN (hypertension): Code(s): I10 - Essential (primary) hypertension Status: Acute Assessment and Plan: * Blood pressure ranging 129/66 to 177/92 * Continue lisinopril, amlodipine, and hydrochlorothiazide (3) HLD (hyperlipidemia): Code(s): E78.5 - Hyperlipidemia, unspecified Status: Acute Assessment and Plan: * Continue Pringle 3, pravastatin and fenofibrate (4) Diabetes: Code(s): E11.9 - Type 2 diabetes mellitus without complications Status: Acute Assessment and Plan: * Blood sugar 117 * Hgb A1C ordered * Accu checks q.6 hour while NPO * Moderate SSI ordered * hypoglycemic protocol in place * Currently NPO * Not currently on any home medications Subjective Date/time seen: 12/17/24 08:52 Interval history: Interval history:59-year-old male with a significant past medical history of anxiety, kidney stones, hypertension, hyperlipidemia, depression, GERD, diabetes anxiety, posttraumatic stress disorder former smoker who presented to the hospital with complaints of right flank pain that radiates to the abdomen and right groin. Workup in the hospital included an abdomen/pelvis CT with contrast which shown 2 mm stone in the right ureter with right hydronephrotic changes, tiny stone in the right kidney midpole, no evidence of appendicitis, diverticulitis or intestinal obstruction. Initial labs showed a normal white blood cell count of 9.1, blood sugar 117, otherwise unremarkable. UA showed cloudy urine appearance, 2+ urine blood, 21-50 urine RBC otherwise negative 12/17: Underwent Cystoscopy, right retrograde, right ureteroscopy with holmium laser, stone extraction, right ureteral stent placement. Monitor until tomorrow and discharge. Review of Systems Review of Systems: All systems reviewed & are unremarkable except as noted in HPI and below Exam Narrative: General: In no acute distress, well nourished Head: atraumatic, no encephalopathy Eyes: PERRLA, sclera clear ENT: moist mucous membranes, nasal passages clear Neck: supple, no JVD, no adenopathy, trachea midline Cardiac: Normal S1 and S2. RRR, No murmur, gallops or friction rubs, peripheral pulses intact. Respiratory: Lungs clear to auscultation, no adventitious lung sounds, currently on room air Gastrointestinal: soft, non-distended, non-tender, normoactive bowel sounds. : reporting right flank pain that radiates to the abdomen and extends to the groin. Extremities: moves all extremities well, no edema Skin: clean, dry, intact. No wounds or lesions. Neuro: Alert and oriented x4, cranial nerves intact, no neuro deficits. Psych: normal mood, normal affect, interactive Objective Data Vital Signs Vital Signs: Vital Signs - 24 hr 12/16/24 20:52 12/16/24 21:57 12/16/24 22:00 Temperature 98.3 F Pulse Rate 76 68 Respiratory Rate 18 17 Blood Pressure 177/92 H 167/93 H Pulse Oximetry 97 97 92 Oxygen Delivery Room Air 12/16/24 22:17 12/16/24 22:31 12/16/24 23:00 Temperature Pulse Rate 61 69 77 Respiratory Rate 15 16 12 Blood Pressure 152/79 H 129/74 141/76 H Pulse Oximetry 93 95 Oxygen Delivery 12/17/24 00:25 12/17/24 01:48 12/17/24 04:10 Temperature 96.4 F L 96.8 F L Pulse Rate 78 65 Respiratory Rate 16 20 Blood Pressure 129/66 102/50 L Pulse Oximetry 98 95 Oxygen Delivery Room Air Intake/Output Intake/Output: Intake & Output 12/14/24 12/15/24 12/16/24 12/17/24 23:59 23:59 23:59 23:59 Intake Total 0 Output Total 375 Balance -375 Meds/Results Medications: Active Medications Generic Name Dose Route Start Last Admin Trade Name Freq PRN Reason Stop Dose Admin Acetaminophen 650 mg 12/17/24 03:06 Acetaminophen 325 Mg Tablet PO Q4H PRN Mild Pain (1-3) or Fever Amlodipine Besylate 10 mg 12/17/24 09:00 Amlodipine Besylate 10 Mg Tablet PO DAILY PENDING SALE TO [facility] Dextrose 12.5 gm 12/17/24 03:12 Dextrose 50% 25 Gm/50 Ml Syringe IV PUSH PRN PRN Hypoglycemia Protocol Diazepam 2.5 mg 12/17/24 21:00 Diazepam (*Crx) 2.5 Mg Tablet PO HS PENDING SALE TO [facility] Fenofibrate 48 mg 12/17/24 09:00 Fenofibrate,Micronized 48 Mg Tablet PO 01/16/25 08:59 DAILY PENDING SALE TO [facility] Fentanyl Citrate 50 mcg 12/16/24 23:16 12/17/24 05:34 Fentanyl Citrate Inj (*Crx) 100 Mcg/2 Ml Vial IV PUSH 50 mcg Q2H PRN Administration Pain Rated 7-10 Fish Oil 1 gm 12/17/24 09:00 Pringle 3 Polyunsat Fatty Acids 1 Gm Cap PO DAILY PENDING SALE TO [facility] Glucagon 1 mg 12/17/24 03:12 Glucagon For Inj 1 Mg Vial IM PRN PRN Hypoglycemia Protocol Glucose 15 gm 12/17/24 03:12 Glucose Oral Gel 15 Gm Of Glucse In 37.5 Gm Tube PO PRN PRN Hypoglycemia Protocol Hydrochlorothiazide 25 mg 12/17/24 09:00 Hydrochlorothiazide 25 Mg Tablet PO DAILY PENDING SALE TO [facility] Sodium Chloride 1,000 mls @ 125 mls/hr 12/16/24 23:20 12/17/24 00:58 Normal Saline Iv IV CONT 125 mls/hr .Q8H VANESSA Administration Dextrose 1,000 mls @ 100 mls/hr 12/17/24 03:12 Dextrose 5% 1,000 Ml IVPB PRN PRN Hypoglycemia Protocol Insulin Aspart 3 - 6 units 12/17/24 08:00 12/17/24 08:28 Insulin Aspart (*Bkc) 100 Units/Ml SUB-Q Not Given TIDWM PENDING SALE TO [facility] Protocol Insulin Aspart 1 - 3 units 12/17/24 21:00 Insulin Aspart (*Bkc) 100 Units/Ml SUB-Q HS PENDING SALE TO [facility] Protocol Lisinopril 20 mg 12/17/24 09:00 Lisinopril 20 Mg Tablet PO DAILY PENDING SALE TO [facility] Ondansetron HCl 4 mg 12/16/24 23:16 Ondansetron Inj 4 Mg/2 Ml Vial IV PUSH Q4H PRN Nausea Pravastatin Sodium 80 mg 12/17/24 21:00 Pravastatin Sodium 20 Mg Tablet PO HS PENDING SALE TO [facility] Tamsulosin HCl 0.4 mg 12/17/24 09:00 Tamsulosin Hcl 0.4 Mg Capsule PO DAILY VANESSA Trazodone HCl 200 mg 12/17/24 03:03 Trazodone Hcl 50 Mg Tablet PO HS PRN insomnia Radiology Results: ITS Impressions Abdomen/Pelvis CT 12/16/24 22:00 IMPRESSION: 1. 2 stones in the right ureter with right hydronephrotic changes. Tiny stone in the right kidney midpole. 2. No evidence of appendicitis, diverticulitis or intestinal obstruction. Labs Labs: Laboratory Results - last 24 hr 12/16/24 12/16/24 12/17/24 21:11 22:18 05:39 WBC 9.1 9.3 RBC 4.62 4.05 L Hgb 14.1 12.5 L Hct 41.0 L 36.5 L MCV 88.7 90.1 MCH 30.5 30.9 MCHC 34.4 34.2 RDW 12.6 12.6 Plt Count 329 284 MPV 9.3 9.4 Immature Gran % (Auto) 0.2 0.2 Neut % (Auto) 48.2 54.4 Lymph % (Auto) 40.0 34.9 [place] % (Auto) 9.1 H 8.3 Eos % (Auto) 2.1 1.8 Baso % (Auto) 0.4 0.4 Lymph # (Auto) 3.65 H 3.25 H [place] # (Auto) 0.8 H 0.8 H Eos # (Auto) 0.2 0.2 Baso # (Auto) 0.0 0.0 Abs Immat Gran (auto) 0.02 0.02 Absolute Neuts (auto) 4.4 5.1 Absolute Nucleated RBC 0.000 0.000 Nucleated RBC % 0.0 0.0 PT 12.6 INR 0.9 APTT 29.6 Sodium 141 140 Potassium 4.1 4.0 Chloride 105 108 H Carbon Dioxide 24 26 Anion Gap 12 6 BUN 21 H 21 H Creatinine 1.01 0.93 Estim Creat Clear Calc 77 83 Estimated GFR > 60 > 60 Glucose 117 H 113 H POC Capillary Glucose Hemoglobin A1c 6.3 H Calcium 9.9 9.3 Total Bilirubin 0.4 0.2 AST 23 21 ALT 24 20 Alkaline Phosphatase 56 54 Total Protein 7.0 6.0 L Albumin 4.5 3.9 Urine Color Yellow Urine Appearance Cloudy H Urine pH 7.0 Ur Specific [place] 1.035 Urine Protein Negative Urine Glucose (UA) Negative Urine Ketones Negative Ur Blood (Man) 2+ H Urine Nitrate Negative Urine Bilirubin Negative Urine Urobilinogen 1.0 Leukocyte Esterase Rfl Negative Urine RBC 21-50 H Urine WBC 0-5 Ur Squamous Epith Cells None seen Urine Bacteria None seen Urine Casts 0-2 12/17/24 06:15 WBC RBC Hgb Hct MCV MCH MCHC RDW Plt Count MPV Immature Gran % (Auto) Neut % (Auto) Lymph % (Auto) [place] % (Auto) Eos % (Auto) Baso % (Auto) Lymph # (Auto) [place] # (Auto) Eos # (Auto) Baso # (Auto) Abs Immat Gran (auto) Absolute Neuts (auto) Absolute Nucleated RBC Nucleated RBC % PT INR APTT Sodium Potassium Chloride Carbon Dioxide Anion Gap BUN Creatinine Estim Creat Clear Calc Estimated GFR Glucose POC Capillary Glucose 127 H Hemoglobin A1c Calcium Total Bilirubin AST ALT Alkaline Phosphatase Total Protein Albumin Urine Color Urine Appearance Urine pH Ur Specific [place] Urine Protein Urine Glucose (UA) Urine Ketones Ur Blood (Man) Urine Nitrate Urine Bilirubin Urine Urobilinogen Leukocyte Esterase Rfl Urine RBC Urine WBC Ur Squamous Epith Cells Urine Bacteria Urine Casts Quality VTE Prophylaxis VTE prophylaxis: mechanical ordered Hospitalist MIPS Advance Care Plan I have confirmed that the patient's Advanced Care Plan is present, code status is documented, or surrogate decision maker is listed in patient medical record.: Yes Medication Reconciliation I have utilized all available resources to obtain, update and review the patients current medications (includes all prescriptions, OTC, herbals, cannabis, and nutritional supplements).: Yes
[2024-12-17] MEDS: LACTATED RINGERS 1,000 ML 30 ML IV CONT ×2 (10:30→12:40)
[2024-12-17 11:08] LABS: Glucose Point of Care 120 mg/dl (65-105)
--- NOTE | 2024-12-17 11:48 | WPDHPUPDATE1 ---
History and Physical Update Update Date/Time: 12/17/24 11:48 History and Physical has been reviewed, including an updated exam of the patient. There are NO changes in the patient's condition. Risks, benefits, and alternatives have been discussed and questions answered. Patient agrees to proceed with procedure. Proceed with cystoscopy, right retrograde pyelogram, right ureteroscopy with possible laser, stone extraction, stent placement
--- NOTE | 2024-12-17 11:56 | P.PNAN_ITS ---
Anes - Initial Pre Proc Eval Procedure: Operation Date: 12/17/24 15:30 Proposed Procedures p Cystoscopy, Right Ureteroscopy, Possible Right Retrograde Pyelogram, Possible Right Stone Extraction, Possible Right Stent Placement, Possible Holmium Laser Procedure - Albin Mei MD Date/Time: 12/17/24 11:56 Surgeon: мДитрий Cortes MD Pre Op Diagnosis: ureteral stone Patient Data Age: 59 Gender: M Height: 1.85 m Weight: 102.7 kg Last Vital Signs Temp 36.0 C L 12/17/24 04:10 Pulse 65 12/17/24 04:10 Resp 20 12/17/24 04:10 BP 102/50 L 12/17/24 04:10 Pulse Ox 95 12/17/24 04:10 O2 Del Method Room Air 12/17/24 08:00 Allergies Allergy/AdvReac Type Severity Reaction Status Date / Time escitalopram Allergy Intermediate altered Verified 12/17/24 11:34 mood changes Home Medications ?Medication ?Instructions ?Recorded ?Confirmed ?Type amlodipine 10 mg tablet 10 mg PO DAILY 03/20/20 12/17/24 History fenofibrate 50 mg capsule 50 mg PO DAILY 03/20/20 12/17/24 History omeprazole 20 mg capsule,delayed 20 mg PO DAILY 03/20/20 12/17/24 History release trazodone 100 mg tablet 200 mg PO HS PRN insomnia 03/20/20 12/17/24 History omega 1-plo-cyo-fish oil 1,000 mg 1 cap PO DAILY 04/18/20 12/17/24 History (120 mg-180 mg) capsule (Fish Oil) tamsulosin 0.4 mg capsule (Flomax) 0.4 mg PO DAILY #7 caps 05/02/22 12/17/24 Rx diazepam 5 mg tablet 2.5 mg PO HS 12/17/24 12/17/24 History hydrochlorothiazide 25 mg tablet 25 mg PO DAILY 12/17/24 12/17/24 History lisinopril 40 mg tablet 20 mg PO DAILY 12/17/24 12/17/24 History pravastatin 80 mg tablet 80 mg PO HS 12/17/24 12/17/24 History prazosin 2 mg capsule 2 mg PO HS 12/17/24 12/17/24 History Laboratory Tests 12/16/24 12/16/2412/17/25 21:11 22:18 05:39 WBC 9.1 K/mm3 9.3 K/mm3 (4.5-10.0) (4.5-10.0) RBC 4.62 M/mm3 4.05 L M/mm3 (4.6-6.20) (4.6-6.20) Hgb 14.1 g/dL 12.5 L g/dL (14.0-18.0) (14.0-18.0) Hct 41.0 L % 36.5 L % (42.0-52.0) (42.0-52.0) MCV 88.7 fl 90.1 fl (80-100) (80-100) MCH 30.5 pg 30.9 pg (26-34) (26-34) MCHC 34.4 g/dl 34.2 g/dl (32-36) (32-36) RDW 12.6 % 12.6 % (11.5-14.5) (11.5-14.5) Plt Count 329 k/mm3 284 k/mm3 (150-375) (150-375) MPV 9.3 fl 9.4 fl (7.4-10.4) (7.4-10.4) Immature Gran % (Auto) 0.2 % 0.2 % (0-0.5) (0-0.5) Neut % (Auto) 48.2 % 54.4 % (45.5-73.1) (45.5-73.1) Lymph % (Auto) 40.0 % 34.9 % (18.3-44.2) (18.3-44.2) [place] % (Auto) 9.1 H % 8.3 % (2.6-8.5) (2.6-8.5) Eos % (Auto) 2.1 % 1.8 % (0-4.4) (0-4.4) Baso % (Auto) 0.4 % 0.4 % (0.2-1.2) (0.2-1.2) Lymph # (Auto) 3.65 H K/mm3 3.25 H K/mm3 (0.9-3.2) (0.9-3.2) [place] # (Auto) 0.8 H K/mm3 0.8 H K/mm3 (0.1-0.6) (0.1-0.6) Eos # (Auto) 0.2 K/mm3 0.2 K/mm3 (0-0.3) (0-0.3) Baso # (Auto) 0.0 K/mm3 0.0 K/mm3 (0.0-0.1) (0.0-0.1) Abs Immat Gran (auto) 0.02 K/mm3 0.02 K/mm3 (0.00-0.031) (0.00-0.031) Absolute Neuts (auto) 4.4 K/mm3 5.1 K/mm3 (1.3-6.7) (1.3-6.7) Absolute Nucleated RBC 0.000 K/mm3 0.000 K/mm3 (0.0-0.012) (0.0-0.012) Nucleated RBC % 0.0 % 0.0 % (0.0-0.2) (0.0-0.2) PT 12.6 Seconds (11.1-14.7) INR 0.9 APTT 29.6 Seconds (22.3-36.8) Sodium 141 mmol/L 140 mmol/L (137-145) (137-145) Potassium 4.1 mmol/L 4.0 mmol/L (3.4-5.0) (3.4-5.0) Chloride 105 mmol/L 108 H mmol/L (98-107) (98-107) Carbon Dioxide 24 mmol/L 26 mmol/L (22-30) (22-30) Anion Gap 12 mmol/L 6 mmol/L (4-12) (4-12) BUN 21 H mg/dL 21 H mg/dL (9-20) (9-20) Creatinine 1.01 mg/dL 0.93 mg/dL (0.7-1.3) (0.7-1.3) Estim Creat Clear Calc 77 ml/min 83 ml/min Estimated GFR > 60 > 60 (59 - ) (59 - ) Glucose 117 H mg/dL 113 H mg/dL (65-110) (65-110) POC Capillary Glucose Hemoglobin A1c 6.3 H % (<5.7) Calcium 9.9 mg/dL 9.3 mg/dL (8.4-10.2) (8.4-10.2) Total Bilirubin 0.4 mg/dL 0.2 mg/dL (0.2-1.3) (0.2-1.3) AST 23 U/L 21 U/L (17-59) (17-59) ALT 24 U/L 20 U/L (6-50) (6-50) Alkaline Phosphatase 56 U/L 54 U/L (38-126) (38-126) Total Protein 7.0 g/dL 6.0 L g/dL (6.3-8.2) (6.3-8.2) Albumin 4.5 g/dL 3.9 g/dL (3.5-5.1) (3.5-5.1) Urine Color Yellow (Yellow) Urine Appearance Cloudy H (Clear) Urine pH 7.0 (5.0-9.0) Ur Specific [place] 1.035 (1.001-1.035) Urine Protein Negative mg/dL (Negative) Urine Glucose (UA) Negative mg/dL (Negative) Urine Ketones Negative mg/dL (Negative) Ur Blood (Man) 2+ H (Negative) Urine Nitrate Negative (Negative) Urine Bilirubin Negative (Negative) Urine Urobilinogen 1.0 mg/dL (<2.0) Leukocyte Esterase Rfl Negative JEANETTE/UL (Negative) Urine RBC 21-50 H /hpf (0-2) Urine WBC 0-5 /hpf (0-3) Ur Squamous Epith Cells None seen /hpf (Few) Urine Bacteria None seen /hpf Urine Casts 0-2 12/17/24 12/17/24 06:15 11:05 WBC RBC Hgb Hct MCV MCH MCHC RDW Plt Count MPV Immature Gran % (Auto) Neut % (Auto) Lymph % (Auto) [place] % (Auto) Eos % (Auto) Baso % (Auto) Lymph # (Auto) [place] # (Auto) Eos # (Auto) Baso # (Auto) Abs Immat Gran (auto) Absolute Neuts (auto) Absolute Nucleated RBC Nucleated RBC % PT INR APTT Sodium Potassium Chloride Carbon Dioxide Anion Gap BUN Creatinine Estim Creat Clear Calc Estimated GFR Glucose POC Capillary Glucose 127 H mg/dl 120 H mg/dl (65-105) (65-105) Hemoglobin A1c Calcium Total Bilirubin AST ALT Alkaline Phosphatase Total Protein Albumin Urine Color Urine Appearance Urine pH Ur Specific [place] Urine Protein Urine Glucose (UA) Urine Ketones Ur Blood (Man) Urine Nitrate Urine Bilirubin Urine Urobilinogen Leukocyte Esterase Rfl Urine RBC Urine WBC Ur Squamous Epith Cells Urine Bacteria Urine Casts Patient hx anesthesia problems: none Family hx anesthesia problems: none Results Review: All pre-operative results and documents have been reviewed as part of the pre-o perative evaluation. [facility] Past Medical History Medical History Diabetes GERD (gastroesophageal reflux disease) Posttraumatic stress disorder Left ureteral stone April 2022 Anxiety Medial meniscus tear Fusion of carpal bone, congenital HTN (hypertension) HLD (hyperlipidemia) Vision abnormalities Right knee pain Depression Surgical History Surgical History H/O right wrist surgery H/O umbilical hernia repair H/O ureteroscopy 05/10/2022; left; Dr Mei H/O cystoscopy 05/10/22; Dr Mei Family History Family History Unknown Cardiovascular disease Diabetes mellitus Hypertension Cancer Nerve disorder Arthritis Social History Social History Smoking packs per day: 1 Smoking cigarettes per day: 20.0 Years smoked: 20 Smoking pack-years: 20.00 Smoking status: Former smoker Second hand tobacco smoke exposure: No Additional smoking assessment comments: QUIT 20 YEARS AGO Alcohol intake: current Drinks per week: 1 Alcohol use details: RARE Substance use: former Substance use type: marijuana Other substance usage details: MULTIPLE DRUGS TEENAGER AND YOUNG ADULT Do You Feel Safe in your Home?: Yes Lack of Transportation: No Lack of Food: Never True Current Housing: I Have Housing Concerned About Future Housing: No Difficulty Paying Gas/Electric Bills: No Difficulty Paying for Meds: No Currently Unemployed: No Education: Bachelor's Degree Difficulty w/ Childcare or Family Care: No Living arrangements: with family Occupation/Education: retired 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 [employer] Gender identity (if verbalized by the patient): Male Sexual Orientation (if Verbalized by the Patient): Straight or Heterosexual Spiritual care concerns: No Agree to blood products: Yes Anes - Eval Final PreProcedure Day of Procedure 12/17/24 11:56 Patient weight: overweight Heart: regular rate and rhythm Lungs: clear to auscultation Airway: Mallampati scale class II Neurological: alert and oriented Last oral intake: >/= 8 hours ASA classification: III Emergent: no Anesthetic plan: proceed Anesthesia type and monitoring: general LMA and standard monitoring Results Review: All pre-operative results and documents have been reviewed as part of the pre-operative evaluation. Informed Consent: The patient's anesthetic plan and its attendant risks and benefits were discussed with the patient/family/POA. Questions were solicited and answers provided to the satisfaction of the patient/family/POA.
[2024-12-17] MEDS: ceFAZolin SODIUM 1 GM VIAL IV PUSH (12:10)
[2024-12-17] MEDS: LIDOCAINE 2% GEL UROJET 10 ML PKG MUCOUS MEM (12:14)
--- NOTE | 2024-12-17 12:39 | P.OP_ITS ---
Procedure Note - Detailed Date of Procedure 12/17/24 Pre-op Diagnosis Right ureteral stone stones-8 mm and 4 mm proximally Post-op Diagnosis Same Procedure Performed Cystoscopy, right retrograde, right ureteroscopy with holmium laser, stone extraction, right ureteral stent placement 4.8 Sammarinese contour Surgeon Albni Mei MD Anesthesia General Description of Procedure Patient was taken to the operative suite correctly identified. Once anesthesia was obtained he was placed in dorsal lithotomy position and prepped and draped usual sterile fashion. Nineteen Sammarinese scope was inserted the bladder. There were no tumors. Right ureteral orifice was cannulated with a guidewire. I dilated the orifice with an 8/10 dilator. Rigid ureteral scope was inserted. There was a 4-5 mm stone noted somewhat impacted distally. Using a 200 micron fiber I fragmented this stone into a cup the largest pieces. I then advanced the scope up to the proximal stone. As I was lasering it 1 of the fragments flushed back into the kidney. I thus placed a ureteral access sheath and a mini flexible ureteral scope and. In the kidney I dusted the stone. Pyelogram was then performed confirm placement of the stent. 4.8 Sammarinese contour stent was then placed with the proximal end coiled in the renal pelvis and the distal end in the bladder. Bladder was drained. 2% viscous lidocaine was inserted into the urethra patient is taken recovery room stable condition. From my standpoint he can be discharged home later today and follow up in the office in a week for stent removal. Call for appointment. This completes dictation. Please send a copy of op note to my office Estimated Blood Loss 0 Urine Output 375 Drains Yes Packing No Pathology Yes Complications No immediate complications Condition Stable Disposition PACU
[2024-12-17 12:46] LABS: Glucose Point of Care 124 mg/dl (65-105)
[2024-12-17] MEDS: fentaNYL CITRATE INJ (*CRX) 100 MCG/2 ML VIAL 25 MCG IV PUSH ×3 (13:00→13:29)
[2024-12-17] MEDS: OMEGA 3 POLYUNSAT FATTY ACIDS 1 GM CAP PO (14:04)
[2024-12-17] MEDS: lisinopriL 20 MG TABLET PO (14:04)
[2024-12-17] MEDS: FENOFIBRATE,MICRONIZED 48 MG TABLET PO (14:04)
[2024-12-17] MEDS: hydroCHLOROthiazide 25 MG TABLET PO (14:04)
[2024-12-17] MEDS: TAMSULOSIN HCL 0.4 MG CAPSULE PO (14:04)
[2024-12-17] MEDS: amLODIPine BESYLATE 10 MG TABLET PO (14:04)
[2024-12-17 16:18] LABS: Glucose Point of Care 131 mg/dl (65-105)
[2024-12-17] MEDS: traZODone HCL 50 MG TABLET 200 MG PO (20:15)
[2024-12-17] MEDS: PRAVASTATIN SODIUM 20 MG TABLET 80 MG PO (20:15)
[2024-12-17] MEDS: diazePAM (*CRX) 2.5 MG TABLET PO (20:15)
[2024-12-17] MEDS: HYDROcodone/acetaminophen (*CRX) 5-325 MG TABLET 1 TAB PO (20:32)
[2024-12-17 20:43] LABS: Glucose Point of Care 137 mg/dl (65-105)
[2024-12-18 00:25] VITALS: BP 119/56; PULSE 61; RESP 20; TEMP 35.8; O2SAT 97
[2024-12-18] MEDS: fentaNYL CITRATE INJ (*CRX) 100 MCG/2 ML VIAL 50 MCG IV PUSH ×2 (04:19→09:15)
[2024-12-18] MEDS: HYDROcodone/acetaminophen (*CRX) 5-325 MG TABLET 1 TAB PO ×3 (05:25→14:04)
--- NOTE | 2024-12-18 06:26 | PC.NURSE ---
Was not able to strain patient's urine from urinal this morning which is on sink next to toilet. He is independent, in room. He stated, I didn't feel like using the urinal, I was too sleepy. I explained, without being able to strain urine, we cannot determine if he passed a stone. Moving forward he started he will start back urinating in urinal to be strained.
[2024-12-18 06:38] LABS: Basophils Absolute Auto 0.1 K/mm3 (0.0-0.1); Basophils Percent Auto 0.4 % (0.2-1.2); Eosinophils Absolute Auto 0.2 K/mm3 (0-0.3); Eosinophils Percent Auto 1.7 % (0-4.4); Hematocrit 39.4 % (42.0-52.0); Hemoglobin 12.9 g/dL (14.0-18.0); Immature Granulocyte Absolute 0.04 K/mm3 (0.00-0.031); Immature Granulocyte Percent A 0.3 % (0-0.5); Lymphocytes Percent Auto 19.6 % (18.3-44.2); Mean Corpuscular HGB Conc 32.7 g/dl (32-36); Mean Corpuscular Hemoglobin 30.1 pg (26-34); Mean Corpuscular Volume 91.8 fl (80-100); Mean Platelet Volume 9.1 fl (7.4-10.4); Monocytes Absolute Auto 0.9 K/mm3 (0.1-0.6); Monocytes Percent Auto 6.8 % (2.6-8.5); Neutrophils Absolute Auto 9.1 K/mm3 (1.3-6.7); Neutrophils Percent Auto 71.2 % (45.5-73.1); Platelet Count Result 293 k/mm3 (150-375); Red Blood Count 4.29 M/mm3 (4.6-6.20); Red Cell Distribution Width 12.8 % (11.5-14.5); White Blood Count 12.8 K/mm3 (4.5-10.0)
[2024-12-18 06:52] LABS: Alanine Aminotransferase 20 U/L (6-50); Alkaline Phosphatase 51 U/L (38-126); Anion Gap 7 mmol/L (4-12); Aspartate Amino Transferase 22 U/L (17-59); Bilirubin,Total 0.7 mg/dL (0.2-1.3); Blood Urea Nitrogen 14 mg/dL (9-20); Calcium 9.7 mg/dL (8.4-10.2); Carbon Dioxide 30 mmol/L (22-30); Chloride 102 mmol/L (98-107); Estimated CRCL calculation 81 ml/min; Estimated Glomerular Filt Rate > 60; Glucose 133 mg/dL (65-110); Potassium 3.9 mmol/L (3.4-5.0); Sodium 139 mmol/L (137-145)
[2024-12-18 08:24] LABS: Glucose Point of Care 138 mg/dl (65-105)
[2024-12-18] MEDS: FENOFIBRATE,MICRONIZED 48 MG TABLET PO (09:16)
[2024-12-18] MEDS: amLODIPine BESYLATE 10 MG TABLET PO (09:16)
[2024-12-18] MEDS: lisinopriL 20 MG TABLET PO (09:16)
[2024-12-18] MEDS: TAMSULOSIN HCL 0.4 MG CAPSULE PO (09:16)
[2024-12-18] MEDS: OMEGA 3 POLYUNSAT FATTY ACIDS 1 GM CAP PO (09:16)
[2024-12-18] MEDS: hydroCHLOROthiazide 25 MG TABLET PO (09:16)
[2024-12-18 11:08] LABS: Glucose Point of Care 103 mg/dl (65-105)
[2024-12-18 14:00] VITALS: BP 139/55; PULSE 75; RESP 16; TEMP 37; O2SAT 99
--- NOTE | 2024-12-18 14:56 | P.DS_ITS ---
DS: Admitting Diagnosis Discharge Date 12/18/2024 Admitting Diagnosis Abdominal pain DS: Discharge Diagnosis Discharge Diagnosis (1) Right ureteral calculus: Code(s): N20.1 - Calculus of ureter Status: Acute Assessment and Plan: * Abdomen/pelvis CT showed 2 stones in the right ureter with right hydronephrotic changes, tiny stone in the right kidney midpole, no evidence of appendicitis, diverticulitis or intestinal obstruction * Initial labs and UA were essentially unremarkable. * Urology consulted * Continue IV fluids at 125 mL/hour * Underwent Cystoscopy, right retrograde, right ureteroscopy with holmium laser, stone extraction, right ureteral stent placement 4.8 * Order to Strain urine * Continue pain and nausea control * Continue tamsulosin (2) HTN (hypertension): Code(s): I10 - Essential (primary) hypertension Status: Acute Assessment and Plan: * Blood pressure ranging 129/66 to 177/92 * Continue lisinopril, amlodipine, and hydrochlorothiazide (3) HLD (hyperlipidemia): Code(s): E78.5 - Hyperlipidemia, unspecified Status: Acute Assessment and Plan: * Continue [place] 3, pravastatin and fenofibrate (4) Diabetes: Code(s): E11.9 - Type 2 diabetes mellitus without complications Status: Acute Assessment and Plan: * Blood sugar 117 * Hgb A1C 6.3 * Accu checks q.6 * Moderate SSI ordered * hypoglycemic protocol in place * Currently NPO * Not currently on any home medications DS: Summary Hospital Course Hospital Course: 59-year-old male with a significant past medical history of anxiety, kidney stones, hypertension, hyperlipidemia, depression, GERD, diabetes anxiety, posttraumatic stress disorder former smoker who presented to the hospital with complaints of right flank pain that radiates to the abdomen and right groin. Workup in the hospital included an abdomen/pelvis CT with contrast which shown 2 mm stone in the right ureter with right hydronephrotic changes, tiny stone in the right kidney midpole, no evidence of appendicitis, diverticulitis or intestinal obstruction. Initial labs showed a normal white blood cell count of 9.1, blood sugar 117, otherwise unremarkable. UA showed cloudy urine appearance, 2+ urine blood, 21-50 urine RBC otherwise negative. Patient was given Zofran and pain medication while in the ED. He was started on normal saline at 125 mL/hour and Urology was consulted. Underwent Cystoscopy, right retrograde, right ureteroscopy with holmium laser, stone extraction, right ureteral stent placement. Patient had elevated WBC but no evidence of fever,chills or low BP. Patient does have pain during urination. Since patient underwent urologic procedure will do 3 day course of Bactrim DS and advised to follow up Urology for stent removal and CBC f/u with either Urology or PCP. Status at Discharge Cognitive/behavioral status at discharge: Stable Time Spent with Patient Time attestation: Total time spent providing and/or coordinating discharge services:45 minutes Exam Narrative: General: In no acute distress, well nourished Head: atraumatic, no encephalopathy Eyes: PERRLA, sclera clear ENT: moist mucous membranes, nasal passages clear Neck: supple, no JVD, no adenopathy, trachea midline Cardiac: Normal S1 and S2. RRR, No murmur, gallops or friction rubs, peripheral pulses intact. Respiratory: Lungs clear to auscultation, no adventitious lung sounds, currently on room air Gastrointestinal: soft, non-distended, non-tender, normoactive bowel sounds. : reporting right flank pain that radiates to the abdomen and extends to the groin. Extremities: moves all extremities well, no edema Skin: clean, dry, intact. No wounds or lesions. Neuro: Alert and oriented x4, cranial nerves intact, no neuro deficits. Psych: normal mood, normal affect, interactive DS: Data Data Completed and Pending Pending studies at discharge: Pending at discharge 12/17/24 12:22 Surgical [PTH] Routine Labs on day of discharge: Labs from last 24 hours 12/18/24 12/18/24 12/18/24 11:06 07:43 06:23 WBC 12.8 H RBC 4.29 L Hgb 12.9 L Hct 39.4 L MCV 91.8 MCH 30.1 MCHC 32.7 RDW 12.8 Plt Count 293 MPV 9.1 Immature Gran % (Auto) 0.3 Neut % (Auto) 71.2 Lymph % (Auto) 19.6 [place] % (Auto) 6.8 Eos % (Auto) 1.7 Baso % (Auto) 0.4 Lymph # (Auto) 2.50 [place] # (Auto) 0.9 H Eos # (Auto) 0.2 Baso # (Auto) 0.1 Abs Immat Gran (auto) 0.04 H Absolute Neuts (auto) 9.1 H Absolute Nucleated RBC 0.000 Nucleated RBC % 0.0 Sodium Potassium Chloride Carbon Dioxide Anion Gap BUN Creatinine Estim Creat Clear Calc Estimated GFR Glucose POC Capillary Glucose 103 138 H Calcium Total Bilirubin AST ALT Alkaline Phosphatase Total Protein Albumin 12/18/24 12/17/24 12/17/24 06:22 20:08 15:43 WBC RBC Hgb Hct MCV MCH MCHC RDW Plt Count MPV Immature Gran % (Auto) Neut % (Auto) Lymph % (Auto) [place] % (Auto) Eos % (Auto) Baso % (Auto) Lymph # (Auto) [place] # (Auto) Eos # (Auto) Baso # (Auto) Abs Immat Gran (auto) Absolute Neuts (auto) Absolute Nucleated RBC Nucleated RBC % Sodium 139 Potassium 3.9 Chloride 102 Carbon Dioxide 30 Anion Gap 7 BUN 14 D Creatinine 0.95 Estim Creat Clear Calc 81 Estimated GFR > 60 Glucose 133 H POC Capillary Glucose 137 H 131 H Calcium 9.7 Total Bilirubin 0.7 AST 22 ALT 20 Alkaline Phosphatase 51 Total Protein 6.0 L Albumin 4.0 Discharge Plan Discharge Attending physician on discharge: Дмитрий Cortes Consulting providers: Tyler Joyner Discharging Clinician: Дмитрий Cortes Anticipated Discharge Date/Time: 12/18/24 14:31 Patient Disposition: Home, Self-Care Activity: as tolerated Diet: diabetic Discharge Instructions: Patient needs to follow-up with urology in a week upon discharge for stent removal. Patient will be discharged with Bactrim DS for 3 days Please follow-up CBC with PCP/Urology in a week Patient Instructions: Antibiotic Form, Kidney Stones (DC), Pain Management (DC), Narcotic Safety (DC) Patient Language: [place] Stand Alone Forms: General Discharge Information Follow-up/Referrals: Tyler Joyner MD [Physician] - (For stent removal) Discharge Medications: New hydrocodone-acetaminophen 5-325 mg Tablet 1 tablet PO Q4H PRN (Reason: Pain Rated 4-6) Qty: 10 0RF sulfamethoxazole-trimethoprim [Bactrim DS] 800-160 mg tablet 1 tablet PO Q12H Qty: 10 0RF Rx Instructions: Please take one tab 2 times a day for 3 days( 12/18-12/20) Continued trazodone 100 mg tablet 200 mg PO HS PRN (Reason: insomnia) amlodipine 10 mg tablet 10 mg PO DAILY fenofibrate 50 mg capsule 50 mg PO DAILY omeprazole 20 mg capsule,delayed release(DR/EC) 20 mg PO DAILY omega 1-bve-fbb-fish oil [Fish Oil] 1,000 mg (120 mg-180 mg) Capsule 1 cap PO DAILY Patient Comments: 2 TABS DAILY diazepam 5 mg tablet 2.5 mg PO HS hydrochlorothiazide 25 mg tablet 25 mg PO DAILY lisinopril 40 mg tablet 20 mg PO DAILY pravastatin 80 mg tablet 80 mg PO HS prazosin 2 mg capsule 2 mg PO HS tamsulosin [Flomax] 0.4 mg capsule 0.4 mg PO DAILY Qty: 7 0RF Other Ambulatory Orders: Complete Blood Count no Diff (Routine) Timeframe: 1 Week Location: Determined by Patient Ordered By: Дмитрий Cortes Date of admission: 12/16/24 23:16 Primary Care Provider: PHYSICIAN NOT ON STAFF,NONSTAFF Admitting Provider: Дмитрий Cortes Attending physician on admission: Дмитрий Cortes Condition: Stable
--- NOTE | 2024-12-18 16:33 | P.PNAN_ITS ---
Anes - Prog Note Post-Op Date/Time: 12/18/24 16:33 Cardiovascular status: normal Respiratory status: normal Airway patency: baseline Mental status: baseline Post-Op hydration status: normal Vital Signs: Last Vital Signs Temp 37.0 C 12/18/24 14:00 Pulse 75 12/18/24 14:00 Resp 16 12/18/24 14:00 BP 139/55 L 12/18/24 14:00 Pulse Ox 99 12/18/24 14:00 O2 Del Method Room Air 12/18/24 08:00 O2 Flow Rate 8 12/17/24 12:55 Pain Score (VAS): 2 I/O: Intake & Output 12/18/24 12/18/24 12/18/24 07:59 15:59 23:59 Intake Total 650 960 Output Total 175 Balance 475 960 Laboratory Tests 12/18/24 06:23 12/18/24 06:22 12/17/24 12/18/24 12/18/24 20:08 06:22 06:23 WBC 12.8 H RBC 4.29 L Hgb 12.9 L Hct 39.4 L MCV 91.8 MCH 30.1 MCHC 32.7 RDW 12.8 Plt Count 293 MPV 9.1 Immature Gran % (Auto) 0.3 Neut % (Auto) 71.2 Lymph % (Auto) 19.6 [place] % (Auto) 6.8 Eos % (Auto) 1.7 Baso % (Auto) 0.4 Lymph # (Auto) 2.50 [place] # (Auto) 0.9 H Eos # (Auto) 0.2 Baso # (Auto) 0.1 Abs Immat Gran (auto) 0.04 H Absolute Neuts (auto) 9.1 H Absolute Nucleated RBC 0.000 Nucleated RBC % 0.0 Sodium 139 Potassium 3.9 Chloride 102 Carbon Dioxide 30 Anion Gap 7 BUN 14 D Creatinine 0.95 Estim Creat Clear Calc 81 Estimated GFR > 60 Glucose 133 H POC Capillary Glucose 137 H Calcium 9.7 Total Bilirubin 0.7 AST 22 ALT 20 Alkaline Phosphatase 51 Total Protein 6.0 L Albumin 4.0 12/18/24 12/18/24 07:43 11:06 WBC RBC Hgb Hct MCV MCH MCHC RDW Plt Count MPV Immature Gran % (Auto) Neut % (Auto) Lymph % (Auto) [place] % (Auto) Eos % (Auto) Baso % (Auto) Lymph # (Auto) [place] # (Auto) Eos # (Auto) Baso # (Auto) Abs Immat Gran (auto) Absolute Neuts (auto) Absolute Nucleated RBC Nucleated RBC % Sodium Potassium Chloride Carbon Dioxide Anion Gap BUN Creatinine Estim Creat Clear Calc Estimated GFR Glucose POC Capillary Glucose 138 H 103 Calcium Total Bilirubin AST ALT Alkaline Phosphatase Total Protein Albumin Post-procedural complaints: none Patient Feedback: Patient satisfied with anesthetic care.
== END 2024-12-18 15:29 | disposition home or self-care (01) ==
LOC: ANHED 23:46 → ANH3MEDSUR 12-17 00:07
PROVIDERS: Nurse Practitioner Acute Care; Urology; Admitting Provider General Practice; Emergency Provider Student in an Organized Health Care Education/Training Program; Visit Provider General Practice
PROC: (CPT 52352; principal; 2024-12-17 15:30)
DX: N20.1 Calculus of ureter (principal); Z87.442 Personal history of urinary calculi; E11.9 Type 2 diabetes mellitus without complications; I10 Essential (primary) hypertension; E78.5 Hyperlipidemia, unspecified; K21.9 Gastro-esophageal reflux disease without esophagitis; F43.10 Post-traumatic stress disorder, unspecified; F41.9 Anxiety disorder, unspecified; F32.A Depression, unspecified; Z87.891 Personal history of nicotine dependence; Z79.899 Other long term (current) drug therapy
CPT/HCPCS: 52325; 52332; 36415; 74177; 80053; 81001; 82365; 82948; 83036; 85025; 85610; 85730; 88300; 96374; 96375; 96376; 99285; A9270; C1769; C1894; C2617; G0378; J0690; J1171; J2250; J2270; J2405; J2704; J3010; J7030; J7120; Q9966; Q9967